=== PATIENT | male | born 1975 | race Caucasian/White ===

== ENCOUNTER 2020-10-20 10:57 | Outpatient (CLI) | payer OTHER, SELFPAY ==
[2020-10-20 11:46] LABS: SARS-CoV-2 Ag Negative (Negative)
== END 2020-10-20 10:58 | disposition home or self-care (01) ==
LOC: CHSLAB 11:04
PROVIDERS: PCP Family Medicine; Visit Provider Family Medicine
DX: Z20.828 Contact with and (suspected) exposure to other viral communicable diseases (principal)
CPT/HCPCS: 87426

== ENCOUNTER 2020-12-30 05:42 | Inpatient (IN) | payer OTHER, SELFPAY ==
[2020-12-30] VITALS (11 sets, daily range): BP systolic 121–152; BP diastolic 39–101; PULSE 79–106; RESP 14–20; TEMP 36.6–38.4; O2SAT 94–98; BMI 28.5
--- NOTE | ~2020-12-30 | US_ITS ---
EXAMINATION: US right upper quadrant EXAM DATE: 12/30/2020 15:57 INDICATION: Pancreatitis, elevated lipase. TECHNIQUE: Multiple grayscale and Doppler images of the abdomen right upper quadrant were obtained (b y a technologist who performed the scan) and subsequently reviewed. There is no prior study for samia moralez. FINDINGS: The pancreatic head and body are normal in appearance. The pancreatic tail is not visualized. Please note that acute uncomplicated pancreatitis typically does not have any sonographic findings. The froilan er has normal echogenicity and contour. There are no focal liver lesions identified. There is no e vidence of intrahepatic biliary duct dilation. Portal venous flow was seen in the hepatopedal, jayna l direction and has normal Doppler waveform. No right-sided hydronephrosis. Common bile duct measures 5 mm, which is normal. The gallbladder wall is normal in thickness, with ex pected amount of distention. No sonographic evidence of pericholecystic fluid. There is no cholelit hiases. Technologist performing exam reports patient did not demonstrate sonographic Spaulding's sign. Please note that this sign is less reliable in patients who have received pain medication. IMPRESSION: Unremarkable abdominal ultrasound exam. Reviewed, dictated and finalized at location B. SPLITTER
--- NOTE | ~2020-12-30 | CT_ITS ---
EXAMINATION: CT abdomen pelvis w con INDICATION: Abdominal pain, elevated lipase TECHNIQUE: Computed tomographic images of the abdomen and pelvis were obtained after the administrati on of 100 cc of Omnipaque 350 intravenous contrast. The dose-length product (DLP) was 795.88 mGy-cm. Automated exposure control and iterative reconstruction technique were employed. COMPARISON: None available FINDINGS: The lung bases are clear. The heart size is normal. The liver is diffusely low in attenuati on when compared with the spleen, consistent with hepatic steatosis. Small areas of low attenuation i n the spleen could reflect old granulomatous disease. The gallbladder and adrenal glands are normal. There is mild fat stranding surrounding the pancreas. There is also minimal inflammation surrounding the second portion of the duodenum. A 1.7 cm cystic lesion is present in the body of the pancreas. Cy sts of the kidneys measure up to 10 mm on the right. No pathologically enlarged abdominal or pelvic l ymph nodes are identified. There is no free intraperitoneal gas or evidence of bowel obstruction. The appendix is normal. There is a small fat-containing umbilical hernia. A mixed lytic and sclerotic le kourtney of the right femoral neck has the appearance of an enchondroma. IMPRESSION: 1. Findings consistent with acute pancreatitis. 2. Cystic lesion in the body of the pancreas could reflect sequela of prior pancreatitis. Follow-up M RI without and with contrast in six months is recommended. Reviewed, dictated and finalized at location A. L STRETCHER IMPRESSION: 1. Findings consistent with acute pancreatitis. 2. Cystic lesion in the body of the pancreas could reflect sequela of prior day creatitis. Follow-up MRI without and with contrast in six months is recommended .
--- NOTE | 2020-12-30 05:51 | ED.ABDPAIN ---
HPI - Abdominal Pain General Chief Complaint: Abdominal Pain <Emerson Beebe MD - Last Filed: 12/30/20 06:27> Stated Complaint: adominal pain <Emerson Beebe MD - Last Filed: 12/30/20 06:27> Time Seen by Provider: 12/30/20 05:52 <Emerson Beebe MD - Last Filed: 12/30/20 06:27> Source: patient <Emerson Beebe MD - Last Filed: 12/30/20 06:27> Mode of arrival: ambulatory <Emerson Beebe MD - Last Filed: 12/30/20 06:27> Limitations: no limitations <Emerson Beebe MD - Last Filed: 12/30/20 06:27> History of Present Illness HPI narrative: 45-year-old man with a history of coronary artery disease comes in today complaining abdominal pain S started about 1:00 a.m.. Patient states that it was originally in the middle of his abdomen is now moved to his right lower quadrant. It is worse with movement and coughing. He has also had some Nonbloody nonbilious vomiting which now has some streaks of blood in it. He denies chest pain, shortness breath, syncope, diarrhea or blood in his stools, cough or cold symptoms, or prior similar symptoms. <Emerson Beebe MD - Last Filed: 12/30/20 06:27> MD elicited complaint: abdominal pain <Emerson Beebe MD - Last Filed: 12/30/20 06:27> Pertinent past history: myocardial infarction <Emerson Beebe MD - Last Filed: 12/30/20 06:27> Onset (ago): hour(s) (5) <Emerson Beebe MD - Last Filed: 12/30/20 06:27> Pain Consistency: constant <Emerson Beebe MD - Last Filed: 12/30/20 06:27> Location: RLQ <Emerson Beebe MD - Last Filed: 12/30/20 06:27> Severity: severe <Emerson Beebe MD - Last Filed: 12/30/20 06:27> Quality: sharp <Emerson Beebe MD - Last Filed: 12/30/20 06:27> Radiation: back <Emerson Beebe MD - Last Filed: 12/30/20 06:27> Exacerbating factors: movement and other (palpation) <Emerson Beebe MD - Last Filed: 12/30/20 06:27> Relieving factors: rest <Emerson Beebe MD - Last Filed: 12/30/20 06:27> Associated symptoms: nausea and vomiting <Emerson Beebe MD - Last Filed: 12/30/20 06:27> Related Data Home Medications: Home Medications Medication Instructions Recorded Confirmed aspirin 81 mg PO DAILY 12/30/20 12/30/20 atorvastatin 20 mg PO DAILY 12/30/20 12/30/20 clonazepam [Klonopin] 0.5 mg PO HS 12/30/20 12/30/20 metoprolol succinate 25 mg PO BID 12/30/20 12/30/20 venlafaxine 37.5 mg PO BID 12/30/20 12/30/20 <Emerson Beebe MD - Last Filed: 12/30/20 06:27> Allergies/Adverse Reactions: Allergies Allergy/AdvReac Type Severity Reaction Status Date / Time No Known Allergies Allergy Verified 12/30/20 05:53 <Emerson Beebe MD - Last Filed: 12/30/20 06:27> Review of Systems Constitutional: Constitutional: Denies chills and Denies fever(s) <Emerson Beebe MD - Last Filed: 12/30/20 06:27> Eyes: Eyes: Denies change in vision and Denies photophobia <Emerson Beebe MD - Last Filed: 12/30/20 06:27> ENT: Denies nasal congestion and Denies sore throat <Emerson Beebe MD - Last Filed: 12/30/20 06:27> Cardiovascular: Cardiovascular: Denies chest pain and Denies radiating jaw, neck or arm pain <Emerson Beebe MD - Last Filed: 12/30/20 06:27> Respiratory: Respiratory: Denies cough and Denies dyspnea <Emerson Beebe MD - Last Filed: 12/30/20 06:27> Gastrointestinal: Gastrointestinal: Reports as per HPI, Reports abdominal pain, Reports nausea and Reports vomiting <Emerson Beebe MD - Last Filed: 12/30/20 06:27> Genitourinary: Genitourinary: Denies hematuria, Denies dysuria and Denies urinary frequency <Emerson Beebe MD - Last Filed: 12/30/20 06:27> Musculoskeletal: Musculoskeletal: Denies back pain, Denies arthralgias and Denies joint swelling <Emerson Beebe MD - Last Filed: 12/30/20 06:27> Integumentary/Breasts: Skin/Breast: Denies pruritus, De
--- NOTE | 2020-12-30 05:55 | ECG_ITS ---
Measurements Intervals [place] Rate: 101 P: 24 MA: 146 QRS: -7 QRSD: 94 T: 78 QT: 333 QTc: 432 Interpretive Statements SINUS TACHYCARDIA INCOMPLETE RIGHT BUNDLE BRANCH BLOCK NONSPECIFIC ST & T-WAVE ABNORMALITY- HIGH LATERAL LEADS BASELINE WANDER- II, AVR, AVL, AVF, V1, V4-V6 BORDERLINE ECG Electronically Signed On 12-30-2020 8:14:59 GRAPHITE GRINDER by Yassine Duron D.O.
[2020-12-30] MEDS: ONDANSETRON INJ 4 MG/2 ML VIAL IV PUSH (06:09)
[2020-12-30] MEDS: HYDROmorphone HCL INJ (*CRX) 2 MG/ML VIAL 0.5 MG IV PUSH ×2 (06:10→06:46)
[2020-12-30] MEDS: SODIUM CHLORIDE 0.9% IV 1,000 ML 999 ML IV CONT (06:10)
[2020-12-30] MEDS: PANTOPRAZOLE SODIUM IV 40 MG VIAL IV PUSH (06:10)
[2020-12-30 06:22] LABS: Basophils Absolute Auto 0.03 K/mm3 (0.00-0.10); Basophils Percent Auto 0.3 % (0.0-1.0); Eosinophils Percent Auto 0.9 % (1.0-6.0); Hemoglobin 14.7 g/dL (14.0-18.0); Immature Granulocyte Absolute 0.05 K/mm3 (0.00-0.00); Immature Granulocyte Percent A 0.5 % (0.0-0.0); Lymphocytes Absolute Auto 1.54 K/mm3 (1.10-4.50); Lymphocytes Percent Auto 14.2 % (18.0-42.0); Mean Corpuscular HGB Conc 34.2 g/dL (32.0-36.0); Mean Corpuscular Hemoglobin 29.6 pg (27.0-31.0); Mean Corpuscular Volume 86.7 fL (78.0-102.0); Mean Platelet Volume 10.6 fl (8.7-11.0); Monocytes Absolute Auto 1.04 K/mm3 (0.10-0.90); Monocytes Percent Auto 9.6 % (2.0-11.0); Neutrophils Absolute Auto 8.1 K/mm3 (1.7-7.2); Neutrophils Percent Auto 74.5 % (50.0-70.0); Platelet Count Result 200 K/mm3 (150-420); Red Blood Count 4.96 M/mm3 (4.70-6.10); Red Cell Distribution Width 13.2 % (11.6-14.4); White Blood Count 10.8 K/mm3 (4.8-10.8)
[2020-12-30 06:37] LABS: Prothrombin Time 10.3 Seconds (9.50-12.10)
[2020-12-30 06:41] LABS: Lactic Acid Reflex 1.4 mmol/L (0.4-2.0)
[2020-12-30 06:45] LABS: Alanine Aminotransferase 51 U/L (16-63); Albumin Level 4.3 g/dL (3.4-5.0); Alkaline Phosphatase 93 U/L (46-116); Anion Gap 12 mmol/L (8-16); Aspartate Amino Transferase 20 U/L (15-37); Bilirubin,Total 0.8 mg/dL (0.00-1.00); Blood Urea Nitrogen 15 mg/dL (7-18); Calcium 9.3 mg/dL (8.5-10.1); Carbon Dioxide 24 mmol/L (21-32); Chloride 100 mmol/L (98-108); Estimated CRCL calculation 77 ml/min; Estimated Glomerular Filt Rate > 60; Glucose 118 mg/dL (70-99); Osmolality Calculated 283 mOsm/kg (285-295); Potassium 3.8 mmol/L (3.5-5.1); Sodium 136 mmol/L (136-145); Total Protein 7.6 g/dL (6.4-8.2); Troponin I 6.8 ng/L (0.00-60.4)
[2020-12-30] MEDS: SODIUM CHLORIDE 0.9% IV 1,000 ML 200 ML IV CONT (07:02)
[2020-12-30 07:04] LABS: Lipase 7084 U/L (73-393)
[2020-12-30] MEDS: HYDROmorphone HCL INJ (*CRX) 2 MG/ML VIAL 1 MG IV PUSH ×5 (08:01→21:54)
--- NOTE | 2020-12-30 09:40 | PM.IMHP ---
H&P: HPI History of Present Illness Date/Time: 12/30/20 09:40 Chief Complaint: Abdominal pain Narrative: Iraj Thakur is a 45 year old male that presented to our ED with complaints of abdominal pain. Patient has a past medical history of CAD, hypertension and HLD. According to patient a couple of days ago he started to develop right-sided abdominal pain he later started to develop pain in his epigastric area that migrated to his lower back. Patient notes that he did have a couple episodes of vomiting. Patient notes that he did take ibuprofen at home with no relief he also noted that he had a meal while at home and his pain did not worsen or improve with his meals. Patient notes that he does not drink an excessive amount of alcohol,he had not had a drink in 20 years but he recently had a small amount of alcoholic beverage. Patient notes that he does feel really anxious, he notes that he feels like a loser because he drank a small amount of alcohol. Patient educated on pancreatitis. Patient lipase 7084, his CT of the pelvis and abdomen indicate pancreatitis. The patient denies SOB, CP, palpitation, extremity numbness, lightheadedness, dizziness, diarrhea, chills, or fever. Patient notes that he might possibly be constipated suppository added. Patient continues to complain of abdominal pain to his right lower quadrant and epigastric area has not had any nausea since admission. Review of Systems Review of Systems: All systems reviewed & are unremarkable except as noted in HPI and below (12 point system review) [facility] Past Medical History Medical History (Updated 12/30/20 @ 08:09 by Janell Siegel MD) CAD (coronary artery disease) HLD (hyperlipidemia) HTN (hypertension) Surgical History Surgical History (Updated 12/30/20 @ 06:23 by Emerson Beebe MD) Hx of CABG Social History Social History (Updated 12/30/20 @ 06:24 by Emerson Beebe MD) Smoking status: Former smoker Alcohol intake: current Alcohol use details: Twice a week Substance use: never Living arrangements: with family Meds Home Medications and Allergies Home Medications Medication Instructions Recorded Confirmed Type aspirin 81 mg PO DAILY 12/30/20 12/30/20 History atorvastatin 20 mg PO DAILY 12/30/20 12/30/20 History clonazepam [Klonopin] 0.5 mg PO HS 12/30/20 12/30/20 History metoprolol succinate 25 mg PO BID 12/30/20 12/30/20 History venlafaxine 37.5 mg PO BID 12/30/20 12/30/20 History Allergies Allergy/AdvReac Type Severity Reaction Status Date / Time No Known Allergies Allergy Verified 12/30/20 05:53 Vital Signs Vital Signs - 24 hr 12/30/20 05:45 12/30/20 07:51 12/30/20 08:40 Temperature 97.9 F Pulse Rate 104 H 79 97 Respiratory Rate 18 14 16 Blood Pressure 152/101 H 139/89 121/85 Pulse Oximetry 97 96 98 Exam Narrative: Exam Narrative: GENERAL: This is a well-nourished, well-developed patient, in no apparent distress. HEAD: normocephalic, atraumatic. EYES: PERRL. Sclera clear/white. Vision is grossly intact. EARS: External ears normal, auditory canals clear and without drainage, TMs normal without perforation. Hearing grossly intact. NOSE: External nose normal with no obvious nasal discharge, nares without redness, no rhinorrhea. THROAT: Mucous membranes moist, posterior pharynx clear. NECK: Neck supple, non-tender without lymphadenopathy, masses or thyromegaly. CARDIOVASCULAR: Regular rate and rhythm without murmurs, gallops, or rubs. RESPIRATORY: Clear to auscultation. Breath sounds equal bilaterally. No wheezes, rales, or rhonchi. GASTROINTESTINAL: Abdomen soft, right lower quadrant tenderness . Bowel sounds are active. No hepato-splenomegaly, or palpable masses. SKIN: warm, intact with no suspicious lesions or rash, good texture and turgor. NEURO: awake, alert, and oriented to person, place and time. There were no obvious focal neurologic abnormalities. Steady gait EXTREMITIES: Normal ran
[2020-12-30] MEDS: LORazepam INJ (*CRX) 2 MG/ML VIAL 1 MG IV PUSH ×2 (10:00→21:48)
[2020-12-30] MEDS: ENOXAPARIN 40 MG/0.4 ML SYRINGE SUB-Q (10:02)
[2020-12-30] MEDS: LACTATED RINGERS 1,000 ML 100 ML IV CONT ×2 (11:32→21:44)
[2020-12-30] MEDS: ACETAMINOPHEN 325 MG TABLET 650 MG PO ×2 (17:35→21:47)
--- NOTE | 2020-12-30 19:39 | PC.NURSE ---
Patient's temp of 101.1 reported to charge nurse, who in then notified MD with new orders received.
[2020-12-31] VITALS (9 sets, daily range): BP systolic 94–150; BP diastolic 52–112; PULSE 76–103; RESP 18–20; TEMP 36.4–38.9; O2SAT 94–98
[2020-12-31] MEDS: HYDROmorphone HCL INJ (*CRX) 2 MG/ML VIAL 1 MG IV PUSH ×5 (00:55→22:53)
[2020-12-31 06:03] LABS: Hematocrit 37.4 % (40.0-54.0); Hemoglobin 12.5 g/dL (14.0-18.0); Mean Corpuscular HGB Conc 33.4 g/dL (32.0-36.0); Mean Corpuscular Hemoglobin 29.6 pg (27.0-31.0); Mean Corpuscular Volume 88.6 fL (78.0-102.0); Mean Platelet Volume 9.7 fl (8.7-11.0); Platelet Count Result 132 K/mm3 (150-420); Red Blood Count 4.22 M/mm3 (4.70-6.10); Red Cell Distribution Width 13.2 % (11.6-14.4); White Blood Count 11.9 K/mm3 (4.8-10.8)
[2020-12-31 06:26] LABS: Alanine Aminotransferase 31 U/L (16-63); Albumin Level 3.2 g/dL (3.4-5.0); Alkaline Phosphatase 72 U/L (46-116); Anion Gap 8 mmol/L (8-16); Aspartate Amino Transferase 19 U/L (15-37); Bilirubin,Total 1.2 mg/dL (0.00-1.00); Blood Urea Nitrogen 5 mg/dL (7-18); Calcium 8.3 mg/dL (8.5-10.1); Carbon Dioxide 26 mmol/L (21-32); Chloride 99 mmol/L (98-108); Estimated CRCL calculation 89 ml/min; Estimated Glomerular Filt Rate > 60; Glucose 115 mg/dL (70-99); Lipase 316 U/L (73-393); Magnesium 1.9 mg/dL (1.8-2.4); Osmolality Calculated 274 mOsm/kg (285-295); Potassium 3.7 mmol/L (3.5-5.1); Sodium 133 mmol/L (136-145); Total Protein 6.5 g/dL (6.4-8.2)
[2020-12-31 07:00] LABS: Cholesterol 173 mg/dL (0-200); HDL Direct 49 mg/dL (40-60); LDL Cholesterol Calculated 73 mg/dL (<130); Triglycerides 255 mg/dL (0-150)
--- NOTE | 2020-12-31 07:36 | P.PN_ITS ---
Progress Note: A&P Assessment and Plan (1) Pancreatitis: Qualifiers: Acute pancreatitis complication: no infection or necrosis Chronicity: acute Pancreatitis type: alcohol induced Qualified Code(s): K85.20 - Alcohol induced acute pancreatitis without necrosis or infection <ERNESTO Harris - Last Filed: 12/31/20 11:12> Code(s): K85.90 - Acute pancreatitis without necrosis or infection, unspecified <ERNESTO Harris - Last Filed: 12/31/20 11:12> Status: Acute <ERNESTO Harris - Last Filed: 12/31/20 11:12> Assessment and Plan: * Lipase 7000-->300 improved * CT of the abdomen pelvis indicate pancreatitis * Ultrasound of the gallbladder unremarkable * Patient diet advanced to regular will do a repeat lipase at noon * A.m. labs * Adjusted pain medication, pain medication not therapeutic * Continues Zofran for antinausea * Continue IV fluid * Started Zosyn <Jakob Sherwood ERNESTO - Last Filed: 12/31/20 11:12> (2) HLD (hyperlipidemia): Code(s): E78.5 - Hyperlipidemia, unspecified <Jakob Sherwood ERNESTO - Last Filed: 12/31/20 11:12> Status: Acute <Jakob Sherwood ERNESTO - Last Filed: 12/31/20 11:12> Assessment and Plan: * Continue home medication <Jakob Sherwood ERNESTO - Last Filed: 12/31/20 11:12> (3) HTN (hypertension): Code(s): I10 - Essential (primary) hypertension <Jakob Sherwood ERNESTO - Last Filed: 12/31/20 11:12> Status: Acute <Jakob Sherwood ERNESTO - Last Filed: 12/31/20 11:12> Assessment and Plan: * Slightly elevated possibly secondary to pain * Resume home medication * Will adjust medication as needed <Jakob Sherwood ERNESTO - Last Filed: 12/31/20 11:12> (4) CAD (coronary artery disease): Code(s): I25.10 - Atherosclerotic heart disease of [place] coronary artery without angina pectoris <ERNESTO Harris - Last Filed: 12/31/20 11:12> Status: Acute <ERNESTO Harris - Last Filed: 12/31/20 11:12> Assessment and Plan: * Continue home medication <ERNESTO Harris - Last Filed: 12/31/20 11:12> Review of Systems Review of Systems: All systems reviewed & are unremarkable except as noted in HPI and below (12 point system review) <ERNESTO Harris - Last Filed: 12/31/20 11:12> Exam Narrative: Exam Narrative: GENERAL: This is a well-nourished, well-developed patient, in no apparent distress. HEAD: normocephalic, atraumatic. EYES: PERRL. Sclera clear/white. Vision is grossly intact. EARS: External ears normal, auditory canals clear and without drainage, TMs normal without perforation. Hearing grossly intact. NOSE: External nose normal with no obvious nasal discharge, nares without redness, no rhinorrhea. THROAT: Mucous membranes moist, posterior pharynx clear. NECK: Neck supple, non-tender without lymphadenopathy, masses or thyromegaly. CARDIOVASCULAR: Regular rate and rhythm without murmurs, gallops, or rubs. RESPIRATORY: Clear to auscultation. Breath sounds equal bilaterally. No wheezes, rales, or rhonchi. GASTROINTESTINAL: Abdomen soft, right lower quadrant tenderness . Bowel sounds are active. No hepato-splenomegaly, or palpable masses. SKIN: warm, intact with no suspicious lesions or rash, good texture and turgor. NEURO: awake, alert, and oriented to person, place and time. There were no obvious focal neurologic abnormalities. Steady gait EXTREMITIES: Normal range of motion. No edema. No calf tenderness. Negative Homans sign bilaterally. BACK: Nontender without deformit
--- NOTE | 2020-12-31 07:36 | WPDPN ---
Progress Note: A&P Assessment and Plan (1) Pancreatitis: Qualifiers: Acute pancreatitis complication: no infection or necrosis Chronicity: acute Pancreatitis type: alcohol induced Qualified Code(s): K85.20 - Alcohol induced acute pancreatitis without necrosis or infection <Jakob Sherwood ERNESTO - Last Filed: 12/31/20 11:12> Code(s): K85.90 - Acute pancreatitis without necrosis or infection, unspecified <Jakob Sherwood ERNESTO - Last Filed: 12/31/20 11:12> Status: Acute <Jakob Sherwood IVONC - Last Filed: 12/31/20 11:12> Assessment and Plan: Lipase 7000-->[address] of the abdomen pelvis indicate pancreatitis Ultrasound of the gallbladder unremarkable Patient diet advanced to regular will do a repeat lipase at noon A.m. labs Adjusted pain medication, pain medication not therapeutic Continues Zofran for antinausea Continue IV fluid Started Zosyn <Jakob Sherwood ERNESTO - Last Filed: 12/31/20 11:12> (2) HLD (hyperlipidemia): Code(s): E78.5 - Hyperlipidemia, unspecified <Jakob Sherwood IVONC - Last Filed: 12/31/20 11:12> Status: Acute <Jakob Sherwood ERNESTO - Last Filed: 12/31/20 11:12> Assessment and Plan: Continue home medication <Jakob Sherwood ERNESTO - Last Filed: 12/31/20 11:12> (3) HTN (hypertension): Code(s): I10 - Essential (primary) hypertension <Jakob Sherwood IVONC - Last Filed: 12/31/20 11:12> Status: Acute <Jakob Sherwood ERNESTO - Last Filed: 12/31/20 11:12> Assessment and Plan: Slightly elevated possibly secondary to pain Resume home medication Will adjust medication as needed <Jakob CramerKenia Presley ERNESTO - Last Filed: 12/31/20 11:12> (4) CAD (coronary artery disease): Code(s): I25.10 - Atherosclerotic heart disease of [place] coronary artery without angina pectoris <Sonda ERNESTO Balderas - Last Filed: 12/31/20 11:12> Status: Acute <IVON HarrisLexis - Last Filed: 12/31/20 11:12> Assessment and Plan: Continue home medication <ERNESTO Harris - Last Filed: 12/31/20 11:12> Review of Systems Review of Systems: All systems reviewed & are unremarkable except as noted in HPI and below (12 point system review) <ERNESTO Harris - Last Filed: 12/31/20 11:12> Exam Narrative: Exam Narrative: GENERAL: This is a well-nourished, well-developed patient, in no apparent distress. HEAD: normocephalic, atraumatic. EYES: PERRL. Sclera clear/white. Vision is grossly intact. EARS: External ears normal, auditory canals clear and without drainage, TMs normal without perforation. Hearing grossly intact. NOSE: External nose normal with no obvious nasal discharge, nares without redness, no rhinorrhea. THROAT: Mucous membranes moist, posterior pharynx clear. NECK: Neck supple, non-tender without lymphadenopathy, masses or thyromegaly. CARDIOVASCULAR: Regular rate and rhythm without murmurs, gallops, or rubs. RESPIRATORY: Clear to auscultation. Breath sounds equal bilaterally. No wheezes, rales, or rhonchi. GASTROINTESTINAL: Abdomen soft, right lower quadrant tenderness . Bowel sounds are active. No hepato-splenomegaly, or palpable masses. SKIN: warm, intact with no suspicious lesions or rash, good texture and turgor. NEURO: awake, alert, and oriented to person, place and time. There were no obvious focal neurologic abnormalities. Steady gait EXTREMITIES: Normal range of motion. No edema. No calf tenderness. Negative Homans sign bilaterally. BACK: Nontender without deformity or crepitance. No flank tenderness. <ERNESTO Harris - Last Filed: 12/31/20 11:12> Objective Data Vital Signs Vital Signs: Vital Signs - 24 hr 12/30/20 07:51 12/30/20 08:40 12/30/20 08:45 Temperature 97.9 F Pulse Rate 79 97 100 Respiratory Rate 14 16 18 Blood Pressure 139/89 121/85 142/100 H Pulse Oximetry 96 98
[2020-12-31] MEDS: MORPHINE SULFATE (*CRX) 2 MG/ML INJ IV PUSH (08:12)
[2020-12-31] MEDS: ASPIRIN 81 MG ENTERIC TABLET PO (08:13)
[2020-12-31] MEDS: ENOXAPARIN 40 MG/0.4 ML SYRINGE SUB-Q (08:13)
[2020-12-31] MEDS: ATORVASTATIN 10 MG TABLET 20 MG PO (08:13)
[2020-12-31] MEDS: ACETAMINOPHEN 325 MG TABLET 650 MG PO (08:38)
[2020-12-31] MEDS: HYDROcodone/acetaminophen (*CRX) 10-325 MG TABLET 1 TAB PO ×3 (09:28→20:18)
[2020-12-31] MEDS: LACTATED RINGERS 1,000 ML 100 ML IV CONT ×2 (10:17→21:35)
[2020-12-31] MEDS: MORPHINE SULFATE (*CRX) 4 MG/ML INJ IV PUSH ×3 (10:18→16:51)
[2020-12-31] MEDS: METOPROLOL TARTRATE 50 MG TAB PO ×2 (10:28→20:19)
[2020-12-31] MEDS: hydrALAZINE HCL 20 MG/ML VIAL 5 MG IV PUSH (16:10)
[2020-12-31] MEDS: VENLAFAXINE HCL 37.5 MG TABLET PO (16:57)
--- NOTE | 2020-12-31 19:59 | PC.NURSE ---
Dr Moreno notified that patient is still rating his pain @ 8. Dr says he will put an order in for another dose of Dilaudid.
[2020-12-31] MEDS: clonazePAM (*CRX) 0.5 MG TABLET PO (20:18)
[2020-12-31] MEDS: VENLAFAXINE HCL XR 75 MG CAP.ER.24H PO (20:19)
[2020-12-31] MEDS: LORazepam INJ (*CRX) 2 MG/ML VIAL 1 MG IV PUSH (21:45)
[2020-12-31] MEDS: diphenhydrAMINE HCl INJ 50 MG/ML VIAL IV PUSH (21:45)
[2021-01-01] VITALS: BP 137/92; PULSE 94; RESP 18; TEMP 37; O2SAT 95
[2021-01-01] MEDS: HYDROcodone/acetaminophen (*CRX) 10-325 MG TABLET 1 TAB PO ×2 (02:41→08:37)
[2021-01-01] MEDS: HYDROmorphone HCL INJ (*CRX) 2 MG/ML VIAL 1 MG IV PUSH ×2 (02:42→06:06)
[2021-01-01 04:00] VITALS: BP 149/91; PULSE 96; RESP 18; TEMP 37.1; O2SAT 96
[2021-01-01 05:45] LABS: Hematocrit 36.1 % (40.0-54.0); Hemoglobin 11.9 g/dL (14.0-18.0); Mean Corpuscular Hemoglobin 29.1 pg (27.0-31.0); Mean Corpuscular Volume 88.3 fL (78.0-102.0); Mean Platelet Volume 9.8 fl (8.7-11.0); Platelet Count Result 148 K/mm3 (150-420); Red Blood Count 4.09 M/mm3 (4.70-6.10); Red Cell Distribution Width 12.8 % (11.6-14.4); White Blood Count 12.2 K/mm3 (4.8-10.8)
[2021-01-01 06:05] LABS: Alanine Aminotransferase 32 U/L (16-63); Albumin Level 2.9 g/dL (3.4-5.0); Alkaline Phosphatase 87 U/L (46-116); Anion Gap 10 mmol/L (8-16); Aspartate Amino Transferase 14 U/L (15-37); Bilirubin,Total 1.1 mg/dL (0.00-1.00); Blood Urea Nitrogen 7 mg/dL (7-18); Calcium 8.4 mg/dL (8.5-10.1); Carbon Dioxide 28 mmol/L (21-32); Chloride 98 mmol/L (98-108); Estimated CRCL calculation 87 ml/min; Estimated Glomerular Filt Rate > 60; Glucose 106 mg/dL (70-99); Lipase 79 U/L (73-393); Osmolality Calculated 280 mOsm/kg (285-295); Potassium 3.6 mmol/L (3.5-5.1); Sodium 136 mmol/L (136-145); Total Protein 6.7 g/dL (6.4-8.2)
[2021-01-01 08:00] VITALS: BP 120/74; PULSE 58; RESP 18; TEMP 36.7; O2SAT 94
[2021-01-01] MEDS: LACTATED RINGERS 1,000 ML 100 ML IV CONT (08:36)
[2021-01-01] MEDS: ASPIRIN 81 MG ENTERIC TABLET PO (08:38)
[2021-01-01] MEDS: ATORVASTATIN 10 MG TABLET 20 MG PO (08:38)
[2021-01-01 08:39] VITALS: PULSE 58
[2021-01-01] MEDS: METOPROLOL TARTRATE 50 MG TAB PO (08:39)
[2021-01-01] MEDS: ENOXAPARIN 40 MG/0.4 ML SYRINGE SUB-Q (08:40)
[2021-01-01 09:10] LABS: Lactic Acid Reflex 0.7 mmol/L (0.4-2.0)
--- NOTE | 2021-01-01 11:45 | PM.DS ---
DS: Admitting Diagnosis Admitting Diagnosis Admitting Diagnosis: Pancreatitis DS: Discharge Diagnosis Discharge Diagnosis (1) Pancreatitis: Qualifiers: Acute pancreatitis complication: no infection or necrosis Chronicity: acute Pancreatitis type: alcohol induced Qualified Code(s): K85.20 - Alcohol induced acute pancreatitis without necrosis or infection Code(s): K85.90 - Acute pancreatitis without necrosis or infection, unspecified Status: Acute Assessment and Plan: Resolved Lipase 7000-->300 improved, now within normal limits CT of the abdomen pelvis indicate pancreatitis Ultrasound of the gallbladder unremarkable Recommended patient consider repeat MRI in 6 months and a HIDA Discharged with Levaquin (2) HLD (hyperlipidemia): Code(s): E78.5 - Hyperlipidemia, unspecified Status: Acute Assessment and Plan: Continue home medication (3) HTN (hypertension): Code(s): I10 - Essential (primary) hypertension Status: Acute Assessment and Plan: Continue home medication Will adjust medication as needed (4) CAD (coronary artery disease): Code(s): I25.10 - Atherosclerotic heart disease of [place] coronary artery without angina pectoris Status: Acute Assessment and Plan: Continue home medication DS: Summary Hospital Course Hospital Course: Iraj Thakur is a 45 year old male that presented to our ED with complaints of abdominal pain. Patient has a past medical history of CAD, hypertension and HLD. According to patient he started to develop right-sided abdominal pain. Patient notes that he did have a couple episodes of vomiting. Patient notes that he did take ibuprofen at home with no relief he also noted that he had a meal while at home and his pain did not worsen or improve with his meals. Patient notes that he does not drink an excessive amount of alcohol,he had not had a drink in 20 years but he recently had a small amount of alcoholic beverage. . On admission patient lipase 7084, his CT of the pelvis and abdomen indicate pancreatitis. The patient denies SOB, CP, palpitation, extremity numbness, lightheadedness, dizziness, diarrhea, chills, or fever this day of discharge and agrees that he is ready for discharge. Patient notes that his condition has improved since admission he does have abdominal tenderness. It is advised the patient get a repeat MRI in 6 months and also a HIDA. He will also discharged home with this antibiotics due to his temperature of 101 as inpatient. Time Spent with Patient Time attestation: Total time spent providing and/or coordinating discharge services: Exam Narrative: Exam Narrative: GENERAL: This is a well-nourished, well-developed patient, in no apparent distress. HEAD: normocephalic, atraumatic. EYES: PERRL. Sclera clear/white. Vision is grossly intact. EARS: External ears normal, auditory canals clear and without drainage, TMs normal without perforation. Hearing grossly intact. NOSE: External nose normal with no obvious nasal discharge, nares without redness, no rhinorrhea. THROAT: Mucous membranes moist, posterior pharynx clear. NECK: Neck supple, non-tender without lymphadenopathy, masses or thyromegaly. CARDIOVASCULAR: Regular rate and rhythm without murmurs, gallops, or rubs. RESPIRATORY: Clear to auscultation. Breath sounds equal bilaterally. No wheezes, rales, or rhonchi. GASTROINTESTINAL: Abdomen soft, right lower quadrant tenderness . Bowel sounds are active. No hepato-splenomegaly, or palpable masses. SKIN: warm, intact with no suspicious lesions or rash, good texture and turgor. NEURO: awake, alert, and oriented to person, place and time. There were no obvious focal neurologic abnormalities. Steady gait EXTREMITIES: Normal range of motion. No edema. No calf tenderness. Negative Homans sign bilaterally. BACK: Nontender without deformity or crepitance. No flank tenderness. DS: Data Data Comple
--- NOTE | 2021-01-01 13:58 | PC.NURSE ---
0940 c/o pain earilier and prn norco given. see mar. c/o pain is a 9 but is better than yesterday. claims pain is now better than this morning but rates it a 9. cont to rest quietly in bed at this time. kim mcmillan 1100 dozes in and out. resp even unlabored. arouses easily kim mcmillan 1150discharge instructions went over. vocalizes an understanding. iv removed. site clean and dry. no s/s infection. encouraged to watch for s/s trouble from iv site. amb out of facility to his own auto. kim mcmillan
--- NOTE | 2021-01-06 12:47 | PC.NURSE ---
Pt states he received and understood his discharge instructions. He states everything else was great .
== END 2021-01-01 11:50 | disposition home or self-care (01) | DRG 440 ==
LOC: CHSED 08:10 → CHS2ND 08:22
PROVIDERS: Emergency Medicine; Nurse Practitioner; Admitting Provider Emergency Medicine; Emergency Provider Emergency Medicine; PCP Nurse Practitioner; Visit Provider Emergency Medicine
DX: K85.90 Acute pancreatitis without necrosis or infection, unspecified (principal); I10 Essential (primary) hypertension; I25.10 Atherosclerotic heart disease of native coronary artery without angina pectoris; E78.5 Hyperlipidemia, unspecified; Z95.1 Presence of aortocoronary bypass graft; Z87.891 Personal history of nicotine dependence; K85.20 Alcohol induced acute pancreatitis without necrosis or infection
CPT/HCPCS: 36415; 74177; 76705; 80053; 80061; 83605; 83690; 83735; 84484; 85025; 85027; 85610; 85730; 87040; 93005; 96361; 96374; 96375; 96376; 99285; A9270; C9113; J0360; J1170; J1200; J1650; J2060; J2270; J2405; J2543; J7030; J7120; Q9967

== ENCOUNTER 2021-07-12 19:25 | Inpatient (IN) | payer OTHER, SELFPAY ==
--- NOTE | ~2021-07-12 | CT_ITS ---
EXAMINATION: CT abdomen pelvis w con DATE: 07/12/2021 22:11 INDICATION: Epigastric abdominal pain. TECHNIQUE: Computed tomography (CT) of the abdomen and pelvis was performed with 100 mL Omnipaque 350 intravenous contrast. Automated exposure control and iterative reconstruction technique were employe d. The dose-length product was 717.04 mGy-cm. COMPARISON: CT abdomen and pelvis 12/30/2020 FINDINGS: The visualized portions of the lung bases demonstrate mild atelectasis. No pleural effusion . The heart size is normal. No pericardial effusion. Median sternotomy wires are noted. The liver and gallbladder are normal. Again seen are multiple low-attenuation masses in the spleen measuring up to 11 mm, likely granulomatous disease. There is fat stranding around the pancreas, consistent with acu te interstitial pancreatitis. Again seen is a 2.1 cm cystic lesion in the body of the pancreas, consi stent with a pseudocyst. The adrenal glands are normal. There are cysts in the kidneys measuring up t o 14 mm on the right. There are bilateral inguinal hernias containing fat. The prostate is mildly enl arged. There are no dilated loops of bowel. The appendix is normal. There are no pathologically enlar ged lymph nodes. There is no free intraperitoneal fluid. 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 There is mild thora columbar spondylosis. IMPRESSION: 1. Acute interstitial pancreatitis. 2. Stable 2.1 cm pseudocyst. Reviewed, dictated and finalized at location A.
[2021-07-12 19:35] VITALS: BP 142/95; PULSE 85; RESP 20; TEMP 36.8; O2SAT 99
--- NOTE | 2021-07-12 20:18 | ED.ABDPAIN ---
HPI - Abdominal Pain General Chief Complaint: Abdominal Pain Stated Complaint: stomach issue Time Seen by Provider: 07/12/21 19:29 Source: patient and RN notes reviewed Mode of arrival: ambulatory Limitations: no limitations History of Present Illness MD elicited complaint: abdominal pain Pertinent past history: gastritis and other (pancreatitis) Pain Consistency: intermittent Location: epigastric Severity: moderate Pain scale (0-10): 6 Quality: cramping, aching and dull Radiation: none Migration to: no migration Exacerbating factors: nothing Relieving factors: nothing Associated symptoms: nausea Treatments prior to arrival: prescription analgesics Related Data Home Medications Medication Instructions Recorded Confirmed aspirin 81 mg PO DAILY 12/30/20 07/12/21 atorvastatin 20 mg PO DAILY 12/30/20 07/12/21 clonazepam [Klonopin] 0.5 mg PO HS 12/30/20 07/12/21 venlafaxine 75 mg PO QPM 12/30/20 07/12/21 metoprolol tartrate 50 mg PO BID 12/31/20 07/12/21 Allergies Allergy/AdvReac Type Severity Reaction Status Date / Time No Known Allergies Allergy Verified 12/30/20 05:53 Review of Systems Review of Systems: All systems reviewed & are unremarkable except as noted in HPI and below Gastrointestinal: Gastrointestinal: Reports abdominal pain and Reports nausea PMFSH Past Medical History Medical History CAD (coronary artery disease) HLD (hyperlipidemia) HTN (hypertension) Surgical History Surgical History Hx of CABG Social History Social History Smoking packs per day: 1 Smoking cigarettes per day: 20.0 Years smoked: 28 Smoking pack-years: 28.00 Smoking status: Former smoker Tobacco type: cigarettes Alcohol intake: current Alcohol use details: Twice a week Substance use: never Gender identity (if verbalized by the patient): Male Sexual Orientation (if Verbalized by the Patient): Straight or Heterosexual Spiritual care concerns: No Exam Const: General: no acute distress and alert Nutritional Appearance: well nourished Orientation/consciousness: patient oriented x3 HENMT: Head: normal to inspection Ears: external ears normal and TM's normal bilaterally General nose exam: Normal external nose present and Normal nares present Mouth: Yes moist mucous membranes Eyes: Conjunctivae: conjunctivae normal Pupils: Equal, round and reactive pupils present EOM: EOMs intact bilaterally Neck: Neck: normal visual inspection and no lymphadenopathy Chest: Chest palpation & inspection: normal inspection of the chest Resp: Effort & Inspection: normal respiratory effort Auscultation: clear to auscultation bilaterally Cardio: Rate: regular rate Rhythm: regular rhythm GI: GI Palp: Yes Soft to palpation and Yes Tenderness to palpation present (GI) (minimally tender epigastrium) Percussion: Yes normal to percussion : General: Yes bladder normal to palpation and Yes no CVA tenderness Male General Exam: Yes normal external exam Testes: Testes normal Back/Spine/Pelvis: Back: no CVA tenderness Skin: General skin exam: normal color Rashes: no rashes Neuro: General: patient oriented x3, moves all extremities, no meningeal signs, no focal motor deficits and CN's II-XI intact bilaterally Extrem: General: normal to inspection Psych: Appearance: grossly normal and well kempt Mental Status: mental status grossly normal Affect: normal affect Thought content: Yes Normal thought content present Course Course Emergency Course: Pt was stable with less painful abdomen. For admission to tx acute pancreatitis. Reevaluation(s) Reevaluation #1: less abdominal pain. VSS. Date: 07/12/21 Time: 21:34 Vital Signs Vital signs: Vital Signs Temperature 36.8 C 07/12/21 19:35 Pulse Rate 85 07/12/21 19:35 Respiratory Rate 20
[2021-07-12] MEDS: SODIUM CHLORIDE 0.9% IV 500 ML 999 ML IV CONT (20:45)
[2021-07-12] MEDS: PANTOPRAZOLE SODIUM IV 40 MG VIAL IV PUSH (20:45)
[2021-07-12 20:47] LABS: Basophils Absolute Auto 0.03 K/mm3 (0.00-0.10); Basophils Percent Auto 0.4 % (0.0-1.0); Eosinophils Absolute Auto 0.13 K/mm3 (0.02-0.50); Eosinophils Percent Auto 1.5 % (1.0-6.0); Hematocrit 41.9 % (40.0-54.0); Hemoglobin 14.2 g/dL (14.0-18.0); Immature Granulocyte Absolute 0.04 K/mm3 (0.00-0.00); Immature Granulocyte Percent A 0.5 % (0.0-0.0); Lymphocytes Absolute Auto 1.42 K/mm3 (1.10-4.50); Lymphocytes Percent Auto 16.8 % (18.0-42.0); Mean Corpuscular HGB Conc 33.9 g/dL (32.0-36.0); Mean Corpuscular Hemoglobin 29.8 pg (27.0-31.0); Mean Platelet Volume 10.9 fl (8.7-11.0); Monocytes Absolute Auto 0.73 K/mm3 (0.10-0.90); Monocytes Percent Auto 8.7 % (2.0-11.0); Neutrophils Absolute Auto 6.1 K/mm3 (1.7-7.2); Neutrophils Percent Auto 72.1 % (50.0-70.0); Platelet Count Result 163 K/mm3 (150-420); Red Blood Count 4.76 M/mm3 (4.70-6.10); Red Cell Distribution Width 12.9 % (11.6-14.4); White Blood Count 8.4 K/mm3 (4.8-10.8)
[2021-07-12] MEDS: ONDANSETRON INJ 4 MG/2 ML VIAL IV PUSH (20:50)
[2021-07-12 20:54] LABS: Add Urine Microscopic? NO; Appearance Urine Clear (Clear); Bilirubin Urine Negative (Negative); Blood Urine Negative (Negative); Color Urine Light Yellow (Yellow); Glucose Urine UA Negative (Negative); Ketones Urine Negative (Negative); Leukocyte Esterase Ur Negative (Negative); Nitrate Urine Negative (Negative); Protein Urine Negative (Negative); Specific Grav Ur >= 1.030 (1.010-1.020); Urobilinogen Urine 0.2 mg/dL (0.2-1.0); pH Urine 5.5 (5.0-8.0)
[2021-07-12] MEDS: MORPHINE SULFATE (*CRX) 2 MG/ML INJ IV PUSH (20:55)
[2021-07-12 20:58] LABS: Alanine Aminotransferase 41 U/L (16-63); Albumin Level 3.8 g/dL (3.4-5.0); Alkaline Phosphatase 107 U/L (46-116); Aspartate Amino Transferase 12 U/L (15-37); Bilirubin,Total 0.4 mg/dL (0.00-1.00); Blood Urea Nitrogen 12 mg/dL (7-18); Calcium 8.4 mg/dL (8.5-10.1); Carbon Dioxide 26 mmol/L (21-32); Estimated Glomerular Filt Rate > 60; Glucose 120 mg/dL (70-99); Lipase 1336 U/L (73-393); Total Protein 6.9 g/dL (6.4-8.2)
[2021-07-12 20:58] LABS: Amphetamine Screen Urine Negative (Negative); Barbiturate Screen Urine Negative (Negative); Benzodiazepines Screen Urine Negative (Negative); Cannabinoid Screen Urine Negative (Negative); Cocaine Screen Urine Negative (Negative); Methadone Screen Urine Negative (Negative); Opiate Screen Urine Positive (Negative); Phencyclidine Screen Urine Negative (Negative)
[2021-07-12 21:02] LABS: Ethanol < 3 mg/dL (0-6)
--- NOTE | 2021-07-12 22:10 | PC.NURSE ---
[address] with xray staff. 2205 pt returned to room
[2021-07-12 22:34] LABS: Anion Gap 8 mmol/L (8-16); Chloride 105 mmol/L (98-108); Osmolality Calculated 288 mOsm/kg (285-295); Potassium 4.1 mmol/L (3.5-5.1); Sodium 139 mmol/L (136-145)
[2021-07-12 23:17] VITALS: BP 142/91; PULSE 78; RESP 20; TEMP 36.6; O2SAT 98
[2021-07-12 23:45] VITALS: BP 135/90; PULSE 75; RESP 20; TEMP 36.3; O2SAT 100
[2021-07-12 23:52] VITALS: BMI 26.7
[2021-07-13] VITALS (8 sets, daily range): BP systolic 120–145; BP diastolic 80–90; PULSE 79–90; RESP 14–20; TEMP 36.5–37.2; O2SAT 96–99
[2021-07-13] MEDS: MORPHINE SULFATE (*CRX) 2 MG/ML INJ IV PUSH (01:21)
[2021-07-13] MEDS: ONDANSETRON INJ 4 MG/2 ML VIAL IV PUSH (01:22)
[2021-07-13] MEDS: SODIUM CHLORIDE 0.9% IV 1,000 ML 100 ML IV CONT ×3 (01:25→20:29)
[2021-07-13] MEDS: HYDROcodone/acetaminophen (*CRX) 5-325 MG TABLET 1 TAB PO (05:15)
[2021-07-13 07:10] LABS: Basophils Absolute Auto 0.03 K/mm3 (0.00-0.10); Basophils Percent Auto 0.3 % (0.0-1.0); Eosinophils Absolute Auto 0.15 K/mm3 (0.02-0.50); Eosinophils Percent Auto 1.6 % (1.0-6.0); Hematocrit 43.1 % (40.0-54.0); Hemoglobin 14.5 g/dL (14.0-18.0); Immature Granulocyte Absolute 0.04 K/mm3 (0.00-0.00); Immature Granulocyte Percent A 0.4 % (0.0-0.0); Lymphocytes Absolute Auto 1.72 K/mm3 (1.10-4.50); Lymphocytes Percent Auto 18.1 % (18.0-42.0); Mean Corpuscular HGB Conc 33.6 g/dL (32.0-36.0); Mean Corpuscular Hemoglobin 29.9 pg (27.0-31.0); Mean Corpuscular Volume 88.9 fL (78.0-102.0); Mean Platelet Volume 10.9 fl (8.7-11.0); Monocytes Absolute Auto 0.94 K/mm3 (0.10-0.90); Monocytes Percent Auto 9.9 % (2.0-11.0); Neutrophils Absolute Auto 6.6 K/mm3 (1.7-7.2); Neutrophils Percent Auto 69.7 % (50.0-70.0); Platelet Count Result 164 K/mm3 (150-420); Red Blood Count 4.85 M/mm3 (4.70-6.10); White Blood Count 9.5 K/mm3 (4.8-10.8)
[2021-07-13 07:39] LABS: Alanine Aminotransferase 38 U/L (16-63); Albumin Level 3.8 g/dL (3.4-5.0); Alkaline Phosphatase 108 U/L (46-116); Aspartate Amino Transferase < 10 U/L (15-37); Bilirubin,Total 0.7 mg/dL (0.00-1.00); Blood Urea Nitrogen 8 mg/dL (7-18); Calcium 8.3 mg/dL (8.5-10.1); Carbon Dioxide 27 mmol/L (21-32); Estimated CRCL calculation 111 ml/min; Estimated Glomerular Filt Rate > 60; Glucose 99 mg/dL (70-99); Total Protein 7.3 g/dL (6.4-8.2)
[2021-07-13] MEDS: METOPROLOL TARTRATE 50 MG TAB PO ×2 (10:00→20:30)
[2021-07-13] MEDS: ASPIRIN 81 MG ENTERIC TABLET PO (10:00)
--- NOTE | 2021-07-13 11:22 | PM.IMHP ---
H&P: HPI History of Present Illness Date/Time: 07/13/21 11:22 Iraj Thakur is a 45 year old male who is admitted for Pancreatitis. Patient states that he started having epigastric pain last night. He took NyQuil with hopes that would help him sleep. However the abdominal pain became unbearable prompting him to come to the ER. He has had pancreatitis earlier this year in December. Patient states he does not drink much at all if he does it is once a week. He states that when he does drink once week he has maybe 7-8 beers and does not drink liquor anymore. Patient denies chest pain, palpitations, shortness of breath, nausea, vomiting, diarrhea, fever, chills. Patient states he got over COVID approximately 3 weeks ago. Light pace elevated 1336. Chief Complaint: Abdominal Pain Review of Systems Review of Systems: All systems reviewed & are unremarkable except as noted in HPI and below PMFSH Past Medical History Medical History CAD (coronary artery disease) HLD (hyperlipidemia) HTN (hypertension) Surgical History Surgical History Hx of CABG Family History Family History Mother Acute myocardial infarction Social History Social History Smoking packs per day: 1 Smoking cigarettes per day: 20.0 Years smoked: 28 Smoking pack-years: 28.00 Smoking status: Current some day smoker Tobacco type: e-cigarettes/vaping Alcohol intake: current Drinks per week: 10 Alcohol use details: Twice a week Substance use: never Substance use type: does not use Gender identity (if verbalized by the patient): Male Sexual Orientation (if Verbalized by the Patient): Straight or Heterosexual Spiritual care concerns: No Meds Home Medications and Allergies Home Medications Medication Instructions Recorded Confirmed Type aspirin 81 mg PO DAILY 12/30/20 07/12/21 History atorvastatin 20 mg PO DAILY 12/30/20 07/12/21 History clonazepam [Klonopin] 0.5 mg PO HS 12/30/20 07/12/21 History metoprolol tartrate 50 mg PO BID 12/31/20 07/12/21 History hydrocodone-acetaminophen 1 tablet PO Q6H PRN #20 tablet 01/01/21 07/12/21 Rx venlafaxine 75 mg PO QPM 07/13/21 07/13/21 History Allergies Allergy/AdvReac Type Severity Reaction Status Date / Time No Known Allergies Allergy Verified 12/30/20 05:53 Vital Signs Vital Signs - 24 hr 07/12/21 19:35 07/12/21 23:17 07/12/21 23:45 Temperature 98.2 F 98 F 97.4 F L Pulse Rate 85 78 75 Respiratory Rate 20 20 20 Blood Pressure 142/95 H 142/91 H 135/90 Pulse Oximetry 99 98 100 07/13/21 04:00 07/13/21 05:10 07/13/21 10:00 Temperature 98.0 F 98.0 F Pulse Rate 84 80 80 Respiratory Rate 20 20 Blood Pressure 142/90 H 145/90 H Pulse Oximetry 99 99 Exam Const: General: cooperative, healthy appearing, no acute distress, alert, awake and Physically active Nutritional Appearance: average body habitus Resp: Effort & Inspection: normal respiratory effort Auscultation: clear to auscultation bilaterally Cardio: Rate: regular rate Heart sounds: S1 normal heart sound present and S2 normal heart sound present GI: GI Palp: Yes Soft to palpation and Yes Tenderness to palpation present (GI) (epigastric and LUQ) Auscultation: Hypoactive bowel sounds present Skin: General skin exam: normal color and dry skin Neuro: General: oriented to person, oriented to place and oriented to time Cranial nerves: Yes CN's II-XII intact bilaterally (grossly intact) Cognition (Neuro): normal cognition Speech: normal speech Extrem: General: normal to inspection, full ROM and no pedal edema Psych: Appearance: grossly normal Mental Status: mental status grossly normal Speech and movement: Normal speech and movement present Affect: normal affect Attitude: cooperative
[2021-07-13 13:30] LABS: Anion Gap 4 mmol/L (8-16); Chloride 105 mmol/L (98-107); Osmolality Calculated 280 mOsm/kg (285-295); Potassium 3.7 mmol/L (3.4-5.0); Sodium 136 mmol/L (137-145)
[2021-07-13] MEDS: VENLAFAXINE HCL XR 75 MG CAP.ER.24H PO (17:12)
[2021-07-13] MEDS: HYDROmorphone HCL INJ (*CRX) 2 MG/ML VIAL 1 MG IV PUSH ×2 (17:15→23:39)
[2021-07-13] MEDS: clonazePAM (*CRX) 0.5 MG TABLET PO (20:30)
[2021-07-13] MEDS: HYDROcodone/acetaminophen (*CRX) 10-325 MG TABLET 1 TAB PO (20:30)
[2021-07-14] VITALS: BP 129/82; PULSE 67; RESP 20; TEMP 36.3; O2SAT 95
--- NOTE | 2021-07-14 02:30 | PC.NURSE ---
Sleeping, no signs of distress. 1000NS infusing per IV pump @100ml/hr without signs of infiltration/infection to left AC.
[2021-07-14 04:00] VITALS: BP 118/72; PULSE 64; RESP 18; TEMP 37.3; O2SAT 95
[2021-07-14] MEDS: HYDROmorphone HCL INJ (*CRX) 2 MG/ML VIAL 1 MG IV PUSH ×2 (05:10→09:21)
[2021-07-14] MEDS: SODIUM CHLORIDE 0.9% IV 1,000 ML 100 ML IV CONT (05:13)
[2021-07-14 05:39] LABS: Hematocrit 37.3 % (40.0-54.0); Hemoglobin 12.4 g/dL (14.0-18.0); Immature Platelet Fraction Pct 4.4 % (1.0-7.0); Mean Corpuscular HGB Conc 33.2 g/dL (32.0-36.0); Mean Corpuscular Hemoglobin 29.6 pg (27.0-31.0); Mean Platelet Volume 10.9 fl (8.7-11.0); Platelet Count Result 142 K/mm3 (150-420); Red Blood Count 4.19 M/mm3 (4.70-6.10); Red Cell Distribution Width 12.8 % (11.6-14.4); White Blood Count 8.7 K/mm3 (4.8-10.8)
[2021-07-14 05:55] LABS: Anion Gap 9 mmol/L (8-16); Blood Urea Nitrogen 8 mg/dL (7-18); Calcium 8.1 mg/dL (8.5-10.1); Carbon Dioxide 28 mmol/L (21-32); Chloride 103 mmol/L (98-108); Estimated CRCL calculation 113 ml/min; Estimated Glomerular Filt Rate > 60; Glucose 100 mg/dL (70-99); Lipase 233 U/L (73-393); Osmolality Calculated 288 mOsm/kg (285-295); Potassium 3.6 mmol/L (3.5-5.1); Sodium 140 mmol/L (136-145)
[2021-07-14 08:00] VITALS: BP 134/89; PULSE 70; RESP 14; TEMP 36.7; O2SAT 97
[2021-07-14] MEDS: ASPIRIN 81 MG ENTERIC TABLET PO (09:20)
[2021-07-14] MEDS: ATORVASTATIN 10 MG TABLET 20 MG PO (09:20)
[2021-07-14 09:21] VITALS: PULSE 79
[2021-07-14] MEDS: METOPROLOL TARTRATE 50 MG TAB PO (09:21)
--- NOTE | 2021-07-14 10:53 | PM.DS ---
DS: Admitting Diagnosis Discharge Date 07/14/2021 <Xu JuradoBENSON rios - Last Filed: 07/14/21 14:00> Admitting Diagnosis Pancreatits <Xu Contreras BENSON Mayer - Last Filed: 07/14/21 14:00> DS: Discharge Diagnosis Discharge Diagnosis (1) Pancreatitis: Code(s): K85.90 - Acute pancreatitis without necrosis or infection, unspecified <Xu FontenotBENSON Ford - Last Filed: 07/14/21 14:00> Status: Acute <Xu JuradoROGER riosC - Last Filed: 07/14/21 14:00> Assessment and Plan: NPO, [place] for baseline pain control with Dilaudid for breakthrough pain control, Lipase 1336, will advance diet to clear liquids when pain is under control 07/14/2021 Pt was able to eat breakfast with only a little pain about 30 minutes afterward, tender to palpation, he did well with lunch only having a little pain. Pt feels he is able to return home. Will DC with a script for a couple days of low dose norco. <Xu FontenotBENSON Ford - Last Filed: 07/14/21 14:00> (2) HLD (hyperlipidemia): Code(s): E78.5 - Hyperlipidemia, unspecified <Xu FontenotBENSON Ford - Last Filed: 07/14/21 14:00> Status: Acute <Xu FontenotBENSON Ford - Last Filed: 07/14/21 14:00> Assessment and Plan: Continue Atorvastatin <Xu FontenotBENSON Ford - Last Filed: 07/14/21 14:00> (3) HTN (hypertension): Code(s): I10 - Essential (primary) hypertension <Xu FontenotBENSON Ford - Last Filed: 07/14/21 14:00> Status: Acute <Xu FontenotBENSON Ford - Last Filed: 07/14/21 14:00> Assessment and Plan: Continue Metoprolol, Clonazepam, monitor VS, adjust medications as needed 07/14/2021 BP stable 110-130/70-80, HR 60-70, no changes to medications at this time <Xu FontenotBENSON Ford - Last Filed: 07/14/21 14:00> (4) CAD (coronary artery disease): Code(s): I25.10 - Atherosclerotic heart disease of [place] coronary artery without angina pectoris <Xu FontenotROGER FordC - Last Filed: 07/14/21 14:00> Status: Acute <Xu FontenotBENSON Ford - Last Filed: 07/14/21 14:00> Assessment and Plan: Continue ASA <Xu FontenotKenia Mayer APN-C - Last Filed: 07/14/21 14:00> (5) Depression: Code(s): F32.9 - Major depressive disorder, single episode, unspecified <Xu FontenotBENSON Ford - Last Filed: 07/14/21 14:00> Status: Acute <Xu FontenotBENSON Ford - Last Filed: 07/14/21 14:00> Assessment and Plan: Continue Venlafaxine <Xu FontenotBENSON Ford - Last Filed: 07/14/21 14:00> DS: Summary Hospital Course Hospital Course: Pain improved, tolerating solid food. <BENSON Kwon - Last Filed: 07/14/21 14:00> Time Spent with Patient Time attestation: Total time spent providing and/or coordinating discharge services: < 30 minutes <BENSON Kwon - Last Filed: 07/14/21 14:00> Exam Const: General: cooperative, healthy appearing, comfortable, no acute distress, alert, awake and Physically active <ROGER KwonC - Last Filed: 07/14/21 14:00> Nutritional Appearance: average body habitus <BENSON Kwon - Last Filed: 07/14/21 14:00> Resp: Effort & Inspection: normal respiratory effort <BENSON Kwon - Last Filed: 07/14/21 14:00> Auscultation: clear to auscultation bilaterally <BENSON Kwon - Last Filed: 07/14/21 14:00> Cardio: Rate: regular rate <BENSON Kwon - Last Filed: 07/14/21 14:00> Heart sounds: S1 normal heart sound present and S2 normal heart sound present <BENSON Kwon - Last Filed: 07/14/21 14:00> Psych: Appearance: grossly normal <BENSON Kwon - Last Filed: 07/14/21 14:00> Mental Status: mental status grossly normal <BENSON Kwon - Last Filed: 07/14/21 14:00> Speech and movement: Normal speech and movement present <BENSON Kwon - Last Filed: 07/14/21 14:00> Affect: normal affect <BENSON Kwon - Last Filed: 0
[2021-07-14 12:00] VITALS: BP 140/90; PULSE 78; RESP 16; TEMP 36.6; O2SAT 98
[2021-07-14] MEDS: HYDROcodone/acetaminophen (*CRX) 10-325 MG TABLET 1 TAB PO (13:48)
--- NOTE | 2021-07-14 14:40 | PC.NURSE ---
Pt discharged in stable condition. Script for pain medication sent with pt. Discharge instructions given to pt. Pt verbalized understanding of instructions.
--- NOTE | 2021-07-16 10:35 | PC.NURSE ---
Unable to contact for discharge call back.
== END 2021-07-14 14:25 | disposition home or self-care (01) | DRG 440 ==
LOC: CHSED 23:02 → CHS2ND 07-13 08:44
PROVIDERS: Nurse Practitioner Family; Admitting Provider Emergency Medicine; Emergency Provider Emergency Medicine; PCP Nurse Practitioner; Visit Provider Emergency Medicine
DX: K85.90 Acute pancreatitis without necrosis or infection, unspecified (principal); I25.10 Atherosclerotic heart disease of native coronary artery without angina pectoris; E78.5 Hyperlipidemia, unspecified; I10 Essential (primary) hypertension; Z95.1 Presence of aortocoronary bypass graft; Z87.891 Personal history of nicotine dependence; F17.290 Nicotine dependence, other tobacco product, uncomplicated; F32.9 Major depressive disorder, single episode, unspecified; Z86.16 Personal history of COVID-19
CPT/HCPCS: 36415; 74177; 80048; 80053; 80307; 81003; 83690; 85025; 85027; 85055; 96374; 96375; 99285; A9270; C9113; J1170; J2270; J2405; J7030; J7040; Q9967

== ENCOUNTER 2021-12-13 21:20 | Emergency (ER) | payer OTHER, SELFPAY ==
[2021-12-13 21:34] VITALS: BP 141/98; PULSE 85; RESP 18; TEMP 36.2; O2SAT 96
--- NOTE | 2021-12-13 21:35 | ED.ABDPAIN ---
HPI - Abdominal Pain General Chief Complaint: Abdominal Pain Stated Complaint: pancreatitis Time Seen by Provider: 12/13/21 21:35 Source: patient Mode of arrival: ambulatory History of Present Illness HPI narrative: 42-year-old male ex-smoker, ex with a history of depression hypertension dyslipidemia coronary artery disease status post CABG 3 years ago was diagnosed with pancreatitis in December last year for the 1st time for which he was admitted. Frequently he was admitted again in June of last year for pancreatitis. The patient has had intermittent epigastric pain. Today he presents to the ER with -- epigastric pain which started 10 hours ago. The pain radiates to the back. The pain is rated 10/10. -- No nausea, vomiting or diarrhea. MD elicited complaint: abdominal pain Onset (ago): hour(s) ( 10 hours ago) Pain Consistency: constant Location: other ( radiates to the back.) Pain scale (0-10): 10 Quality: aching Radiation: epigastric Exacerbating factors: nothing Relieving factors: nothing Associated symptoms: denies other symptoms Related Data Allergies Allergy/AdvReac Type Severity Reaction Status Date / Time No Known Allergies Allergy Verified 12/13/21 21:37 Review of Systems Review of Systems: All systems reviewed & are unremarkable except as noted in HPI and below Constitutional: Constitutional: Reports as per HPI and Reports no additional constitutional complaints Eyes: Eyes: Reports as per HPI and Reports no additional eye complaints ENT: Reports system reviewed and no additional complaints, except as documented and Reports as per HPI Cardiovascular: Cardiovascular: Reports as per HPI and Reports no additional cardiovascular complaints Respiratory: Respiratory: Reports as per HPI and Reports no additional respiratory complaints Gastrointestinal: Gastrointestinal: Reports as per HPI and Reports abdominal pain Genitourinary: Genitourinary: Reports no additional male genitourinary complaints Musculoskeletal: Musculoskeletal: Reports no additional musculoskeletal complaints Integumentary/Breasts: Skin/Breast: Reports system reviewed and no additional complaints, except as docu Neurologic: Reports system reviewed and no additional complaints, except as documented Psychiatric: Psychiatric: Reports no additional psychiatric complaints Endocrine: Endocrine: Reports no additional endocrine complaints Hematologic/Lymphatic: Hematologic/Lymphatic: Reports no additional hematologic/lymphatic complaints Allergic/Immunologic: Allergic/Immunologic: Reports no additional allergic/immunologic complaints PMFSH Past Medical History Medical History CAD (coronary artery disease) HLD (hyperlipidemia) HTN (hypertension) Surgical History Surgical History Hx of CABG Family History Family History Mother Acute myocardial infarction Social History Social History Smoking packs per day: 1 Smoking cigarettes per day: 20.0 Years smoked: 28 Smoking pack-years: 28.00 Smoking status: Former smoker Tobacco type: e-cigarettes/vaping Alcohol intake: current Drinks per week: 10 Alcohol use details: Twice a week Substance use: never Substance use type: does not use Gender identity (if verbalized by the patient): Male Sexual Orientation (if Verbalized by the Patient): Straight or Heterosexual Spiritual care concerns: No Exam Const: General: no acute distress ( Patient is in mild distress.) Orientation/consciousness: patient oriented x3 HENMT: Head: normal to inspection Mouth: Yes dry mucous membranes Eyes: Conjunctivae: conjunctivae normal Pupils: Equal, round and reactive pupils present Neck: Neck: normal visual inspection and no lymphadenopathy Chest: C
--- NOTE | 2021-12-13 21:38 | ECG_ITS ---
Measurements Intervals [place] Rate: 99 P: 45 HI: 156 QRS: 43 QRSD: 92 T: 68 QT: 337 QTc: 434 Interpretive Statements SINUS RHYTHM CANNOT RULE OUT SEPTAL INFARCT, AGE INDETERMINATE BORDERLINE ST-T WAVE ABNORMALITY- HIGH LATERAL LEADS BASELINE ARTIFACT- I, II, III, AVR, AVL, AVF, V1-V3 ABNORMAL ECG Electronically Signed On 12-14-2021 8:03:55 BANDMILL OPERATOR by Yassine Duron D.O.
--- NOTE | 2021-12-13 21:41 | PC.NURSE ---
Pt states no longer taking any meds
[2021-12-13 22:03] LABS: Basophils Absolute Auto 0.03 K/mm3 (0.00-0.10); Basophils Percent Auto 0.4 % (0.0-1.0); Eosinophils Absolute Auto 0.18 K/mm3 (0.02-0.50); Eosinophils Percent Auto 2.2 % (1.0-6.0); Hematocrit 41.4 % (40.0-54.0); Hemoglobin 13.9 g/dL (14.0-18.0); Immature Granulocyte Absolute 0.02 K/mm3 (0.00-0.00); Immature Granulocyte Percent A 0.2 % (0.0-0.0); Lymphocytes Absolute Auto 2.25 K/mm3 (1.10-4.50); Lymphocytes Percent Auto 27.5 % (18.0-42.0); Mean Corpuscular HGB Conc 33.6 g/dL (32.0-36.0); Mean Corpuscular Hemoglobin 28.7 pg (27.0-31.0); Mean Corpuscular Volume 85.4 fL (78.0-102.0); Mean Platelet Volume 10.2 fl (8.7-11.0); Monocytes Absolute Auto 0.56 K/mm3 (0.10-0.90); Monocytes Percent Auto 6.9 % (2.0-11.0); Neutrophils Absolute Auto 5.1 K/mm3 (1.7-7.2); Neutrophils Percent Auto 62.8 % (50.0-70.0); Platelet Count Result 211 K/mm3 (150-420); Red Blood Count 4.85 M/mm3 (4.70-6.10); Red Cell Distribution Width 12.4 % (11.6-14.4); White Blood Count 8.2 K/mm3 (4.8-10.8)
[2021-12-13] MEDS: HYDROmorphone HCL INJ (*CRX) 2 MG/ML VIAL 1 MG IV PUSH (22:13)
[2021-12-13] MEDS: ONDANSETRON INJ 4 MG/2 ML VIAL IV PUSH (22:13)
[2021-12-13] MEDS: LACTATED RINGERS 1,000 ML 999 ML IV CONT (22:13)
[2021-12-13 22:24] LABS: Partial Thromboplastin Time 27.9 SEC (23.90-30.70); Prothrombin Time 10.6 Seconds (9.50-12.10)
[2021-12-13 22:26] LABS: Lactic Acid Reflex 0.6 mmol/L (0.4-2.0)
[2021-12-13 22:31] LABS: SARS-CoV-2 Ag Negative (Negative)
[2021-12-13 22:34] LABS: Alanine Aminotransferase 34 U/L (16-63); Albumin Level 3.4 g/dL (3.4-5.0); Alkaline Phosphatase 111 U/L (46-116); Anion Gap 7 mmol/L (8-16); Bilirubin,Total 0.2 mg/dL (0.00-1.00); Blood Urea Nitrogen 13 mg/dL (7-18); Calcium 8.2 mg/dL (8.5-10.1); Carbon Dioxide 28 mmol/L (21-32); Chloride 104 mmol/L (98-108); Estimated CRCL calculation 84 ml/min; Estimated Glomerular Filt Rate > 60; Glucose 126 mg/dL (70-99); Lipase 783 U/L (73-393); Osmolality Calculated 290 mOsm/kg (285-295); Potassium 3.8 mmol/L (3.5-5.1); Sodium 139 mmol/L (136-145); Total Protein 6.8 g/dL (6.4-8.2)
[2021-12-13 22:35] LABS: Triglycerides 654 mg/dL (0-150)
[2021-12-13 22:36] LABS: LDL Cholesterol Direct 86 mg/dL (0-130)
[2021-12-13 22:43] LABS: Aspartate Amino Transferase 21 U/L (15-37)
[2021-12-13 22:48] LABS: Troponin I 5.9 ng/L (0.00-60.4)
[2021-12-13] MEDS: HYDROmorphone HCL INJ (*CRX) 2 MG/ML VIAL SUB-Q (23:11)
[2021-12-13 23:34] VITALS: BP 133/98; PULSE 84; RESP 16; TEMP 36.6; O2SAT 95
== END 2021-12-13 23:36 | disposition home or self-care (01) ==
PROVIDERS: Emergency Provider Internal Medicine Critical Care Medicine; PCP Nurse Practitioner
DX: E78.5 Hyperlipidemia, unspecified (principal); K85.90 Acute pancreatitis without necrosis or infection, unspecified; R10.9 Unspecified abdominal pain; Z20.822 Contact with and (suspected) exposure to COVID-19
CPT/HCPCS: 36415; 80053; 83605; 83690; 83721; 84478; 84484; 85025; 85610; 85730; 87426; 93005; 96361; 96372; 96374; 96375; 99284; C9803; J1170; J2405; J7120

== ENCOUNTER 2022-03-26 11:03 | Outpatient (CLI) | payer OTHER, SELFPAY ==
--- NOTE | 2022-03-26 | EST_ITS ---
Patient Info Name: Iraj Thakur Age: 46 years : 1975 Gender: Male Ht: 68 in Wt: 178 lbs BSA: 1.98 m2 Exam Date: 03/26/2022 12:53 PM Exam Location: [facility] Stress Patient Status: Outpatient Admit Date: 03/26/2022 Staff Ordering Physician: Yassine Duron DO Attending Provider: Yassine Duron DO Exercise Technologist: Gaviota Castro RDCS Exercise Physician: Yassine Duron DO Exam Type: CA stress alan w NM Study Info Indications I25.810 - ATHEROSCLEROSIS OF CORONARY ARTERY BYPASS GRAFT A regadenoson stress test was performed. Summary 1. 1. Negative lexiscan stress test for ischemic ST changes by ECG criteria. 2. 2. Stable hemodynamics throughout the test. 3. 3. Nuclear scan to follow and will be reported separately. Please correlate with it. 4. 4. Patient informed of the above results. Protocol: Lexiscan Stress ECG Details Stage: REST Duration (min): 0 min : 46 sec HR (bpm): 68 SBP (mmHg): 115 DBP (mmHg): 87 Stage: REST Duration (min): 1 min : 4 sec HR (bpm): 65 SBP (mmHg): 115 DBP (mmHg): 87 Stage: STAGE 1 Duration (min): 0 min : 59 sec HR (bpm): 95 SBP (mmHg): 130 DBP (mmHg): 88 Stage: RECOVERY Duration (min): 1 min : 0 sec HR (bpm): 95 SBP (mmHg): 147 DBP (mmHg): 81 Stage: RECOVERY Duration (min): 2 min : 0 sec HR (bpm): 90 SBP (mmHg): 147 DBP (mmHg): 81 Stage: RECOVERY Duration (min): 3 min : 0 sec HR (bpm): 87 SBP (mmHg): 131 DBP (mmHg): 83 Stage: RECOVERY Duration (min): 4 min : 0 sec HR (bpm): 95 SBP (mmHg): 131 DBP (mmHg): 83 Stage: RECOVERY Duration (min): 4 min : 37 sec HR (bpm): 80 SBP (mmHg): 135 DBP (mmHg): 90 Rest HR: 65 bpm Peak HR: 101 bpm Rest Sys BP: 115 mmHg Peak Sys BP: 147 mmHg Max Pred HR: 176 bpm % Max Pred HR: 57 % Target HR: 150 bpm Max RPP: 14,847 bpm*mmHg Termination Reason: Completed protocol Cardiac Symptoms: Shortness of breath Total Time: 1 min : 0 sec Rest Howard BP: 87 mmHg Peak Howard BP: 81 mmHg Total Dose: 0.4 mg Resting ECG Sinus rhythm. Stress ECG No ST changes. Arrhythmias None. Report Signatures
--- NOTE | ~2022-03-26 | NM_ITS ---
EXAMINATION: NM alan stress w perfusion DATE: 03/26/2022 14:15 INDICATION: Atherosclerosis of coronary artery bypass graft TECHNIQUE: Rest images were obtained following intravenous administration of 9 mCi Tc99m tetrofosmin (Myoview). The patient was infused intravenously with Lexiscan (Regadenoson). Then, 28.5 mCi Tc99m te trofosmin (Myoview) was administered intravenously, and stress images were obtained. Data was reconst ructed into short axis and horizontal and vertical long axis SPECT images. Gated SPECT images were al so obtained. COMPARISON: None. FINDINGS: There is a fixed mild to moderate severity perfusion defect involving the mid inferolateral and basilar inferolateral segments consistent with infarct. No reversible ischemia. There is normal left ventricular chamber size, wall motion and ejection fraction. Left ventricular ejection fractio n measures 61%. IMPRESSION: 1. Small mild to moderate severity nonreversible infarct at the mid inferolateral and basilar inferol ateral segments. No reversible ischemia. 2. Left ventricular ejection fraction measuring 61%. Reviewed, dictated and finalized at location B. IMPRESSION: 1. Small mild to moderate severity nonreversible infarct at the mid inferolater al and basilar inferolateral segments. No reversible ischemia. 2. Left ventricular ejection fraction measuring 61%.
--- NOTE | 2022-03-26 11:37 | ECHO_ITS ---
Patient Info Name: Iraj Thakur Age: 46 years : 1975 Gender: Male Ht: 68 in Wt: 178 lbs BSA: 1.98 m2 HR: 59 bpm BP: 125 / 86 mmHg Technical Quality: Good Exam Date: 03/26/2022 11:55 AM Exam Location: [facility] Patient Status: Outpatient Admit Date: 03/26/2022 Staff Ordering Physician: Yassine Duron DO Hotel [employer]obby Concierge: Gaviota Castro RDCS Attending Provider: Yassine Duron DO Referring Physician: Oliverio BERGER; Exam Type: CA echo dop color flow w con Study Info Indications I25.810 - ATHEROSCLEROSIS OF CORONARY ARTERY BYPASS GRAFT Complete two-dimensional, color flow and Doppler transthoracic echocardiogram is performed with contrast to opacify the left ventricle and to improve the deliniation of the left ventricle endocardial borders. Contrast/Agitated Saline Contrast/Ag. Saline: Definity Amount: 3.00 ml Administered By: Gaviota Castro RDCS Existing IV Access: Yes IV Access Condition: patent with no signs of infiltration Summary 1. Left ventricular chamber dimension is normal. 2. Left ventricular systolic function is normal, estimated at 60-65%. 3. The left ventricular diastolic function is normal. 4. E/e' 6 is not elevated. 5. Global longitudinal strain is mildly abnormal at -16.4%. 6. Right ventricular systolic function is moderately reduced and with abnormal TAPSE 1.4 cm. 7. No pulmonary hypertension, estimated pulmonary arterial systolic pressure is 19 mmHg. Left Ventricle E/e' 6 is not elevated. Global longitudinal strain is mildly abnormal at -16.4%. Left ventricular chamber dimension is normal. Left ventricular systolic function is normal, estimated at 60-65%. The left ventricular diastolic function is normal. Right Ventricle Right ventricular systolic function is moderately reduced and with abnormal TAPSE 1.4 cm. Right ventricular chamber dimension is normal. Left Atria Left atrial chamber dimension is normal. Right Atria Right atrial chamber dimension is normal. Aortic Valve The aortic valve is trileaflet. There is no aortic valve stenosis. There is no aortic valve regurgitation. Pulmonic Valve There is no pulmonic regurgitation. Mitral Valve There is no mitral valve stenosis. There is no mitral valve regurgitation. Tricuspid Valve There is no tricuspid valve regurgitation. No pulmonary hypertension, estimated pulmonary arterial systolic pressure is 19 mmHg. Pericardium/Pleural There is no pericardial effusion. Inferior Vena Cava Normal inferior vena cava with >50% collapse upon inspiration consistent with normal right atrial pressure, 5 mmHg. Aorta The aortic root size at the sinus of Valsalva is normal. Left Ventricular Outflow Tract Name Value Normal LVOT 2D LVOT Diameter 2.14 cm LVOT Doppler LVOT Peak Gradient 4 mmHg LVOT Mean Gradient 2 mmHg LVOT VTI 19.56 cm LVOT VTI/AV VTI Ratio 0.86 LVOT Stroke Volume 70.36 ml LVOT CO
[2022-03-26] MEDS: PERFLUTREN LIPID MICROSPHERES 1.5 ML VIAL DILUTED TO 10 ML TOTAL VOLUME IV PUSH (14:20)
== END 2022-03-26 11:04 | disposition home or self-care (01) ==
LOC: ANHCARD 11:08
PROVIDERS: PCP Nurse Practitioner; Visit Provider Internal Medicine Cardiovascular Disease
DX: I25.810 Atherosclerosis of coronary artery bypass graft(s) without angina pectoris (principal)
CPT/HCPCS: 78452; 93017; A9502; C8929; J2785; Q9957

== ENCOUNTER 2022-05-05 12:26 | Outpatient (CLI) | payer OTHER, SELFPAY ==
[2022-05-05 12:47] LABS: Basophils Absolute Auto 0.02 K/mm3 (0.00-0.10); Basophils Percent Auto 0.3 % (0.0-1.0); Eosinophils Absolute Auto 0.25 K/mm3 (0.02-0.50); Eosinophils Percent Auto 3.3 % (1.0-6.0); Hemoglobin 14.7 g/dL (14.0-18.0); Immature Granulocyte Absolute 0.02 K/mm3 (0.00-0.00); Immature Granulocyte Percent A 0.3 % (0.0-0.0); Lymphocytes Absolute Auto 1.92 K/mm3 (1.10-4.50); Lymphocytes Percent Auto 25.4 % (18.0-42.0); Mean Corpuscular HGB Conc 34.2 g/dL (32.0-36.0); Mean Corpuscular Hemoglobin 29.1 pg (27.0-31.0); Monocytes Absolute Auto 0.47 K/mm3 (0.10-0.90); Monocytes Percent Auto 6.2 % (2.0-11.0); Neutrophils Absolute Auto 4.9 K/mm3 (1.7-7.2); Neutrophils Percent Auto 64.5 % (50.0-70.0); Platelet Count Result 217 K/mm3 (150-420); Red Blood Count 5.06 M/mm3 (4.70-6.10); Red Cell Distribution Width 12.5 % (11.6-14.4); White Blood Count 7.6 K/mm3 (4.8-10.8)
[2022-05-05 13:10] LABS: Alanine Aminotransferase 39 U/L (16-63); Alkaline Phosphatase 136 U/L (46-116); Amylase 180 U/L (25-115); Anion Gap 5 mmol/L (8-16); Aspartate Amino Transferase 15 U/L (15-37); Bilirubin,Total 0.6 mg/dL (0.00-1.00); Blood Urea Nitrogen 10 mg/dL (7-18); Calcium 8.7 mg/dL (8.5-10.1); Carbon Dioxide 29 mmol/L (21-32); Chloride 106 mmol/L (98-108); Estimated Glomerular Filt Rate > 60; Glucose 129 mg/dL (70-99); Lipase 696 U/L (73-393); Osmolality Calculated 291 mOsm/kg (285-295); Potassium 3.4 mmol/L (3.5-5.1); Sodium 140 mmol/L (136-145); Total Protein 7.2 g/dL (6.4-8.2)
== END 2022-05-05 12:27 | disposition home or self-care (01) ==
LOC: CHSLAB 12:28
PROVIDERS: PCP Family Medicine; Visit Provider Family Medicine
DX: K85.90 Acute pancreatitis without necrosis or infection, unspecified (principal)
CPT/HCPCS: 36415; 80053; 82150; 83690; 85025

== ENCOUNTER 2022-05-13 15:01 | Outpatient (CLI) | payer OTHER, SELFPAY ==
[2022-05-13 15:25] LABS: Basophils Absolute Auto 0.03 K/mm3 (0.00-0.10); Basophils Percent Auto 0.5 % (0.0-1.0); Eosinophils Absolute Auto 0.07 K/mm3 (0.02-0.50); Eosinophils Percent Auto 1.1 % (1.0-6.0); Hematocrit 38.2 % (40.0-54.0); Hemoglobin 13.2 g/dL (14.0-18.0); Immature Granulocyte Absolute 0.02 K/mm3 (0.00-0.00); Immature Granulocyte Percent A 0.3 % (0.0-0.0); Lymphocytes Absolute Auto 2.05 K/mm3 (1.10-4.50); Lymphocytes Percent Auto 30.9 % (18.0-42.0); Mean Corpuscular HGB Conc 34.6 g/dL (32.0-36.0); Mean Corpuscular Hemoglobin 29.5 pg (27.0-31.0); Mean Corpuscular Volume 85.5 fL (78.0-102.0); Mean Platelet Volume 10.4 fl (8.7-11.0); Monocytes Absolute Auto 0.45 K/mm3 (0.10-0.90); Monocytes Percent Auto 6.8 % (2.0-11.0); Neutrophils Percent Auto 60.4 % (50.0-70.0); Platelet Count Result 222 K/mm3 (150-420); Red Blood Count 4.47 M/mm3 (4.70-6.10); Red Cell Distribution Width 12.9 % (11.6-14.4); White Blood Count 6.6 K/mm3 (4.8-10.8)
[2022-05-13 16:21] LABS: Alanine Aminotransferase 51 U/L (16-63); Albumin Level 4.2 g/dL (3.4-5.0); Alkaline Phosphatase 135 U/L (46-116); Amylase 55 U/L (25-115); Anion Gap 9 mmol/L (8-16); Aspartate Amino Transferase 21 U/L (15-37); Bilirubin,Total 0.4 mg/dL (0.00-1.00); Blood Urea Nitrogen 14 mg/dL (7-18); Calcium 9.1 mg/dL (8.5-10.1); Carbon Dioxide 25 mmol/L (21-32); Chloride 106 mmol/L (98-108); Estimated Glomerular Filt Rate > 60; Glucose 91 mg/dL (70-99); Lipase 135 U/L (73-393); Osmolality Calculated 290 mOsm/kg (285-295); Potassium 4.3 mmol/L (3.5-5.1); Sodium 140 mmol/L (136-145); Total Protein 6.8 g/dL (6.4-8.2)
== END 2022-05-13 15:02 | disposition home or self-care (01) ==
LOC: CHSLAB 15:06
PROVIDERS: PCP Family Medicine; Visit Provider Family Medicine
DX: K85.90 Acute pancreatitis without necrosis or infection, unspecified (principal)
CPT/HCPCS: 36415; 80053; 82150; 83690; 85025

== ENCOUNTER 2022-06-22 13:38 | Outpatient (CLI) | payer OTHER, SELFPAY ==
--- NOTE | ~2022-06-22 | XR_ITS ---
XR_CERV2-3V_CR DATE: 06/22/2022 14:18 INDICATION: Cervical radiculopathy TECHNIQUE: AP, open-mouth, lateral views COMPARISON: None FINDINGS: Mild levoscoliosis of the cervical and upper thoracic spine. C1 and C2 are normally aligned and the odontoid process is intact. No fracture or dislocation or locked facet or prevertebral soft tissue swelling. Cervical interspaces are well preserved. Sternal wire sutures noted. IMPRESSION: Mild levoscoliosis Reviewed, dictated and finalized at Location [facility]. Reviewed, dictated and finalized at location B. IMPRESSION: Mild levoscoliosis
--- NOTE | ~2022-06-22 | XR_ITS ---
XR lumbar spine 2-3V DATE: 06/22/2022 14:19 INDICATION: Low back pain. No known injury. TECHNIQUE: AP, lateral, coned lateral lumbosacral views COMPARISON: 07/08/2009 lumbar spine FINDINGS: There is slight dextroscoliosis. There is mild to moderate degenerative disease at L1 to an d L5-S1. Remaining lumbar interspaces are well preserved. No fracture or bone destruction is detected. The included lower thoracic and lumbar pedicles are inta ct. The sacroiliac joints are normal. IMPRESSION: Bilateral moderate degenerative disc disease at L1 to and L5-S1 Reviewed, dictated and finalized at location B.
--- NOTE | ~2022-06-22 | XR_ITS ---
XR hip RT min 2V DATE: 06/22/2022 14:19 INDICATION: Right hip pain TECHNIQUE: AP and lateral views COMPARISON: 07/12/2021 12/26/2020 CT abdomen pelvis examinations; review of bone windows FINDINGS: There is a chronic patchy sclerotic lesion of the right femoral neck, stable in appearance since 12/30/2020. Most likely benign, possibly fibrous dysplasia, bone infarct or benign chondroid lesion. No pathological fracture is noted. No dislocation. Right hip joint space appears well preserved. No a vascular necrosis of the femoral head. IMPRESSION: Chronic stable likely benign patchy sclerotic lesion of the right femoral neck; some diff erential diagnosis is given above Reviewed, dictated and finalized at location B. IMPRESSION: Chronic stable likely benign patchy sclerotic lesion of the right f emoral neck; some differential diagnosis is given above
--- NOTE | 2022-07-01 15:21 | P.PCNPFT_ITS ---
PFT Procedure Performed PFT Procedure Performed Spirometry with Pre/Post Bronchodilator Plethysmography (Lung Vol) Diffusing Cap (DLCO) Flow Vol Loop PFT Interpretation DOS: 06/23/2022 REQUESTING: Dr Duron REASON FOR TESTING: Dyspnea PULMONARY FUNCTION TESTS Results are reliable and reproducible. Spirometry: Pre-bronchodilator FEV1 is 3.81 L, 107% predicted. Pre- bronchodilator FVC is 4.72 L, 106% predicted. The FEV1:FVC is 81%, normal. After bronchodilator, the FEV1 increases by 5%, FVC increases 4%, both are nonstatistically significant. These are normal values. Lung volumes: TLC 109%, 7.0 L. RV is 115%, 2.27 L. RV/TLC is 33%, normal. FRC 88%, 3.0 L. Normal airway resistance. Normal lung volumes. Diffusion: DLCO is 90% predicted, 23.8 mL/min/mmHg. DLCO/VA is 99%, 4.15 mL/min/mmHg/L. Both are normal results. Flow volume loop: There is mild irregularity in the inspiratory limb which is non-specific. IMPRESSION: Normal spirometry, lung volumes and diffusion. No significant response to bronchodilator. Lack of response to bronchodilator should not preclude use if clinically indicated. Ирина Almonte MD
== END 2022-06-22 13:39 | disposition home or self-care (01) ==
LOC: CHSIMG 13:42
PROVIDERS: PCP Family Medicine; Visit Provider Nurse Practitioner
DX: M54.50 Low back pain, unspecified (principal); M25.551 Pain in right hip; M54.12 Radiculopathy, cervical region
CPT/HCPCS: 72040; 72100; 73502

== ENCOUNTER 2022-06-23 10:34 | Outpatient (CLI) | payer OTHER, SELFPAY ==
--- NOTE | 2022-07-01 15:28 | PFT_ITS ---
This report was recreated on July 09, 2022. Original report was signed by Dr. Ирина Almonte on July 01, 2022 at 1528. PFT Procedure Performed PFT Procedure Performed Spirometry with Pre/Post Bronchodilator Plethysmography (Lung Vol) Diffusing Cap (DLCO) Flow Vol Loop PFT Interpretation DOS: 06/23/2022 REQUESTING: Dr Duron REASON FOR TESTING: Dyspnea PULMONARY FUNCTION TESTS Results are reliable and reproducible. Spirometry: Pre-bronchodilator FEV1 is 3.81 L, 107% predicted. Pre- bronchodilator FVC is 4.72 L, 106% predicted. The FEV1:FVC is 81%, normal. After bronchodilator, the FEV1 increases by 5%, FVC increases 4%, both are nonstatistically significant. These are normal values. Lung volumes: TLC 109%, 7.0 L. RV is 115%, 2.27 L. RV/TLC is 33%, normal. FRC 88%, 3.0 L. Normal airway resistance. Normal lung volumes. Diffusion: DLCO is 90% predicted, 23.8 mL/min/mmHg. DLCO/VA is 99%, 4.15 mL/min/mmHg/L. Both are normal results. Flow volume loop: There is mild irregularity in the inspiratory limb which is non-specific. IMPRESSION: Normal spirometry, lung volumes and diffusion. No significant response to bronchodilator. Lack of response to bronchodilator should not preclude use if clinically indicated. Ирина Almonte MD This dictation may have been done utilizing a voice recognition system. Attempts have been made to correct errors. However, there may be uncorrected grammatical, spelling, and recognition errors present. Report Initialized date/time: Ирина Almonte MD 07/01/22 1528 Electronically signed by: Ирина Almonte MD 07/01/[address] [facility]
== END 2022-06-23 10:35 | disposition home or self-care (01) ==
LOC: CHSTREATRM 10:37
PROVIDERS: PCP Family Medicine; Visit Provider Internal Medicine Cardiovascular Disease
DX: R06.00 Dyspnea, unspecified (principal)
CPT/HCPCS: 94060; 94726; 94729

== ENCOUNTER 2022-07-05 13:40 | Outpatient (CLI) | payer OTHER, SELFPAY ==
[2022-07-05 14:07] LABS: Cholesterol 167 mg/dL (0-200); HDL Direct 42 mg/dL (40-60); LDL Cholesterol Calculated 70 mg/dL (<130); Triglycerides 274 mg/dL (0-150)
== END 2022-07-05 13:41 | disposition home or self-care (01) ==
LOC: CHSLAB 13:42
PROVIDERS: PCP Family Medicine; Visit Provider Internal Medicine Cardiovascular Disease
DX: E78.2 Mixed hyperlipidemia (principal)
CPT/HCPCS: 36415; 80061

== ENCOUNTER 2022-07-20 09:46 | Outpatient (CLI) | payer OTHER, SELFPAY ==
[2022-07-20 10:18] LABS: Potassium 4.3 mmol/L (3.5-5.1)
== END 2022-07-20 09:47 | disposition home or self-care (01) ==
LOC: CHSLAB 09:51
PROVIDERS: PCP Family Medicine
DX: K52.9 Noninfective gastroenteritis and colitis, unspecified (principal)
CPT/HCPCS: 36415; 84132

== ENCOUNTER 2022-12-04 12:35 | Outpatient (CLI) | payer OTHER, SELFPAY ==
--- NOTE | ~2022-12-04 | MR_ITS ---
MRI of the brain Clinical History: Headache, weakness, paresthesia Technique: Axial and sagittal T1-weighted images were acquired. These were followed by axial T2-weigh antonio, diffusion weighted, gradient, and FLAIR images. Following intravenous administration of 17 cc Mu ltiHance gadolinium, T1-weighted fat-sat imaging was performed in the axial, coronal, and sagittal pl anes. Findings: No abnormal signal seen in the brain parenchyma. 7 mm pineal gland cyst noted. No acute inf arct, intracranial hemorrhage, or mass lesion seen otherwise. Ventricles and subarachnoid spaces are unremarkable. Orbits are unremarkable. There is bilateral maxi llary and ethmoid sinus disease. Remaining paranasal sinuses and mastoid air cells are clear. Major i ntracranial flow voids are intact. Sagittal midline structures are intact. No abnormal postcontrast enhancement. IMPRESSION: 7 mm pineal gland cyst, otherwise unremarkable exam. Reviewed, dictated and finalized at [facility]. 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
== END 2022-12-04 12:36 | disposition home or self-care (01) ==
PROVIDERS: PCP Family Medicine
DX: R20.0 Anesthesia of skin (principal); R51.9 Headache, unspecified; M62.81 Muscle weakness (generalized); M54.9 Dorsalgia, unspecified; M54.2 Cervicalgia; R19.8 Other specified symptoms and signs involving the digestive system and abdomen; R41.841 Cognitive communication deficit; R53.83 Other fatigue
CPT/HCPCS: 70553; A9577

== ENCOUNTER → 2023-01-06 14:48 | Outpatient (CLI) | payer OTHER, SELFPAY ==
--- NOTE | ~2023-01-06 | MR_ITS ---
EXAMINATION: MR cervical spine wo con DATE: 01/06/2023 15:41 INDICATION: Cervical myelopathy TECHNIQUE: Magnetic resonance imaging (MRI) of the cervical spine was performed without intravenous c ontrast. Sequences included sagittal T2-weighted FSE, sagittal T2-weighted FS FSE, sagittal fluid sen sitive FSE STIR, sagittal T1-weighted FSE, axial MERGE and axial T2-weighted FSE. COMPARISON: Cervical spine radiographs dated 06/22/2022 FINDINGS: Bone alignment is normal. Vertebral body heights are normal. Bone marrow signal intensity is normal . Intervertebral disc heights are normal. Cord signal intensity is normal. Visualized cervical soft t issues are unremarkable. The following disc levels are specifically discussed: C2-C3: The disc does not extend beyond the endplate margin. There is no uncovertebral joint osteoarth ritis. There is moderate bilateral facet joint osteoarthritis. There is mild right neural foraminal s tenosis. There is no central canal stenosis. C3-C4: The disc does not extend beyond the endplate margin. There is no uncovertebral joint osteoarth ritis. There is moderate bilateral facet joint osteoarthritis. There is no neural foraminal stenosis. There is no central canal stenosis. C4-C5: The disc does not extend beyond the endplate margin. There is no uncovertebral joint osteoarth ritis. There is mild left and moderate right facet joint osteoarthritis. There is mild right neural f oraminal stenosis. There is no central canal stenosis. C5-C6: The disc does not extend beyond the endplate margins. There is no uncovertebral joint osteoart hritis. There is moderate bilateral facet joint osteoarthritis. There is mild left neural foraminal s tenosis. There is no central canal stenosis. C6-C7: Disc is mildly bulging. There is moderate bilateral uncovertebral joint osteoarthritis. There is mild bilateral facet joint osteoarthritis. There is mild right and moderate left neural foraminal stenosis. There is mild central canal stenosis. C7-T1: The disc does not extend beyond the endplate margin. There is no uncovertebral joint osteoarth ritis. There is severe bilateral facet joint osteoarthritis. There is mild right neural foraminal debora nosis. There is no central canal stenosis. IMPRESSION: 1. Mild cervical spondylosis. Reviewed, dictated and finalized at location L.
== END ==
PROVIDERS: PCP Family Medicine; Visit Provider Neurological Surgery
DX: G95.9 Disease of spinal cord, unspecified (principal); M47.812 Spondylosis without myelopathy or radiculopathy, cervical region
CPT/HCPCS: 72141

== ENCOUNTER 2023-05-25 15:14 | Outpatient (CLI) | payer OTHER, SELFPAY ==
[2023-05-25 15:27] LABS: Basophils Absolute Auto 0.05 K/mm3 (0.00-0.10); Basophils Percent Auto 0.5 % (0.0-1.0); Eosinophils Absolute Auto 0.24 K/mm3 (0.02-0.50); Eosinophils Percent Auto 2.4 % (1.0-6.0); Hematocrit 44.2 % (40.0-54.0); Hemoglobin 15.1 g/dL (14.0-18.0); Immature Granulocyte Absolute 0.05 K/mm3 (0.00-0.00); Immature Granulocyte Percent A 0.5 % (0.0-0.0); Lymphocytes Absolute Auto 2.13 K/mm3 (1.10-4.50); Lymphocytes Percent Auto 21.1 % (18.0-42.0); Mean Corpuscular HGB Conc 34.2 g/dL (32.0-36.0); Mean Corpuscular Hemoglobin 29.5 pg (27.0-31.0); Mean Corpuscular Volume 86.3 fL (78.0-102.0); Mean Platelet Volume 10.2 fl (8.7-11.0); Monocytes Absolute Auto 0.75 K/mm3 (0.10-0.90); Monocytes Percent Auto 7.4 % (2.0-11.0); Neutrophils Absolute Auto 6.9 K/mm3 (1.7-7.2); Neutrophils Percent Auto 68.1 % (50.0-70.0); Platelet Count Result 215 K/mm3 (150-420); Red Blood Count 5.12 M/mm3 (4.70-6.10); Red Cell Distribution Width 12.1 % (11.6-14.4); White Blood Count 10.1 K/mm3 (4.8-10.8)
[2023-05-25 16:02] LABS: Alanine Aminotransferase 41 U/L (16-63); Albumin Level 3.8 g/dL (3.4-5.0); Alkaline Phosphatase 109 U/L (46-116); Amylase 529 U/L (25-115); Anion Gap 8 mmol/L (8-16); Aspartate Amino Transferase 14 U/L (15-37); Bilirubin,Total 0.5 mg/dL (0.00-1.00); Blood Urea Nitrogen 12 mg/dL (7-18); Calcium 8.7 mg/dL (8.5-10.1); Carbon Dioxide 30 mmol/L (21-32); Chloride 106 mmol/L (98-108); Cholesterol 178 mg/dL (0-200); Estimated Glomerular Filt Rate > 60; Glucose 109 mg/dL (70-99); HDL Direct 43 mg/dL (40-60); LDL Cholesterol Calculated 70 mg/dL (<130); Osmolality Calculated 298 mOsm/kg (285-295); Potassium 4.3 mmol/L (3.5-5.1); Sodium 144 mmol/L (136-145); Total Protein 6.5 g/dL (6.4-8.2); Triglycerides 323 mg/dL (0-150)
[2023-05-25 16:25] LABS: Lipase 1904 U/L (16-77)
== END 2023-05-25 15:15 | disposition home or self-care (01) ==
LOC: CHSLAB 15:17
PROVIDERS: PCP Family Medicine; Visit Provider Nurse Practitioner
DX: K86.1 Other chronic pancreatitis (principal); E78.2 Mixed hyperlipidemia
CPT/HCPCS: 36415; 80053; 80061; 82150; 83690; 85025

== ENCOUNTER 2024-06-28 09:16 | Emergency (ER) | payer OTHER, SELFPAY ==
--- NOTE | ~2024-06-28 | CT_ITS ---
Noncontrast CT scan of the cervical spine Technique: Multiple contiguous axial [address] images of the cervical spine were obtained and rec onstructed in 2D sagittal and coronal planes on the acquisition scanner. Dose reduction technique was used on this scan by utilizing automated exposure control, adjustment of the mA and/or kV according to patient size. The dose-length product (DLP) was 374.22 mGy-cm. Clinical History: Pain Findings: No fractures or dislocations. Possible minimal left neural foraminal narrowing at C6-C7. T he intervertebral disc spaces are preserved. No prevertebral soft tissue swelling. Impression: No fracture or subluxation of the cervical spine. Reviewed, dictated and finalized at location . Impression: No fracture or subluxation of the cervical spine.
--- NOTE | ~2024-06-28 | CT_ITS ---
Non-contrast Head CT History: Status post fall Technique: Axial non-contrast imaging of the brain was performed. Dose reduction technique was used on this scan by utilizing automated exposure control and iterative reconstruction technique. The dose -length product (DLP) was 605.33 mGy-cm. Findings: There is no evidence of intracranial hemorrhage, mass lesion, or acute infarct. Brain par enchyma appears normal. The ventricles and subarachnoid spaces are normal in size. The calvarium ap pears normal. Large right maxillary retention cyst or polyp present. Small left maxillary retention c yst or polyp present. The remaining visualized paranasal sinuses and mastoid air cells are clear. Impression: No acute intracranial abnormality seen. Reviewed, dictated and finalized at [facility]. Impression: No acute intracranial abnormality seen.
--- NOTE | ~2024-06-28 | XR_ITS ---
EXAMINATION: XR shoulder RT min 2V DATE: 06/28/2024 10:03 INDICATION: Posterior right shoulder pain radiating down the arm post fall TECHNIQUE: AP internally and externally rotated, AP oblique externally rotated and transscapular Y vi ews of the right shoulder were obtained. COMPARISON: None FINDINGS: Normal alignment. Subtle tiny calcific densities along the lesser tuberosity without evident donor si te which would be most consistent with subscapularis calcific tendinitis. No fracture.Mild glenohumer al osteoarthritis. Moderate acromioclavicular osteoarthritis. Visualized portion of the lungs are lb ar. Median sternotomy wires and mediastinal surgical clips are seen, likely from prior coronary arter y bypass grafting. Soft tissues are otherwise unremarkable. IMPRESSION: Mild right glenohumeral and moderate acromioclavicular osteoarthritis. No acute osseous adenopathy. 2. Subtle tiny calcific densities along the lesser tuberosity suggestive of subscapularis calcific te ndinitis. Reviewed, dictated and finalized at location A. IMPRESSION: Mild right glenohumeral and moderate acromioclavicular osteoarthritis. No acute osseous adenopathy. 2. Subtle tiny calcific densities along the lesser tuberosity suggestive of sub scapularis calcific tendinitis.
--- NOTE | ~2024-06-28 | XR_ITS ---
EXAMINATION: XR hand RT min 3V DATE: 06/28/2024 10:02 INDICATION: Bruising and swelling at the fifth metacarpal post fall TECHNIQUE: Posteroanterior, oblique and lateral views of the right hand were obtained. COMPARISON: None. FINDINGS: Old fifth metacarpal diaphyseal fracture which is healed with some volar angulation. Alignment is oth erwise normal. No acute fractures. Mild polyarticular osteoarthritis at the distal radioulnar, trisca phe and multiple interphalangeal joints. There is soft tissue swelling about the ulnar side of the german nd. IMPRESSION: 1. No acute osseous abnormality. Reviewed, dictated and finalized at location A.
[2024-06-28 09:33] VITALS: BP 137/110; PULSE 90; RESP 16; TEMP 36.6; O2SAT 100
--- NOTE | 2024-06-28 09:34 | ED.FALL ---
HPI - Fall General Chief Complaint: Fall <Reagan Toro PA-C - Last Filed: 06/28/24 14:50> Stated Complaint: fall 8 foot, R arm pain <Reagan Toro PA-C - Last Filed: 06/28/24 14:50> Time Seen by Provider: 06/28/24 09:34 <Reagan Toro PA-C - Last Filed: 06/28/24 14:50> Focused HPI: this is a 48-year-old male who presents to the ED for chief complaint of follow-up work today. 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 States that he fell through a construction material and landed on the floor 8 ft below. reports mild pain to the neck, right shoulder, right wrist. States he was able to ambulate after the fall. Denies LOC. Denies any further sites of pain or injury. GENERAL: Well-appearing, well-nourished, and in no acute distress. HEAD: Normocephalic, atraumatic. CHEST: Clear to auscultation. No respiratory distress. HEART: Regular rate and rhythm. MSK: R Hand swelling and tenderness along the 5th metacarpal. Bruising present as well. No tenderness to the wrist, elbow. Range of motion is full of the wrist and elbow. Right shoulder active range of motion slightly reduced due to pain. No deformities noted. Neurovascularly intact distally. No midline spinal tenderness NEURO: Alert and oriented x3. Patient screened in triage and initial orders placed. Additional care and disposition to be based upon diagnostic testing and treatment. <Reagan Toro PA-C - Last Filed: 06/28/24 14:50> Related Data Home Medications: Home Medications Medication Instructions Recorded Confirmed aspirin 325 mg tablet (Luis 325 mg PO DAILY 02/26/22 12/27/22 Aspirin) atorvastatin 20 mg tablet 80 mg PO DAILY 02/26/22 12/27/22 trazodone 50 mg tablet 50 mg PO QHS PRN 02/26/22 12/27/22 tamsulosin 0.4 mg capsule 0.4 mg PO DAILY 07/01/22 12/27/22 amitriptyline 25 mg tablet 25 mg PO QHS 12/27/22 12/27/22 buspirone 5 mg tablet 5 mg PO BID 12/27/22 12/27/22 metoprolol tartrate 50 mg tablet 25 mg PO BID 12/27/22 12/27/22 pantoprazole 40 mg tablet,delayed 40 mg PO QAM 12/27/22 12/27/22 release <Reagan Toro PA-C - Last Filed: 06/28/24 14:50> Allergies/Adverse Reactions: Allergies Allergy/AdvReac Type Severity Reaction Status Date / Time No Known Allergies Allergy Verified 12/27/22 14:41 <Reagan Toro PA-C - Last Filed: 06/28/24 14:50> Review of Systems Review of Systems: All systems reviewed & are unremarkable except as noted in HPI and below <Bisi Fraser MD - Last Filed: 06/28/24 10:41> [facility] Past Medical History Medical History: Medical History CAD (coronary artery disease) HLD (hyperlipidemia) HTN (hypertension) <Reagan Toro PA-C - Last Filed: 06/28/24 14:50> Surgical History Surgical History: Surgical History Hx of CABG <Reagan Toro PA-C - Last Filed: 06/28/24 14:50> Family History Family History: Family History Mother Acute myocardial infarction <Reagan Toro PA-C - Last Filed: 06/28/24 14:50> Social History Social History: Social History Smoking packs per day: 1 Smoking cigarettes per day: 20.0 Years smoked: 28 Smoking pack-years: 28.00 Smoking status: Former smoker Tobacco type: e-cigarettes/vaping Alcohol intake: current Drinks per week: 10 Alcohol use details: Twice a week Substance use: never Substance use type: does not use Living arrangements: with family Gender identity (if verbalized by the patient): Male Sexual Orientation (if Verbalized by the Patient): Straight or Heterosexual Spiritual care concerns: No <Reagan Toro PA-C - Last Filed: 06/28/24 14:50> Exam Narrative: EXAMINATION OF ORGAN SYSTEMS/BODY AREAS: [place]
== END 2024-06-28 10:43 | disposition home or self-care (01) ==
LOC: ANHED 10:38
PROVIDERS: Emergency Provider Emergency Medicine; PCP Family Medicine
DX: S60.221A Contusion of right hand, initial encounter (principal); W17.89XA Other fall from one level to another, initial encounter; I25.10 Atherosclerotic heart disease of native coronary artery without angina pectoris; E78.5 Hyperlipidemia, unspecified; I10 Essential (primary) hypertension; Z95.1 Presence of aortocoronary bypass graft; Z87.891 Personal history of nicotine dependence
CPT/HCPCS: 70450; 72125; 73030; 73130; 99284

== ENCOUNTER 2025-02-27 13:19 | Emergency (ER) | payer OTHER, SELFPAY ==
[2025-02-27] VITALS (24 sets, daily range): BP systolic 101–138; BP diastolic 70–88; PULSE 70–99; RESP 12–19; TEMP 36.4–36.8; O2SAT 93–100
--- NOTE | ~2025-02-27 | XR_ITS ---
XR chest 1V portable Ordering provider: Rajeev Parrish MD History: 49 years Male with . sudden dizziness with headache, tiredness . Comparison: None. FINDINGS: MEDIASTINUM: The cardiac silhouette is not enlarged. Postoperative changes in the mediastinum. LUNGS: No infiltrates, effusions or pneumothorax. OTHER: No free air under the diaphragm. IMPRESSION: No acute cardiopulmonary pathology. Reviewed, dictated and finalized at location A.
--- NOTE | ~2025-02-27 | CT_ITS ---
EXAMINATION: CT brain wo [facility] DATE: 02/27/2025 14:23 INDICATION: Sudden dizziness with headache TECHNIQUE: Computed tomography (CT) of the head was performed without intravenous contrast. Sagittal and coronal reconstructions were performed. The mA was adjusted according to patient size. Iterative reconstruction technique was employed. The dose-length product was 605.33 mGy-cm. COMPARISON: head CT dated 06/28/2024 FINDINGS: No acute intracranial hemorrhage, acute infarction or abnormal extra axial fluid collection. Ventricl es are normal and symmetric. No mass/mass effect. Prominent mucous retention cyst in the right maxill phillip sinus and moderate mucosal thickening the bilateral ethmoid and sphenoid sinuses which does not a ppear significantly changed since the prior study. The orbits and mastoid air cells are normal. IMPRESSION: 1. No acute intracranial process. 2. Chronic sinus disease. Reviewed, dictated and finalized at location A.
[2025-02-27 13:26] LABS: Glucose Point of Care 79 mg/dl (65-105)
--- OUTSIDE RECORDS SUMMARY | 2025-02-27 13:29 | XMS_ITS | Clinical Summary ---
Author Organization [facility] Address [address] [place] [address] Care Team Providers Care Landcare Officer Name Role Phone Alex Tapia MD Primary Care Provider [phone] Allergies No known active allergies Medications aspirin EC 81 MG tablet Take 81 mg by mouth daily. Active atorvastatin (LIPITOR) 80 MG tablet Take 80 mg by mouth daily. 2 Active gabapentin (NEURONTIN) 300 MG capsule 3 (three) times daily. 2 Active DULoxetine (CYMBALTA) 30 MG capsule Take 30 mg by mouth 2 (two) times daily. Active traZODone (DESYREL) 50 MG tablet nightly at bedtime. 2 Active metoprolol tartrate (LOPRESSOR) 50 MG tablet Take 50 mg by mouth 2 (two) times daily. 2 Active tamsulosin (FLOMAX) 0.4 MG Cap Take 0.4 mg by mouth daily. Active ondansetron (ZOFRAN-ODT) 4 MG disintegrating tablet Take 1 tablet (4 mg total) by mouth every 8 (eight) hours as needed for Nausea. 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 Gender Identity Not on file Sexual Orientation Not on file Last Filed Vital Signs Vital Sign Reading Time Taken Comments Blood Pressure 139/85 09/20/2022 12:30 AM BLOCK SPLITTER OPERATOR Pulse 62 09/20/2022 12:17 AM BLOCK SPLITTER OPERATOR Temperature 36.2 C (97.2 F) 09/20/2022 12:17 AM BLOCK SPLITTER OPERATOR Respiratory Rate 16 09/20/2022 12:17 AM BLOCK SPLITTER OPERATOR Oxygen Saturation 98% 09/20/2022 12:45 AM BLOCK SPLITTER OPERATOR Inhaled Oxygen Concentration - - Weight 83.9 kg (185 lb) 09/19/2022 9:09 PM BLOCK SPLITTER OPERATOR Height 172.7 cm (5' 8 ) 09/19/2022 9:09 PM BLOCK SPLITTER OPERATOR Body Mass Index 28.13 09/19/2022 9:09 PM BLOCK SPLITTER OPERATOR Plan of Treatment Health Maintenance Due Date Last Done Comments ASCVD LDL 1977 ASCVD Statin 1977 Colorectal Cancer Screening Colonoscopy (10 Years) 1977 Annual Physical 1980 DTaP, Tdap and Td Vaccines (5 - Tdap) 07/09/1992 07/08/1992, 04/15/1983, 05/04/1978, Additional history exists Hepatitis C 1995 Hepatitis B Vaccines (1 of 3 - 19+ 3-dose series) 1996 Pneumococcal Vaccine: Pediatrics (0 to 5 Years) and At-Risk Patients (6 to 49 Years) (1 of 2 - PCV) 1996 COVID-19 Vaccine ( - season) 2024 Meningococcal B Vaccine Aged Out No l onger eligible based on patient's age to complete this topic Meningococcal Vaccine Aged Out No randy wei eligible based on patient's age to complete this topic RSV Immunizations Under 20 Months Aged Out No longer eligible based on patient's age to complete this topic Insurance Care Teams Landcare Officer Relationship Specialty Start Date End Date Alex Tapia MD PCP - General FAMILY PRACTICE 09/19/22
--- OUTSIDE RECORDS SUMMARY | 2025-02-27 13:29 | XMS_ITS | Encounter Summary ---
Author Organization [facility] Address [address] [place] [address] Phone Care Team Providers Care Mechanical Energy Engineer Name Role Phone Alex Tapia MD Primary Care Provider [phone] Ovidio Pierre MD Unavailable [phone] Reason for Visit * Reason Comments Medication Refill Encounter Details Date Type Department Care Team (Late st Contact Info) Description 02/24/2023 Refill 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 No / Unsure 02/11/2023 9:07 AM CDT documented as of this encounter Plan of Treatment Not on file documented as of this encounter Visit Diagnoses Not on filedocumented in this encounter Care Teams Mechanical Energy Engineer Relationship Specialty [place] [id number] [facility] [address] [place] [address] PCP - General Family Medicine 02/11/23 Ovidio Pierre MD [address] [place] [address] Consulting Physician Neurology 02/11/23 documented as of this encounter
--- OUTSIDE RECORDS SUMMARY | 2025-02-27 13:29 | XMS_ITS | Clinical Summary ---
Author Organization [facility] Administrative Offices Address [address] [place] [address] Care Team Providers Care Attendant Lodging Facilities Name Role Phone Unavailable Primary Care Provider Unavailabl e Allergies No known active allergies Medications ibuprofen (MOTRIN) 800 mg tabletIndication s:Chest wall pain Take 1 Tab by mouth every 8 hours as needed for Pain, Mild. 30 Tab 0 05/31/2014 Active Active Problems Problem Noted Date Diagnosed Date Tobacco use 05/31/2014 Back pain 05/31/2014 Family History Medical History Relation Name Comments Hypertension Father Diabetes Mother Heart Disease Mother Heart Disease Paternal Grandfather Relation Name Status Comments Father Alive Mother Paternal Grandfather Social History Tobacco Use Types Packs/Day Years Used Date Smoking Tobacco: Every Day Smokeless Tobacco: Never Alcohol Use Standard Drinks/Week Comments No 0 (1 standard drink = 0.6 oz pur e alcohol) Sex and Gender Information Value Date Recorded Sex Assigned at Not on file 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 Gender Identity Not on file Sexual Orientation Not on file Last Filed Vital Signs Vital Sign Reading Time Taken Comments Blood Pressure 145/89 05/31/2014 3:23 PM CDT Pulse 60 05/31/2014 3:23 PM CDT Temperature 36.8 C (98.3 F) 05/31/2014 3:23 PM CDT Respiratory Rate 12 05/31/2014 3:23 PM CDT Oxygen Saturation 100% 05/31/2014 3:23 PM CDT Inhaled Oxygen Concentration - - Weight 79.4 kg (175 lb) 05/31/2014 3:23 PM CDT Height 172.7 cm (5' 8 ) 05/31/2014 3:23 PM CDT Body Mass Index 26.61 05/31/2014 3:23 PM CDT Plan of Treatment Health Maintenance Due Date Last Done Comments DTAP/TDAP/TD VACCINES (1 - Tdap) 1996 HEPATITIS B VACCINES (1 of 3 - 19+ 3-dose series) 05/1996 COLORECTAL SCREENING 2022 Colorectal Cancer Screening 2022 FIT-DNA Q 3 years 2022 FIT/FOBT Q 1 year 2022 Flex Sig/CT Colonography Q 5 years 2022 INFLUENZA VACCINE (#1) 2024 Insurance [facility] [id number]
--- OUTSIDE RECORDS SUMMARY | 2025-02-27 13:29 | XMS_ITS | Clinical Summary ---
Author Organization [facility] Sylvia Sage Address [address] [place] [address] Care Team Providers Care Tile Layer Supervisor Name Role Phone Mendy Fields MD Primary Care Provi rodrigo Allergies No known active allergies Medications metoprolol XL (TOPROL-XL) 50 mg 24 hr tablet Take 1 tablet (50 mg total) by mouth daily 30 tablet 5 9 Active acetaminophen (TYLENOL) 500 mg tabletIndications:B ack Pain Take 1-2 tablets (500-1,000 mg total) by mouth every 6 (six) hours as needed for pain (1 tablet for mild to moderate pain. 2 tablets for severe pain) 30 tablet 9 Active ibuprofen (ADVIL,MOTRIN) 600 mg tablet Take 1 tablet (600 mg total) by mouth every 6 (six) hours as needed for pain 30 tablet 9 Active aspirin 81 mg enteric coated tablet Take 1 tablet (81 mg total) by mouth daily 90 tablet 3 0 Active atorvastatin (LIPITOR) 80 mg tabletIndications:M ixed hyperlipidemia TAKE 1 TABLET BY MOUTH EVERY DAY AT NIGHT 90 tablet 3 0 Active cyclobenzaprine (FLEXERIL) 10 mg tablet TAKE ONE TABLET BY MOUTH NEEDED IN THE EVENING FOR MUSCLE SPASM 30 tablet 0 Active Active Problems Problem Noted Date Diagnosed Date Precordial pain 10/23/2019 Acute neck pain 03/14/2019 Aftercare following surgery of the circulatory s ystem 02/21/2019 S/P CABG (coronary artery bypass graft) 02/22/20 19 Abnormal stress electrocardiogram test using tong admill 01/16/2019 Assessment & Plan (01/16/2019 11:39 AM CDT): Because of complaints of chest pain, the patient underwent an exercise treadmill test on January 05, 2019. He developed chest pain while exercising on the treadmill in did have EKG changes including anterior lateral ST depression in diffuse T-wave inversion in recovery that normalized after 5 min. Due to his cardiac risk factors (tobacco use, family history of premature coronary artery disease) and his abnormal treadmill stress test, we have recommended a cardiac catheterization for definitive evaluation of his coronary anatomy. The procedure was explained in detail to the patient and he wishes to proceed. We have ordered pre testing labs to include BMP, CBC, and lipid panel. He will be scheduled for the cardiac catheterization procedure tomorrow. We have started him on low-dose beta-roshni and recommended he take a daily low- dose 81 mg aspirin. Abnormal EKG 01/16/2019 Overview (01/16/2019): Added automatically from request for surgery [id number] Abnormal cardiovascular stress test 01/16/2019 Overview (01/16/2019): Added automatically from request for surgery [id number] Chronic thoracic back pain 05/07/2016 Overview (01/28/2017): Chronic bilateral thoracic back pain Chronic low back pain 05/07/2016 Overview (01/28/2017): Chronic bilateral low back pain with right-sided sciatica Tobacco use 05/31/2014 Assessment & Plan (01/16/2019 11:37 AM CDT): The patient was strongly encouraged to work towards total smoking cessation. We discussed with him that this is a controllable risk factor that can affect his cardiovascular health. Mixed hyperlipidemia Assessment & Plan (04/23/2020 2:07 PM CDT): On high intensity statin therapy Assessment & Plan (03/12/2020 2:44 PM CDT): Continue high-intensity statin therapy Assessment & Plan (07/12/2019 10:39 AM CDT): Continue high-intensity statin therapy Assessment & Plan (03/13/2019 11:01 AM CDT): Continue statin therapy. He has significantly elevated triglycerides. LDL per lab work in December 2018 was 122. Will repeat a lipid panel and hepatic panel to evaluate response to medical therapy. Multiple thyroid nodules Vitamin D deficiency Coronary artery disease of n ative artery of [place] heart with stable angina pectoris Assessment & Plan (04/23/2020 2:07 PM CDT): Stable on current medical therapy which includes a beta-roshni. Assessment & Plan (03/12/2020 2:44 PM CDT): Status post CABG. Chest pain is atypical and not suggestive of angina and probably more reflective of musculoskeletal chest pain. Assessment & Plan (07/12/2019 10:39 AM CDT): Patient chest pain that began approximately 2 weeks ago sounds musculoskeletal in origin. I have recommended a chest x-ray to make sure that his sternum is stable which the patient has declined. His 2nd type of chest discomfort is somewhat concerning for angina. His symptoms have not reoccurred and he is on a beta- roshni. I have instructed the patient to follow the symptoms and if they should recur that he needs to report them immediately an ischemic workup would be recommended. Assessment & Plan (03/13/2019 10:58 AM CDT): Status post CABG x4 with use of both internal mammary arteries. The patient continues to have moderate musculoskeletal pain since surgery. I encouraged him to discuss his pain with his primary care doctor, he may benefit from seeing a house painter. I did encourage him to start cardiac rehab and we will clear him with the cardiac rehab department so they will contact him. I told him if he sees any changes with his sternal incision in terms of redness, warmth, or drainage he needs to contact the surgeon. His return to work will be determined by his surgeon and or the primary care provider. He will follow up with Dr. Newberry in 3 months. Immunizations Immunization Administration Dates Next Due DTP 04/15/1983,05/04/1978,02/16/1978 ,1977 Influenza, Unspecified 05/25/2018(Deferred: [place] ent Refused) MMR 07/08/1992 OPV 04/15/1983,05/04/1978,02/16/1978 ,1977 Td, adsorbed 07/08/1992 Surgical History Surgery Date Site/Laterality Comments CORONARY ARTERY BYPASS GRAFT 01/18/2019 CABGx4 Medical History Medical History Date Comments Thyroid nodule Tobacco use Anxiety Coronary artery disease Hyperlipidemia Dyslipidemia Hypertension Anxiety Family History Medical History Relation Name Comments Drug abuse Brother Drug overdose Coronary artery disease Father's Brother Coronary artery disease, premature; Coronary artery disease Mother Marii nary artery disease, premature; Diabetes Mother Diabetes mellit ; Coronary artery disease Mother's Brother Coronary artery disease, premature; Coronary artery disease Paternal Grandfather Coronary artery disease, premature; Relation Name Status Comments Brother Father Alive Father's Brother Mother Mother's Brother Paternal Grandfather Social History Tobacco Use Types Packs/Day Years Used Date Smoking Tobacco: Former Cigarettes 1 20 0 01/17/1999 - 01/17/2019 Smokeless Tobacco: Current Chew Alcohol Use Standard Drinks/Week Comments Never 0 (1 standard drink = 0.6 oz pur e alcohol) AUDIT-C Answer Date Recorded Frequency of Alcohol Consumption Never 12/26/2018 Average Number of Drinks Not on file 019 Frequency of Binge Drinking Not on file 02/2019 PHQ-2 Answer Date Recorded PHQ-2 Score 0 06/14/2019 Sex and Gender Information Value Date Recorded Sex Assigned at Not on file 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 Gender Identity Not on file Sexual Orientation Not on file Obstetrics History Last Filed Vital Signs Vital Sign Reading Time Taken Comments Blood Pressure 124/80 04/23/2020 1:59 PM CDT Pulse 70 04/23/2020 1:59 PM CDT Temperature 37.2 C (98.9 F) 10/23/2019 9:25 AM LODGE SALES ASSOCIATE Respiratory Rate 20 03/12/2020 2:05 PM CDT Oxygen Saturation 97% 03/12/2020 2:05 PM CDT Inhaled Oxygen Concentration - - Weight 81.6 kg (180 lb) 04/23/2020 1:59 PM CDT Height 167.6 cm (5' 6 ) 04/23/2020 1:59 PM CDT Body Mass Index 29.05 04/23/2020 1:59 PM CDT Plan of Treatment Not on file Insurance [facility] PL[facility]/PPO Address: [place] [address] [facility]O Address: [place] [address] [facility] CHOICE PLUS [facility] HMO/PPO Address: [address] [address] [place] [address] Advance Directives For more information, please contact: [phone] * Full Code (Latest Code Status on File) Date Activated Date Inactivated Comments 01/17/2019 1:44 PM 01/22/2019 3:15 PM * Full Code Date Activated Date Inactivated Comments 01/17/2019 11:18 AM 01/17/2019 1:31 PM Care Teams Tile Layer Supervisor Relationship Specialty Start Date End Date Mendy Fields MD PCP - General Internal Medicine 12/26/18
--- OUTSIDE RECORDS SUMMARY | 2025-02-27 13:29 | XMS_ITS | Clinical Summary ---
Author Organization [facility] [employer] Address [address] [place] [address] Care Team Providers Care Vending Machine Host/Hostess Name Role Phone Trang Woods CHIEF II DISPATCHER-SOFTWARE CONFIGURATION ANALYST Primary Care Provide r Source Comments [facility] [employer],non-owned Affiliates and Associated Physician Practices is amultiple site organization consisting of ambulatory clinics and hospital sitesin [place], [place], [place] and [place]. This disclosure is being madepursuant to the Care Everywhere program and may not contain all information available regarding this patient. Last updated 18.[employer] Allergies No known active allergies Medications * Be aware that medications may not be up to date on this document. Alwaysverify current medications with the patient. metoprolol tartrate IR (Lopressor) 50 MG tablet Take 1 (one) tablet by mouth 2 times daily 2 Active atorvastatin (Lipitor) 80 MG tablet Take 1 (one) tablet by mouth once daily 2 Active aspirin EC (Ecotrin) 81 MG tablet Take 1 (one) tablet by mouth once daily Active Melatonin 5 MG Take 20 mg by mouth at bedtime Active ibuprofen (Motrin) 200 MG tablet Take 4 (four) tablets by mouth every 6 hours as needed for Pain Active ondansetron, disintegrating, (Zofran ODT) 8 MG tablet Take 1 (one) tablet by mouth every 8 hours as needed 2 Active tamsulosin (Flomax) 0.4 MG capsule Take 1 (one) capsule by mouth once daily At the same time every day after a meal. Active pantoprazole EC (Protonix) 40 MG tabletIndications :Overdose of nonsteroidal anti-inflammatory drug (NSAID), accidental or unintentional, initial encounter TAKE ONE TABLET BY MOUTH DAILY 30 tablet 3 Active Active Problems No known active problems Family History Medical History Relation Name Comments Hypertension Father CAD (Coronary Artery Disease) Mother Diabetes - Type 2 Mother Hypertension Mother Relation Name Status Comments Father Alive Mother Social History Tobacco Use Types Packs/Day Years Used Date Smoking Tobacco: Former Cigarettes Q uit: 2019 Smokeless Tobacco: Former Tobacco Cessation:Counseling Given: Not Answered Alcohol Use Standard Drinks/Week Comments Not Currently 0 (1 standard drink = 0.6 oz pur e alcohol) AUDIT-C Answer Date Recorded Q1: How often do you have a drink containing alcohol? Never 08/03/2022 Q2: How many drinks containi ng alcohol do you have on a typical day when you are drinking? Patient does not drink Q3: How often do you have si x or more drinks on one occasion? Never 08/03/2022 Sex and Gender Information Value Date Recorded Sex Assigned at Not on file Legal Sex Male 1:23 PM CDT Gender Identity Not on file Sexual Orientation Not on file Last Filed Vital Signs Vital Sign Reading Time Taken Comments Blood Pressure 126/93 11/24/2022 9:[address] Pulse 76 11/24/2022 9:[address] Temperature 37.7 C (99.9 F) 11/24/2022 9:[address] Respiratory Rate 12 08/03/2022 3:45 PM CDT Oxygen Saturation 99% 11/24/2022 9:[address] Inhaled Oxygen Concentration - - Weight 87.2 kg (192 lb 3.2 oz) 11/24/2022 9:[address] Height 172.7 cm (5' 8 ) 11/24/2022 9:[address] Body Mass Index 29.22 11/24/2022 9:[address] Plan of Treatment Health Maintenance Due Date Last Done Comments COLOGUARD (AGES 45-75) - COL ON CA SCREENING 1977 CT COLONOGRAPHY - COLON CA SCREENING 1977 FIT - COLON CA SCREENING 1977 FLEX SIG - COLON CA SCREENING 1977 HIV SCREENING 1992 HEPATITIS C SCREENING 09/26/1995 DTAP/TDAP/TD VACCINES (1 - Tdap) 1996 HEPATITIS B VACCINE (1 of 3 - 19+ 3-dose series) 1996 COVID-19 VACCINE (1 - 2023-2 5 season) 2024 DEPRESSION SCREENING 10/24/2024 INFLUENZA VACCINE (Season Ended) 2025 SCREENING FOR DIABETES 07/14/2025 07/14/2022 ZOSTER VACCINE (1 of 2) 2027 COLON MONITORING 08/03/2032 08/03/2022, 08/03/2022 COLONOSCOPY - COLON CA SCREENING 08/03/2032 08/03/2022, 08/03/2022 Colorectal Cancer Screening 08/03/2032 HIB VACCINE Aged Out No longer eligi ble based on patient's age to complete this topic HPV VACCINE Aged Out No longer eligi ble based on patient's age to complete this topic MENINGOCOCCAL (Group B) VACCINE SHARED DECISION-MAKING Aged Out No longer eligible based on patient's age to complete this topic MENINGOCOCCAL GROUPS A/C/Y/W VACCINE Aged Out No longer eligible b ased on patient's age to complete this topic PNEUMOCOCCAL VACCINE Aged Out No long er eligible based on patient's age to complete this topic Goals Goal Patient Goal Type Associated Problems Recent Progress Patient-Stated? Author Medication Management General On track( 023 10:[address]) Yadira Hoff fur dresser Procedure Name Priority Date/Time Associated Diagnosis Comments ENDOSCOPY, COLON, DIAGNOSTIC Routine 08/03/2022 1:48 PM CDT BASIC METABOLIC PANEL (CALCIUM TOTAL) Routine 07/14/2022 12:45 PM CDT Chronic diarrhea Generalized abdominal pain from Last 3 Months or Most Recently Relevant to Health Maintenance Results * ENDOSCOPY, COLON, DIAGNOSTIC (08/03/2022 1:48 PM CDT) Report Endoscopy POC Endoscopy Department Report _ Patient Name: Adeel Thakur Procedure Date: 08/03/2022 1:48 PM Date of : 1975 Classification: Outpatient Gender: Male Ethnicity: Not or Race: White _ Providers: Grecia Urrutia MD: Procedure: Colonoscopy Indications: Chronic diarrhea Medications: Monitored Anesthesia Care Patient Profile: This is a 46 year old male. Description of Procedure: After I obtained informed consent, the scope was passed under direct vision. Throughout the procedure, the patient's blood pressure, pulse, and oxygen saturations were monitored continuously. The [id number] was introduced through the anus and advanced to the terminal ileum. The colonoscopy was performed without difficulty. The patient tolerated the procedure well. The quality of the bowel preparation was evaluated using the BBPS ([place] Bowel Preparation Scale) with scores of: Right Colon = 2 (minor amount of residual staining, small fragments of stool and/or opaque liquid, but mucosa seen well), Transverse Colon = 2 (minor amount of residual staining, small fragments of stool and/or opaque liquid, but mucosa seen well) and Left Colon = 2 (minor amount of residual staining, small fragments of stool and/or opaque liquid, but mucosa seen well). The total BBPS score equals 6. The quality of the bowel preparation was good. Scope insertion time was 3 minutes. Scope withdrawal time was 12 minutes. Findings: The perianal and digital rectal examinations were normal. The terminal ileum appeared normal. A 7 mm polyp was found in the descending colon. The polyp was sessile. The polyp was removed with a cold snare. Resection and retrieval were complete. External and internal hemorrhoids were found during retroflexion. The hemorrhoids were medium-sized and Grade II (internal hemorrhoids that prolapse but reduce spontaneously). The exam was otherwise without abnormality. Biopsies for histology were taken with a cold forceps from the cecum, ascending colon, transverse colon and rectum for evaluation of microscopic colitis. Estimated Blood Loss: Estimated blood loss: none. Complications: No immediate complications. Impression: - The examined portion of the ileum was normal. - One 7 mm polyp in the descending colon, removed with a cold snare. Resected and retrieved. - External and internal hemorrhoids. - The examination was otherwise normal. - Biopsies were taken with a cold forceps from the cecum, ascending colon, transverse colon and rectum for evaluation of microscopic colitis. Recommendation: - Patient has a contact number available for emergencies. The signs and symptoms of potential delayed complications were discussed with the patient. Return to normal activities tomorrow. Written discharge instructions were provided to the patient. - High fiber diet. - Repeat colonoscopy date to be determined after pending pathology results are reviewed for surveillance. Attending Participation: I personally performed the entire procedure. Procedure Code(s): --- Professional --- 40530, Colonoscopy, flexible; with removal of tumor(s), polyp(s), or other lesion(s) by snare technique 62355, 59, Colonoscopy, flexible; with biopsy, single or multiple Diagnosis Code(s): --- Professional --- K64.1, Second degree hemorrhoids K63.5, Polyp of colon K52.9, Noninfective gastroenteritis and colitis, unspecified CPT copyright 2019 [employer]. All rights reserved. The codes documented in this report are preliminary and upon human resources associate review may be revised to meet current compliance requirements. Grecia Gupta, 08/03/2022 6:05:06 PM Note Initiated On: 08/03/2022 1:48 PM Number of Addenda: [address] [id number] [facility] [employer] 08/03/2022 1:48 PM CDT Grecia Gupta MD GI PROCEDURE ORDERABLES Edited R esult - Final [facility] [employer] * (ABNORMAL) BASIC METABOLIC PANEL (CALCIUM TOTAL) (07/14/2022 12:45 PM CDT) BUN 14 7 - 26 mg/dL 07/14/2022 1:53 PM [facility] Creatinine 0.94 0.71 - 1.16 mg/dL 07/14/2022 1:53 PM [facility] Sodium 140 136 - 145 mmol/L 07/14/2022 1:53 PM [facility] Potassium 5.3(H) 3.5 - 4.5 mmol/L 07/14/2022 1:53 PM [facility] Chloride 105 98 - 107 mmol/L 07/14/2022 1:53 PM [facility] CO2 25 22 - 29 mmol/L 07/14/2022 1:53 PM [facility] Glucose 117(H) 70 - 115 mg/dL 07/14/2022 1:53 PM [facility] Calcium 9.4 8.4 - 10.2 mg/dL 07/14/2022 1:53 PM [facility] Anion Gap 15 8 - 18 07/14/2022 1:53 PM [facility] BUN/Creatinine Ratio 15 7 - 23 07/14/2022 1:53 PM [facility] Osmolality Calculated 292 270 - 300 mOsm/kg 07/14/2022 1:53 PM [facility] eGFR by CKD-EPI >90 >=90 mL/min/1.7 3 m2 07/14/2022 1:53 PM [facility] Blood BLOOD SPECIMEN / Unknown Lab Venipuncture / Unknown 07/14/2022 12:45 PM CDT 07/14/2022 1:22 PM T Grecia Gupta MD LAB - CHEMISTRY ORDERABLES Final Result [facility] [address] [place] [address], [facility] [phone] from Last 3 Months or Most Recently Relevant to Health Maintenance Insurance [facility] Care Teams Vending Machine Host/Hostess Relationship Specialty Start Date End Date Trang Woods APRN-ARYA [address] [place] [id number] PCP - General Nurse Practitioner 07/14/22
--- OUTSIDE RECORDS SUMMARY | 2025-02-27 13:29 | XMS_ITS | Clinical Summary ---
Author Organization [facility] Address [address] [place] [address] Phone Care Team Providers Care Hook Puller Name Role Phone Alex Tapia MD Primary Care Provider [phone] Ovidio Pierre MD Unavailable [phone] Allergies No known active allergies Medications aspirin EC 81 MG Tablet Delayed Response Take 81 mg by mouth daily. Active atorvastatin (LIPITOR) 80 MG Tablet Take 80 mg by mouth daily. Active traZODone (DESYREL) 50 MG Tablet Take 50 mg by mouth nightly. Active metoprolol tartrate (LOPRESSOR) 50 MG Tablet Take 50 mg by mouth 2 times daily. Active tamsulosin (FLOMAX) 0.4 MG Capsule Take 0.4 mg by mouth daily. Active buPROPion HCl (WELLBUTRIN XL PO) Take by mouth. 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 Gender Identity Not on file Sexual Orientation Not on file Last Filed Vital Signs Vital Sign Reading Time Taken Comments Blood Pressure 112/66 02/11/2023 9:21 AM CDT Pulse 60 02/11/2023 9:21 AM CDT Temperature 36.1 C (96.9 F) 02/11/2023 9:21 AM CDT Respiratory Rate 16 02/11/2023 9:21 AM CDT Oxygen Saturation 96% 02/11/2023 9:21 AM CDT Inhaled Oxygen Concentration - - Weight 89.9 kg (198 lb 1.6 oz) 02/11/2023 9:21 A M CDT Height 172.7 cm (5' 8 ) 02/11/2023 9:21 AM CDT Body Mass Index 30.12 02/11/2023 9:21 AM CDT Plan of Treatment Health Maintenance Due Date Last Done Comments Hepatitis C Virus (HCV) Screening 1975 TdaP Immunization 1977 Hepatitis B Immunization (1 of 3 - 19+ 3-dose series) 1996 Pneumococcal Immunization Combined (1 of 2 - PCV) 1996 Colonoscopy 2022 Colorectal Cancer Screening 2022 Influenza Immunization (#1) 2024 SARS-COV-2 Immunization ( - season) 2024 Respiratory Syncytial Virus (RSV) Immunization (Adult) (1 - 1-dose 75+ series) 2052 DTaP/Tdap/Td Immunization Discontinued 1991, 04/15/1983, 05/04/1978, Additional history exists Meningococcal Immunization (ACWY) Aged Out No longer eligible based on patient's age to complete this topic Rotavirus Immunization Aged Out No lo nger eligible based on patient's age to complete this topic Insurance [facility] [employer] Care Teams Hook Puller Relationship Specialty [place] [address] [place] [address] PCP - General Family Medicine 02/11/23 Ovidio Pierre MD [address] [place] [id number] Consulting Physician Neurology 02/11/23
--- OUTSIDE RECORDS SUMMARY | 2025-02-27 13:29 | XMS_ITS | Referral Summary ---
Author Organization [facility] Sylvia Sage Address [address] [place] [address] Care Team Providers Care Measurer Name Role Phone Mendy Fields MD Primary [...] (01/16/2019): Added automatically from request for surgery [id number] Abnormal cardiovascular stress test 01/16/2019 Overview (01/16/2019): Added automatically from request for surgery [id number] Chronic thoracic back pain 05/07/2016 Overview (01/28/2017): [...] artery disease of n ative artery of [place] heart with stable angina pectoris Assessment & [...] doctor, he may benefit from seeing a instructor painting. 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 DIAL BUFFER Gender Identity Not on file Sexual Orientation Not on file Last Filed Vital Signs Vital Sign Reading Time Taken Comments Blood Pressure 124/80 04/23/2020 1:59 PM CDT Pulse 70 04/23/2020 1:59 PM CDT Temperature 37.2 C (98.9 F) 10/23/2019 9:25 AM DIAL BUFFER Respiratory Rate 20 03/12/2020 2:05 PM CDT Oxygen Saturation 97% 03/12/2020 2:05 PM CDT Inhaled Oxygen Concentration - - Weight 81.6 kg (180 lb) 04/23/2020 1:59 PM CDT Height 167.6 cm (5' 6 ) 04/23/2020 1:59 PM CDT Body Mass Index 29.05 04/23/2020 1:59 PM CDT Plan of Treatment Not on file Insurance [facility] CHOICE PLUS [facility] CHOICE PLUS [facility] CHOICE PLUS Advance Directives For more information, please contact: [phone] * Full Code (Latest Code Status on File) Date Activated Date Inactivated Comments 01/17/2019 1:44 PM 01/22/2019 3:15 PM * Full Code Date Activated Date Inactivated Comments 01/17/2019 11:18 AM 01/17/2019 1:31 PM Care Teams Measurer Relationship Specialty Start Date End Date Mendy Fields MD PCP - General Internal Medicine 12/26/18
--- OUTSIDE RECORDS SUMMARY | 2025-02-27 13:29 | XMS_ITS | Encounter Summary ---
Author Organization [facility] Address [address] [place] [address] Care Team Providers Care Medical Administrative Assistant Name Role Phone Unavailable Primary Care Provider Unavailabl e Encounter Details Date Type Department Care Team (Late st Contact Info) Description 12/12/2005 Outpatient Historical [facility] Ilda Hightower MD [address] 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
--- NOTE | 2025-02-27 13:34 | ED_ITS ---
HPI - Dizziness General Chief Complaint: Dizziness Stated Complaint: dizzy; numbness Time Seen by Provider: 02/27/25 13:33 Source: patient Mode of arrival: ambulatory Limitations: no limitations History of Present Illness HPI Narrative: 49-year-old male, smoker with a history of hypertension, dyslipidemia, CAD status post CABG, pancreatitis, anxiety / depression presents to the ED with -- anxious and panicky when I got up this morning -- dizziness which started after he was shovelling. He felt lightheaded and dizzy. No vertigo. -- pain in his lower neck without any radiation -- numbness and tingling of his hands with carpopedal spasm. -- headache Which is located on the top of his head. No nausea / vomiting. No photophobia or phonophobia. No focal neuro deficits. MD elicited complaint: dizziness and lightheadedness Onset (ago): hour(s) ( 2 hours ago) Timing: sudden onset Severity: moderate Description: lightheadedness History of similar symptoms: No Exacerbating factors: nothing Relieving factors: nothing Associated symptoms: denies other symptoms Related Data Home Medications ?Medication ?Instructions ?Recorded ?Confirmed ?Last Taken ?Type aspirin 325 mg tablet (Luis 325 mg PO DAILY 02/26/22 12/27/22 Unknown History Aspirin) atorvastatin 20 mg tablet 80 mg PO DAILY 02/26/22 12/27/22 Unknown History trazodone 50 mg tablet 50 mg PO QHS PRN 02/26/22 12/27/22 Unknown History tamsulosin 0.4 mg capsule 0.4 mg PO DAILY 07/01/22 12/27/22 Unknown History amitriptyline 25 mg tablet 25 mg PO QHS 12/27/22 12/27/22 Unknown History buspirone 5 mg tablet 5 mg PO BID 12/27/22 12/27/22 Unknown History metoprolol tartrate 50 mg tablet 25 mg PO BID 12/27/22 12/27/22 Unknown History pantoprazole 40 mg tablet,delayed 40 mg PO QAM 12/27/22 12/27/22 Unknown History release Allergies Allergy/AdvReac Type Severity Reaction Status Date / Time No Known Allergies Allergy Verified 02/27/25 13:26 Review of Systems 2 Review of Systems: All systems reviewed & are unremarkable except as noted in HPI and below Constitutional: Constitutional: Reports as per HPI, Reports no additional constitutional complaints and Reports weakness Eyes: Eyes: Reports as per HPI and Reports no additional eye complaints ENT: Reports system reviewed and no additional complaints, except as documented and Reports as per HPI Cardiovascular: Cardiovascular: Reports as per HPI and Reports no additional cardiovascular complaints Respiratory: Respiratory: Reports as per HPI and Reports no additional respiratory complaints Gastrointestinal: Gastrointestinal: Reports as per HPI and Reports no additional gastrointestinal complaints Genitourinary: Genitourinary: Reports no additional male genitourinary complaints and Reports as per HPI Musculoskeletal: Musculoskeletal: Reports no additional musculoskeletal complaints, Reports as per HPI, Reports back pain ( neck pain) and Reports muscle cramps Integumentary/Breasts: Skin/Breast: Reports system reviewed and no additional complaints, except as docu and Reports as per HPI Neurologic: Reports system reviewed and no additional complaints, except as documented, Reports as per HPI and Reports dizziness Psychiatric: Psychiatric: Reports no additional psychiatric complaints, Reports as per HPI and Reports anxiety Endocrine: Endocrine: Reports no additional endocrine complaints and Reports as per HPI Hematologic/Lymphatic: Hematologic/Lymphatic: Reports no additional hematologic/lymphatic complaints and Reports as per HPI Allergic/Immunologic: Allergic/Immunologic: Reports no additional allergic/immunologic complaints and Reports as per HPI PMFSH Past Medical History Medical History HLD (hyperlipidemia) HTN (hypertension) CAD (coronary artery disease) Surgical History Surgical History Hx of CABG Family History Family History Mother Acute myocardial infarction Social History Social History Smoking packs per day: 1 Smoking cigarettes per day: 20.0 Years smoked: 28 Smoking pack-years: 28.00 Smoking status: Former smoker Tobacco type: e-cigarettes/vaping Alcohol intake: current Drinks per week: 10 Alcohol use details: Twice a week Substance use: never Substance use type: does not use Living arrangements: with family Gender identity (if verbalized by the patient): Male Sexual Orientation (if Verbalized by the Patient): Straight or Heterosexual Spiritual care concerns: No Exam 2 Narrative: not orthostatic Const: General: no acute distress Orientation/consciousness: patient oriented x3 Limitations: no limitations HENMT: Head: normal to inspection Face/Nose/Sinus: Normal external nose present Face and sinus: normal facial exam Mouth: Yes Normal oral and palatal mucosa present Throat: posterior oropharynx normal Eyes: Conjunctivae: conjunctivae normal Pupils: Equal, round and reactive pupils present EOM: EOMs intact bilaterally Direct Ophthalmoscopy: no photophobia Neck: Neck: no lymphadenopathy and no meningeal signs Other: no spinal tenderness Chest: Chest palpation & inspection: normal inspection of the chest Resp: Effort & Inspection: normal respiratory effort Auscultation: clear to auscultation bilaterally Cardio: Rate: regular rate Rhythm: regular rhythm GI: Auscultation: normal bowel sounds Other: no tenderness/ rigidity/rebound : General: Yes no CVA tenderness Skin: General skin exam: normal color Rashes: no rashes Wounds: no wounds Neuro: General: patient oriented x3, moves all extremities, no meningeal signs, no focal motor deficits and CN's II-XI intact bilaterally Cranial nerves: Yes Nystagmus not present Speech: normal speech Gait exam (Neuro): Normal gait present Extrem: General: normal to inspection and no clubbing, cyanosis or edema Psych: Mental Status: mental status grossly normal Affect: Anxious affect present Attitude: cooperative Course Course Emergency Course: dizziness-- CT of the head did not show any acute findings. EKG not show any acute findings. Normal cardiac/D-dimer. in view of his history of CABG in 2019 and current symptoms of dizziness and neck pain advised the patient to get a stress test. The patient is scheduled to get a stress test next week. headache-- headache has resolved. CT of the head reveals sinus disease without any other acute findings anxiety-- Vital Signs Vital signs: Vital Signs Temperature 36.4 C L 02/27/25 13:19 Pulse Rate 94 02/27/25 13:19 Respiratory Rate 12 02/27/25 13:19 Blood Pressure 109/88 02/27/25 13:19 Pulse Oximetry 96 02/27/25 13:19 Oxygen Delivery Room Air 02/27/25 13:19 Temperature 36.4 C L 02/27/25 13:19 Pulse Rate 82 02/27/25 14:30 Respiratory Rate 19 02/27/25 14:01 Blood Pressure 102/80 02/27/25 14:22 Pulse Oximetry 95 02/27/25 14:30 Oxygen Delivery Room Air 02/27/25 13:19 MDM - Dizziness MDM Narrative Medical decision making narrative: dizziness headache anxiety Differential Diagnosis Differential diagnosis: Likely orthostatic hypotension and vertebral basilar insufficiency Medical Records Attestation: I reviewed the patient's medical records. Lab Data Attestation: I reviewed the patient's lab results. 02/27/25 14:08 02/27/25 14:08 Labs: Lab Results 02/27/25 02/27/25 Range/Units 13:23 14:08 WBC 9.5 (4.8-10.8) K/mm3 RBC 4.79 (4.70-6.10) M/mm3 Hgb 13.9 L (14.0-18.0) g/dL Hct 41.5 (40.0-54.0) % MCV 86.6 (78.0-102.0) fL MCH 29.0 (27.0-31.0) pg MCHC 33.5 (32-36) g/dL RDW 12.5 (11.6-14.4) % Plt Count 223 (150-420) K/mm3 MPV 10.3 (8.7-11.0) fl Immature Gran % (Auto) 0.3 H (0.0-0.0) % Neut % (Auto) 74.4 H (50.0-70.0) % Lymph % (Auto) 16.7 L (18.0-42.0) % [place] % (Auto) 7.4 (2.0-11.0) % Eos % (Auto) 0.9 L (1.0-6.0) % Baso % (Auto) 0.3 (0.0-1.0) % Lymph # (Auto) 1.59 (1.10-4.50) K/mm3 [place] # (Auto) 0.70 (0.10-0.90) K/mm3 Eos # (Auto) 0.09 (0.02-0.50) K/mm3 Baso # (Auto) 0.03 (0.00-0.10) K/mm3 Abs Immat Gran (auto) 0.03 H (0.00-0.00) K/mm3 Absolute Neuts (auto) 7.07 (1.70-7.20) K/mm3 Absolute Nucleated RBC 0.00 (0.00-0.00) K/mm3 Nucleated RBC % 0.0 (0-0.0) % D-Dimer 0.21 (0.19-0.50) mg/L Sodium 140 (137-145) mmol/L Potassium 4.1 (3.4-5.0) mmol/L Chloride 109 H (98-107) mmol/L Carbon Dioxide 25 (22-30) mmol/L Anion Gap 6 (4-12) mmol/L BUN 17 (9-20) mg/dL Creatinine 0.95 (0.7-1.3) mg/dL Estim Creat Clear Calc 89 ml/min Estimated GFR > 60 (59 - ) Glucose 94 (65-110) mg/dL POC Capillary Glucose 79 (65-105) mg/dl Calculated Osmolality 291 (285-295) mOsm/kg Lactic Acid 0.9 (0.4-2.0) mmol/L Calcium 8.8 (8.4-10.2) mg/dL Total Bilirubin 0.9 (0.2-1.3) mg/dL AST 28 (17-59) U/L ALT 33 (6-50) U/L Alkaline Phosphatase 81 (38-126) U/L Troponin I < 0.012 (0.000-0.034) ng/mL NT-Pro-B Natriuret Pep 49 (19.9-100) pg/mL Total Protein 7.1 (6.3-8.2) g/dL Albumin 4.5 (3.5-5.1) g/dL Lipase 22 L (23-300) U/L ECG Data EKG #1: ECG completion date: 02/27/25 ECG completion time: 13:29 Interpretation: normal sinus rhythm. Normal axis. No ST elevation. 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 Discharge Plan Discharge Clinical Impression: Dizziness, Anxiety Headache Qualifiers: Headache type: unspecified Headache chronicity pattern: acute headache I ntractability: not intractable Qualified Code(s): R51.9 - Headache, unspecified Patient Disposition: Home Condition: Stable Instructions: Antibiotic Form, Acute Headache (ED), Dizziness (ED), Anxiety (ED) Patient Language: Fijian Prescriptions: No Action aspirin [Luis Aspirin] 325 mg tablet 325 mg PO DAILY trazodone 50 mg tablet 50 mg PO QHS PRN atorvastatin 20 mg tablet 80 mg PO DAILY tamsulosin 0.4 mg capsule 0.4 mg PO DAILY buspirone 5 mg tablet 5 mg PO BID amitriptyline 25 mg tablet 25 mg PO QHS pantoprazole 40 mg tablet,delayed release (DR/EC) 40 mg PO QAM metoprolol tartrate 50 mg tablet 25 mg PO BID acetaminophen [Tylenol Extra Strength] 500 mg tablet 1,000 mg PO Q6H PRN (Reason: pain) Qty: 50 0RF ibuprofen 600 mg tablet 600 mg PO TID PRN (Reason: fever or pain) Qty: 30 0RF Follow-up/Referrals: Regina,Alex Ibrahim MD [Primary Care Provider] - Time of Disposition: 15:38
--- NOTE | 2025-02-27 13:58 | ECG_ITS ---
Test Date: 2025-02-27 13:29:56 Measurements Intervals [place] Rate: 84 P: 62 WA: 161 QRS: 20 QRSD: 104 T: 104 QT: 381 QTc: 452 Interpretive Statements SINUS RHYTHM POSSIBLE RIGHT VENTRICULAR CONDUCTION DELAY [RSR (QR) IN V1/V2] No previous ECG available for comparison Electronically Signed On 02-27-2025 14:31:09 CDT by Bipin Short M.D.
[2025-02-27 14:12] LABS: Basophils Absolute Auto 0.03 K/mm3 (0.00-0.10); Basophils Percent Auto 0.3 % (0.0-1.0); Eosinophils Absolute Auto 0.09 K/mm3 (0.02-0.50); Eosinophils Percent Auto 0.9 % (1.0-6.0); Hematocrit 41.5 % (40.0-54.0); Hemoglobin 13.9 g/dL (14.0-18.0); Immature Granulocyte Absolute 0.03 K/mm3 (0.00-0.00); Immature Granulocyte Percent A 0.3 % (0.0-0.0); Lymphocytes Absolute Auto 1.59 K/mm3 (1.10-4.50); Lymphocytes Percent Auto 16.7 % (18.0-42.0); Mean Corpuscular HGB Conc 33.5 g/dL (32-36); Mean Corpuscular Volume 86.6 fL (78.0-102.0); Mean Platelet Volume 10.3 fl (8.7-11.0); Monocytes Percent Auto 7.4 % (2.0-11.0); Neutrophils Absolute Auto 7.07 K/mm3 (1.70-7.20); Neutrophils Percent Auto 74.4 % (50.0-70.0); Platelet Count Result 223 K/mm3 (150-420); Red Blood Count 4.79 M/mm3 (4.70-6.10); Red Cell Distribution Width 12.5 % (11.6-14.4); White Blood Count 9.5 K/mm3 (4.8-10.8)
[2025-02-27 14:31] LABS: D Dimer 0.21 mg/L (0.19-0.50)
[2025-02-27 14:35] LABS: Alanine Aminotransferase 33 U/L (6-50); Albumin Level 4.5 g/dL (3.5-5.1); Alkaline Phosphatase 81 U/L (38-126); Anion Gap 6 mmol/L (4-12); Aspartate Amino Transferase 28 U/L (17-59); Bilirubin,Total 0.9 mg/dL (0.2-1.3); Blood Urea Nitrogen 17 mg/dL (9-20); Calcium 8.8 mg/dL (8.4-10.2); Carbon Dioxide 25 mmol/L (22-30); Chloride 109 mmol/L (98-107); Estimated CRCL calculation 89 ml/min; Estimated Glomerular Filt Rate > 60; Glucose 94 mg/dL (65-110); Lipase 22 U/L (23-300); Osmolality Calculated 291 mOsm/kg (285-295); Potassium 4.1 mmol/L (3.4-5.0); Sodium 140 mmol/L (137-145); Total Protein 7.1 g/dL (6.3-8.2)
--- OUTSIDE RECORDS SUMMARY | 2025-02-27 14:39 | XMS_ITS | Clinical Summary ---
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
--- OUTSIDE RECORDS SUMMARY | 2025-02-27 14:39 | XMS_ITS | Clinical Summary ---
Author Organization [facility] Address [address] [place] [address] Care Team Providers Care Environmental Projects Advisor Name Role Phone Alex Tapia MD Primary Care Provider [phone] Allergies No known active allergies Medications aspirin [...] Sex Assigned at Male 11/22/2024 7:46 AM YOUTH CAREER SPECIALIST Legal Sex Male 8:59 PM YOUTH CAREER SPECIALIST Gender Identity Not on file Sexual Orientation Not on file Last Filed Vital Signs Vital Sign Reading Time Taken Comments Blood Pressure 139/85 09/20/2022 12:30 AM YOUTH CAREER SPECIALIST Pulse 62 09/20/2022 12:17 AM YOUTH CAREER SPECIALIST Temperature 36.2 C (97.2 F) 09/20/2022 12:17 AM YOUTH CAREER SPECIALIST Respiratory Rate 16 09/20/2022 12:17 AM YOUTH CAREER SPECIALIST Oxygen Saturation 98% 09/20/2022 12:45 AM YOUTH CAREER SPECIALIST Inhaled Oxygen Concentration - - Weight 83.9 kg (185 lb) 09/19/2022 9:09 PM YOUTH CAREER SPECIALIST Height 172.7 cm (5' 8 ) 09/19/2022 9:09 PM YOUTH CAREER SPECIALIST Body Mass Index 28.13 09/19/2022 9:09 PM YOUTH CAREER SPECIALIST Plan of Treatment Health Maintenance Due Date [...] to complete this topic Insurance Care Teams Environmental Projects Advisor Relationship Specialty Start Date End Date Alex Tapia MD PCP - General FAMILY PRACTICE 09/19/22
--- OUTSIDE RECORDS SUMMARY | 2025-02-27 14:39 | XMS_ITS | Clinical Summary ---
Author Organization [facility] Address [address] [place] [address] Care Team Providers Care Assembler Handbags Name Role Phone Trang Woods [employer] D[employer]NAM[employer] CONSULTANT-RECRUITMENT DIRECTOR Primary Care Provide r Source Comments [facility],non-owned Affiliates and Associated Physician Practices is amultiple site organization consisting of ambulatory clinics and hospital sitesin [place], [place], [place] and [place]. This disclosure is being madepursuant to the Care Everywhere program and may not contain all information available regarding this patient. Last updated 18.[facility] Allergies No known active allergies Medications * [...] Comments Blood Pressure 126/93 11/24/2022 9:51 AM CLINICAL PSYCHIATRIST Pulse 76 11/24/2022 9:51 AM CLINICAL PSYCHIATRIST Temperature 37.7 C (99.9 F) 11/24/2022 9:51 AM CLINICAL PSYCHIATRIST Respiratory Rate 12 08/03/2022 3:45 PM CDT Oxygen Saturation 99% 11/24/2022 9:51 AM CLINICAL PSYCHIATRIST Inhaled Oxygen Concentration - - Weight 87.2 kg (192 lb 3.2 oz) 11/24/2022 9:51 A M CLINICAL PSYCHIATRIST Height 172.7 cm (5' 8 ) 11/24/2022 9:51 AM CLINICAL PSYCHIATRIST Body Mass Index 29.22 11/24/2022 9:51 AM CLINICAL PSYCHIATRIST Plan of Treatment Health Maintenance Due Date [...] Management General On track( 023 10:00 AM CLINICAL PSYCHIATRIST) Yadira Hoff cook enchilada Procedure Name Priority Date/Time Associated Diagnosis Comments [...] and oxygen saturations were monitored continuously. The [id number] was introduced through the anus and advanced to the terminal ileum. The colonoscopy was performed without difficulty. The patient tolerated the procedure well. The quality of the bowel preparation was evaluated using the BBPS ([place] Bowel Preparation Scale) with scores of: Right [...] entire procedure. Procedure Code(s): --- Professional --- 96213, Colonoscopy, flexible; with removal of tumor(s), polyp(s), or other lesion(s) by snare technique 20286, 59, Colonoscopy, flexible; with biopsy, single or multiple Diagnosis Code(s): --- Professional --- K64.1, Second degree hemorrhoids K63.5, Polyp of colon K52.9, Noninfective gastroenteritis and colitis, unspecified CPT copyright 2019 [employer]. All rights reserved. The codes documented in this report are preliminary and upon lead pastor review may be revised to meet current compliance requirements. Grecia Gupta, 08/03/2022 6:05:06 PM Note Initiated On: 08/03/2022 1:48 PM Number of Addenda: [address] [address] [facility] PROVATION 08/03/2022 1:48 PM CDT Grecia Gupta MD GI PROCEDURE ORDERABLES Edited R esult - Final [facility] [employer]OVATION * (ABNORMAL) BASIC METABOLIC PANEL (CALCIUM TOTAL) (07/14/2022 12:45 PM CDT) BUN 14 7 - 26 mg/dL 07/14/2022 1:53 PM [facility] Creatinine 0.94 0.71 - 1.16 mg/dL 07/14/2022 1:53 PM [facility] Sodium 140 136 - 145 mmol/L 07/14/2022 1:53 PM [facility] Potassium 5.3(H) 3.5 - 4.5 mmol/L 07/14/2022 1:53 PM [facility] Chloride 105 98 - 107 mmol/L 07/14/2022 1:53 PM [facility] CO2 25 22 - 29 mmol/L 07/14/2022 1:53 PM [facility] Glucose 117(H) 70 - 115 mg/dL 07/14/2022 1:53 PM [facility] Calcium 9.4 8.4 - 10.2 mg/dL 07/14/2022 1:53 PM [facility] Anion Gap 15 8 - 18 07/14/2022 1:53 PM [facility] BUN/Creatinine Ratio 15 7 - 23 07/14/2022 1:53 PM [facility] Osmolality Calculated 292 270 - 300 mOsm/kg 07/14/2022 1:53 PM [facility] eGFR by CKD-EPI >90 >=90 mL/min/1.7 3 m2 07/14/2022 1:53 PM [facility] Blood BLOOD SPECIMEN / Unknown Lab Venipuncture / Unknown 07/14/2022 12:45 PM CDT 07/14/2022 1:22 PM T Grecia Gupta MD LAB - CHEMISTRY ORDERABLES Final Result [facility] [address] [place] [address], [facility] [phone] from Last 3 Months or Most Recently Relevant to Health Maintenance Insurance [facility] [facility] Care Teams Assembler Handbags Relationship Specialty Start Date End Date Trang Woods APRN-ARYA [address] [place] [id number] PCP - General Nurse Practitioner 07/14/22
--- OUTSIDE RECORDS SUMMARY | 2025-02-27 14:39 | XMS_ITS | Referral Summary ---
Author Organization [facility] Sage Address [address] [place] [address] Care Team Providers Care Communications Engineering Technician Name Role Phone Mendy Fields MD Primary [...] (01/16/2019): Added automatically from request for surgery [id number] Abnormal cardiovascular stress test 01/16/2019 Overview (01/16/2019): Added automatically from request for surgery [id number] Chronic thoracic back pain 05/07/2016 Overview (01/28/2017): [...] artery disease of n ative artery of [place] heart with stable angina pectoris Assessment & [...] doctor, he may benefit from seeing a paint maker. I did encourage him to start cardiac [...] on file Legal Sex Male 7:42 PM REFERENCE SERVICES HEAD Gender Identity Not on file Sexual Orientation Not on file Last Filed Vital Signs Vital Sign Reading Time Taken Comments Blood Pressure 124/80 04/23/2020 1:59 PM CDT Pulse 70 04/23/2020 1:59 PM CDT Temperature 37.2 C (98.9 F) 10/23/2019 9:25 AM REFERENCE SERVICES HEAD Respiratory Rate 20 03/12/2020 2:05 PM CDT Oxygen Saturation 97% 03/12/2020 2:05 PM CDT Inhaled Oxygen Concentration - - Weight 81.6 kg (180 lb) 04/23/2020 1:59 PM CDT Height 167.6 cm (5' 6 ) 04/23/2020 1:59 PM CDT Body Mass Index 29.05 04/23/2020 1:59 PM CDT Plan of Treatment Not on file Insurance [facility] CHOICE PLUS [facility] CHOICE PLUS [facility] CHOICE PLUS Advance Directives For more information, please contact: [phone] * Full Code (Latest Code Status on File) Date Activated Date Inactivated Comments 01/17/2019 1:44 PM 01/22/2019 3:15 PM * Full Code Date Activated Date Inactivated Comments 01/17/2019 11:18 AM 01/17/2019 1:31 PM Care Teams Communications Engineering Technician Relationship Specialty Start Date End Date Mendy Fields MD PCP - General Internal Medicine 12/26/18
--- OUTSIDE RECORDS SUMMARY | 2025-02-27 14:39 | XMS_ITS | Encounter Summary ---
Author Organization [facility] Address [address] [place] [address] Phone Care Team Providers Care Testing And Regulating Chief Name Role Phone Alex Tapia MD Primary Care Provider [phone] Ovidio Pierre MD Unavailable [phone] Reason for Visit * Reason Comments Medication Refill Encounter Details Date Type Department Care Team (Late st Contact Info) Description 02/24/2023 Refill [facility] - Neurology [facility] [address] [place] [address] Ovidio Pierre MD [address] [place] [address] Medication Refill Social History Tobacco [...] on file Legal Sex Male 1:57 PM IRONER SOCK Gender Identity Not on file Sexual Orientation [...] on filedocumented in this encounter Care Teams Testing And Regulating Chief Relationship Specialty [place] [address] [facility] [address] [place] [address] PCP - General Family Medicine 02/11/23 Ovidio Pierre MD [address] [place] [address] Consulting Physician Neurology 02/11/23 documented as of this encounter
--- OUTSIDE RECORDS SUMMARY | 2025-02-27 14:39 | XMS_ITS | Clinical Summary ---
Author Organization [facility] Sylvia Sage Address [address] [place] [address] Care Team Providers Care Pond Tender Name Role Phone Mendy Fields MD Primary [...] (01/16/2019): Added automatically from request for surgery [id number] Abnormal cardiovascular stress test 01/16/2019 Overview (01/16/2019): Added automatically from request for surgery [id number] Chronic thoracic back pain 05/07/2016 Overview (01/28/2017): [...] artery disease of n ative artery of [place] heart with stable angina pectoris Assessment & [...] he may benefit from seeing a paint roller cover machine setter. I did encourage him to start cardiac [...] on file Legal Sex Male 7:42 PM FEED RESEARCH AIDE Gender Identity Not on file Sexual Orientation Not on file Obstetrics History Last Filed Vital Signs Vital Sign Reading Time Taken Comments Blood Pressure 124/80 04/23/2020 1:59 PM CDT Pulse 70 04/23/2020 1:59 PM CDT Temperature 37.2 C (98.9 F) 10/23/2019 9:25 AM FEED RESEARCH AIDE Respiratory Rate 20 03/12/2020 2:05 PM CDT Oxygen Saturation 97% 03/12/2020 2:05 PM CDT Inhaled Oxygen Concentration - - Weight 81.6 kg (180 lb) 04/23/2020 1:59 PM CDT Height 167.6 cm (5' 6 ) 04/23/2020 1:59 PM CDT Body Mass Index 29.05 04/23/2020 1:59 PM CDT Plan of Treatment Not on file Insurance [facility] CHOICE PLUS [facility] CHOICE PLUS [facility] CHOICE PLUS Advance Directives For more information, please contact: [phone] * Full Code (Latest Code Status on File) Date Activated Date Inactivated Comments 01/17/2019 1:44 PM 01/22/2019 3:15 PM * Full Code Date Activated Date Inactivated Comments 01/17/2019 11:18 AM 01/17/2019 1:31 PM Care Teams Pond Tender Relationship Specialty Start Date End Date Mendy Fields MD PCP - General Internal Medicine 12/26/18
--- OUTSIDE RECORDS SUMMARY | 2025-02-27 14:39 | XMS_ITS | Clinical Summary ---
Author Organization [facility] Address [address] [place] [address] Phone Care Team Providers Care Director Of Quality Improvement Name Role Phone Alex Tapia MD Primary Care Provider [phone] Ovidio Pierre MD Unavailable [phone] Allergies No known active allergies Medications aspirin [...] on file Legal Sex Male 1:57 PM PUBLIC SAFETY DISPATCHER Gender Identity Not on file Sexual Orientation [...] patient's age to complete this topic Insurance [facility] Care Teams Director Of Quality Improvement Relationship Specialty [place] [address] [place] [address] PCP - General Family Medicine 02/11/23 Ovidio Pierre MD [address] [place] [id number] Consulting Physician Neurology 02/11/23
--- OUTSIDE RECORDS SUMMARY | 2025-02-27 14:39 | XMS_ITS | Encounter Summary ---
Author Organization [employer] Address [address] [place] [address] Care Team Providers Care Agricultural Equipment Salesperson Name Role Phone Unavailable Primary Care Provider Unavailabl e Encounter Details Date Type Department Care Team (Late st Contact Info) Description 12/12/2005 Outpatient Historical [facility] Ilda Hightower MD [address] 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
[2025-02-27 14:41] LABS: Lactic Acid Reflex 0.9 mmol/L (0.4-2.0)
[2025-02-27 14:44] LABS: NT Pro B Type Natriuretic Pept 49 pg/mL (19.9-100)
[2025-02-27 14:51] LABS: Troponin I < 0.012 ng/mL (0.000-0.034)
--- NOTE | 2025-02-27 15:48 | PC.NURSE ---
1500 pt asked to move to another area to help make room for a critical pt arriving soon via ambulance. pt became upset and verbal about being kicked out of the er. pt informed her treatment will continue in the new space. pt angry that she is only receiving an oral med and then being discharged. requests to speak with erp again. 1520 pt now asking to speak with charge nurse. 1540 pt walked out without discharge instructions. refused oral pain med
== END 2025-02-27 16:15 | disposition home or self-care (01) ==
PROVIDERS: Emergency Provider Internal Medicine Critical Care Medicine; PCP Family Medicine
DX: R42 Dizziness and giddiness (principal); F41.9 Anxiety disorder, unspecified; R51.9 Headache, unspecified; I25.810 Atherosclerosis of coronary artery bypass graft(s) without angina pectoris; I10 Essential (primary) hypertension; E78.5 Hyperlipidemia, unspecified; Z87.891 Personal history of nicotine dependence; Z95.1 Presence of aortocoronary bypass graft
CPT/HCPCS: 36415; 70450; 71045; 80053; 82948; 83605; 83690; 83880; 84484; 85025; 85380; 93005; 99284

== ENCOUNTER 2025-07-14 17:44 | Emergency (ER) | payer OTHER, SELFPAY ==
[2025-07-14 17:44] VITALS: BP 150/98; PULSE 90; RESP 18; TEMP 36.1; O2SAT 97
--- OUTSIDE RECORDS SUMMARY | 2025-07-14 17:49 | XMS_ITS | Clinical Summary ---
Author Organization [facility] [employer] Address [address] [place] [address] Care Team Providers Care Crozer Name Role Phone Trang Woods REELING MACHINE SETUP OPERATOR-JUDGE'S CLERK Primary Care Provide r Source Comments [facility] [employer],non-owned Affiliates and Associated Physician Practices is amultiple site organization consisting of ambulatory clinics and hospital sitesin [place], [place], [place] and [place]. This disclosure is being madepursuant to the Care Everywhere program and may not contain all information available regarding this patient. 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 ATTENDANT Pulse 76 11/24/2022 9:51 AM AUTO SERVICE STATION ATTENDANT Temperature 37.7 C (99.9 F) 11/24/2022 9:51 AM AUTO SERVICE STATION ATTENDANT Respiratory Rate 12 08/03/2022 3:45 PM CDT Oxygen Saturation 99% 11/24/2022 9:51 AM AUTO SERVICE STATION ATTENDANT Inhaled Oxygen Concentration - - Weight 87.2 kg (192 lb 3.2 oz) 11/24/2022 9:51 A M AUTO SERVICE STATION ATTENDANT Height 172.7 cm (5' 8) 11/24/2022 9:51 AM AUTO SERVICE STATION ATTENDANT Body Mass Index 29.22 11/24/2022 9:51 AM AUTO SERVICE STATION ATTENDANT Plan of Treatment Health Maintenance Due Date Last Done Comments COLOGUARD (AGES 45-75) - COL ON CA SCREENING 1977 CT COLONOGRAPHY - COLON CA SCREENING 1977 FIT - COLON CA SCREENING 1977 FLEX SIG - COLON CA SCREENING 1977 HIV SCREENING 1992 HEPATITIS C SCREENING 09/26/1995 DTAP/TDAP/TD VACCINES (1 - Tdap) 1996 HEPATITIS B VACCINE (1 of 3 - 19+ 3-dose series) 1996 DEPRESSION SCREENING 10/24/2024 COVID-19 VACCINE (1 - 2023-2 5 season) 2025 INFLUENZA VACCINE (#1) 2025 SCREENING FOR DIABETES 07/14/2025 07/14/2022 ZOSTER [...] Management General On track( 023 10:00 AM AUTO SERVICE STATION ATTENDANT) Yadira Hoff farm mechanic Procedure Name Priority Date/Time Associated Diagnosis Comments [...] and oxygen saturations were monitored continuously. The [id number] was introduced through the anus and advanced to the terminal ileum. The colonoscopy was performed without difficulty. The patient tolerated the procedure well. The quality of the bowel preparation was evaluated using the BBPS ([place] Bowel Preparation Scale) with scores of: Right [...] entire procedure. Procedure Code(s): --- Professional --- 15915, Colonoscopy, flexible; with removal of tumor(s), polyp(s), or other lesion(s) by snare technique 19516, 59, Colonoscopy, flexible; with biopsy, single or multiple Diagnosis Code(s): --- Professional --- K64.1, Second degree hemorrhoids K63.5, Polyp of colon K52.9, Noninfective gastroenteritis and colitis, unspecified CPT copyright 2019 [employer]. All rights reserved. The codes documented in this report are preliminary and upon circular stuffer review may be revised to meet current compliance requirements. Grecia Gupta, 08/03/2022 6:05:06 PM Note Initiated On: 08/03/2022 1:48 PM Number of Addenda: [address] [address] [facility] PROVATION 08/03/2022 1:48 PM CDT Grecia Gupta MD GI PROCEDURE ORDERABLES Edited R esult - Final [facility] * (ABNORMAL) BASIC METABOLIC PANEL (CALCIUM TOTAL) (07/14/2022 12:45 PM CDT) BUN 14 7 - 26 mg/dL 07/14/2022 1:53 PM [facility] Creatinine 0.94 0.71 - 1.16 mg/dL 07/14/2022 1:53 PM [facility] Sodium 140 136 - 145 mmol/L 07/14/2022 1:53 PM [facility] Potassium 5.3(H) 3.5 - 4.5 mmol/L 07/14/2022 1:53 PM [facility] Chloride 105 98 - 107 mmol/L 07/14/2022 1:53 PM [facility] CO2 25 22 - 29 mmol/L 07/14/2022 1:53 PM [facility] Glucose 117(H) 70 - 115 mg/dL 07/14/2022 1:53 PM [facility] Calcium 9.4 8.4 - 10.2 mg/dL 07/14/2022 1:53 PM [facility] Anion Gap 15 8 - 18 07/14/2022 1:53 PM [facility] BUN/Creatinine Ratio 15 7 - 23 07/14/2022 1:53 PM [facility] Osmolality Calculated 292 270 - 300 mOsm/kg 07/14/2022 1:53 PM [facility] eGFR by CKD-EPI >90 >=90 mL/min/1.7 3 m2 07/14/2022 1:53 PM [facility] Blood BLOOD SPECIMEN / Unknown Lab Venipuncture / Unknown 07/14/2022 12:45 PM CDT 07/14/2022 1:22 PM T Grecia Gupta MD LAB - CHEMISTRY ORDERABLES Final Result [facility] [address] [place] [address], [facility] [phone] from Last 3 Months or Most Recently Relevant to Health Maintenance Insurance [employer] Care Teams Crozer Relationship Specialty Start Date End Date Trang Woods APRN-CNP [address] [place] [phone] PCP - General Nurse Practitioner 07/14/22
--- OUTSIDE RECORDS SUMMARY | 2025-07-14 17:49 | XMS_ITS | Clinical Summary ---
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 Gender Identity Not on file Sexual Orientation [...] A M CDT Height 172.7 cm (5' 8) 02/11/2023 9:21 AM CDT Body Mass Index 30.12 02/11/2023 9:21 AM CDT Plan of Treatment Health Maintenance Due Date Last Done Comments Hepatitis C Virus (HCV) Screening 1977 TdaP Immunization 1977 Hepatitis B Immunization (1 of 3 - 19+ 3-dose series) 1996 Cologuard 2022 Colonoscopy 2022 Colorectal Cancer Screening 2022 Immunochemical Fecal Occult Blood 2022 Influenza Immunization (#1) 2025 SARS-COV-2 Immunization ( season) 2025 Respiratory Syncytial Virus (RSV) Immunization (Adult) (1 - 1-dose 75+ series) 2052 DTaP/Tdap/Td Immunization Discontinued 1991, 04/15/1983, 05/04/1978, Additional history exists Human Papillomavirus (HPV) Immunization Aged Out No longer eligible based on patient's age to complete this topic Meningococcal Immunization (ACWY) Aged Out No longer eligible based on patient's age to complete this topic Pneumococcal Immunization Combined Aged Out No longer eligible based on patient's age to complete this topic Rotavirus Immunization Aged Out No lo nger eligible based on patient's age to complete this topic Insurance [facility] Care Teams Acupressure Therapist Relationship Specialty [place] [address] [facility] [address] [place] [address] PCP - General Family Medicine 02/11/23 Ovidio Pierre MD [address] [place] [address] Consulting Physician Neurology 02/11/23
--- OUTSIDE RECORDS SUMMARY | 2025-07-14 17:49 | XMS_ITS | Clinical Summary ---
Author Organization [facility] Address [address] [place] [address] Care Team Providers Care Glazier Apprentice Name Role Phone Alex Levin MD Primary Care Provider [phone] Allergies No known active allergies Medications aspirin [...] needed for Nausea. 20 tablet 2 Active Encounters Date Type Department Care Team Description 04/17/2025 9:28 AM CDT - 04/17/2025 11:59 PM CDT Hospital Encounter [facility] [address] [place] [address] Alex Levin MD Discharge Disposition: Home or Self Care (Routine Discharge) 04/17/2025 8:00 AM CDT - 04/17/2025 9:27 AM CDT Hospital Encounter [facility] [address] [place] [address] Alex Levin MD Discharge Disposition: Home or Self Care (Routine Discharge) 04/17/2025 Travel from Last 3 Months Social History Tobacco Use Types Packs/Day Years Used Date Smoking Tobacco: Former Cigarettes Smokeless Tobacco: Never Tobacco Cessation:Counseling Given: Not Answered Sex and Gender Information Value Date Recorded Sex Assigned at Male 11/22/2024 7:46 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 Legal Sex Male 8:59 PM FISHING ACCESSORIES MAKER Gender Identity Not on file Sexual Orientation Not on file Last Filed Vital Signs Vital Sign Reading Time Taken Comments Blood Pressure 139/85 09/20/2022 12:30 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 Pulse 62 09/20/2022 12:17 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 Temperature 36.2 C (97.2 F) 09/20/2022 12:17 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 Respiratory Rate 16 09/20/2022 12:17 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 Oxygen Saturation 98% 09/20/2022 12:45 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 Inhaled Oxygen Concentration - - Weight 83.9 kg (185 lb) 09/19/2022 9:09 PM FISHING ACCESSORIES MAKER Height 172.7 cm (5' 8) 09/19/2022 9:09 PM FISHING ACCESSORIES MAKER Body Mass Index 28.13 09/19/2022 9:09 PM FISHING ACCESSORIES MAKER Plan of Treatment Health Maintenance Due Date [...] PCV) 1996 COVID-19 Vaccine ( - season) 2025 Meningococcal B Vaccine Aged Out No l onger eligible based on patient's age to complete this topic Meningococcal Vaccine Aged Out No randy wei eligible based on patient's age to complete this topic RSV Immunizations Under 20 Months Aged Out No longer eligible based on patient's age to complete this topic Procedures Procedure Name Priority Date/Time Associated Diagnosis Comments NM PHARM NUC STRESS TEST 1DAY W TRACING Routine 04/17/2025 10:37 AM CDT Abnormal stress test STRESS TEST ONLY, EXERCISE Routine 04/17/2025 9:26 AM CDT Abnormal stress test from Last 3 Months Results * NM PHARM NUC STRESS TEST 1 DAY W TRACING (04/17/2025 10:37 AM CDT) Anatomical Region Laterality Modality Cardiac Nuclear Medicine 04/18/2025 8:53 AM CDT Impressions 04/18/2025 9:13 AM CDT IMPRESSION: 1. Fixed defect of mild severity in the basal to mid inferolateral wall consistent with infarct. On visual analysis, there is a tiny superimposed area of slightly increased severity on stress imaging at this location which could represent a small amount of superimposed ischemia. 2. Normal left ventricular size and systolic function. Ordered By: ALEX LEVIN Interpreted By: Debra Collins MD, 04/18/2025 8:53 AM Narrative 04/18/2025 9:13 AM CDT [address] [place] [address] EXAMINATION: MYOCARDIAL IMAGING (REST AND PHARMACOLOGIC-STRESS/SPECT) DATE OF STUDY: 04/17/2025 RADIOPHARMACEUTICAL: 10.7 mCi, 30.1 mCi Tc-99m sestamibi i.v. HISTORY: Abnormal stress EKG. Previous FL and CABG, coronary artery disease, family history of heart disease. Evaluate for ischemia and/or myocardial infarction. The patient's body mass index (BMI) was 28.13. The electrocardiogram during infusion of the pharmacologic agent was negative for ischemia. FINDINGS: Standard myocardial perfusion SPECT images were obtained after resting tracer injection. Subsequently, an intravenous infusion of Regadenoson (0.4 mg of A2A adenosine receptor agonist Regadenoson (Lexiscan), infused intravenously over approximately 10 seconds, followed approximately after another 20 seconds by tracer infusion) was performed. The stress test and EKG were performed under the supervision of Dr. Levin. Standard myocardial perfusion SPECT images were obtained after tracer injection at the peak effect of the drug. Images were obtained in a supine position. COMPARISON: No prior myocardial perfusion scintigraphy The projection images were reviewed for image quality, and reveal no significant artifacts. There is a fixed defect of mild severity involving the basal to mid inferolateral wall consistent with infarct. A tiny superimposed area of slightly increased severity on stress imaging is noted visually and may represent a small area of superimposed ischemia. Gated post-stress images demonstrate normal left ventricular volume, normal left ventricular wall motion and? normal ejection fraction of 58 % (normal >45%). Procedure Note Debra Collins MD - 04/18/2025 [facility] [address] [place] [address] EXAMINATION: MYOCARDIAL IMAGING (REST AND PHARMACOLOGIC-STRESS/SPECT) DATE OF STUDY: 04/17/2025 RADIOPHARMACEUTICAL: 10.7 mCi, 30.1 mCi Tc-99m sestamibi i.v. HISTORY: Abnormal stress EKG. Previous FL and CABG, coronary arterydisease, family history of heart disease. Evaluate for ischemia and/ormyocardial infarction. The patient's body mass index (BMI) was 28.13. Theelectrocardiogram during infusion of the pharmacologic agent was negativefor ischemia. FINDINGS: Standard myocardial perfusion SPECT images were obtained afterresting tracer injection. Subsequently, an intravenous infusion ofRegadenoson (0.4 mg of A2A adenosine receptor agonist Regadenoson(Lexiscan), infused intravenously over approximately 10 seconds, followedapproximately after another 20 seconds by tracer infusion) was performed.The stress test and EKG were performed under the supervision of . Standard myocardial perfusion SPECT images were obtained after tracerinjection at the peak effect of the drug. Images were obtained in asupine position. COMPARISON: No prior myocardial perfusion scintigraphy The projection images were reviewed for image quality, and reveal nosignificant artifacts. There is a fixed defect of mild severity involving the basal to midinferolateral wall consistent with infarct. A tiny superimposed area ofslightly increased severity on stress imaging is noted visually and mayrepresent a small area of superimposed ischemia. Gated post-stress images demonstrate normal left ventricular volume,normal left ventricular wall motion and? normal ejection fraction of 58 %(normal >45%). IMPRESSION: 1. Fixed defect of mild severity in the basal to mid inferolateral wallconsistent with infarct. On visual analysis, there is a tiny superimposedarea of slightly increased severity on stress imaging at this locationwhich could represent a small amount of superimposed ischemia. 2. Normal left ventricular size and systolic function. Ordered By: ALEX LEVIN Interpreted By: Debra Collins MD, 04/18/2025 8:53 AM us Alex Levin MD NUC MED Final Result from Last 3 Months Insurance [employer] [id number] Care Teams Glazier Apprentice Relationship Specialty Start Date End Date Alex Levin MD PCP - General FAMILY PRACTICE 09/19/22
--- OUTSIDE RECORDS SUMMARY | 2025-07-14 17:49 | XMS_ITS | Clinical Summary ---
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
--- OUTSIDE RECORDS SUMMARY | 2025-07-14 17:49 | XMS_ITS | Encounter Summary ---
Author Organization [employer] Address 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
--- OUTSIDE RECORDS SUMMARY | 2025-07-14 17:49 | XMS_ITS | Encounter Summary ---
Author Organization [facility] Address [address] 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
--- OUTSIDE RECORDS SUMMARY | 2025-07-14 17:49 | XMS_ITS | Clinical Summary ---
Author Organization [facility] Sylvia jessica Sage Address [address] [place] [address] Care Team Providers Care Solid State Tester Name Role Phone Mendy Fields MD Primary Care Provi rodrigo Allergies No known active allergies Medications aspirin 81 mg enteric coated tablet Take 1 tablet (81 mg total) by mouth daily 90 tablet 3 05/01/2020 Active busPIRone (BUSPAR) 10 mg tablet Take 1 tablet (10 mg total) by mouth 3 (three) times a day 04/30/2025 Active busPIRone (BUSPAR) 5 mg tablet Take 1 tablet (5 mg total) by mouth 3 (three) times a day 04/30/2025 Active irbesartan (AVAPRO) 150 mg tablet Take 1 tablet (150 mg total) by mouth daily 04/30/2025 Active sertraline (ZOLOFT) 50 mg tablet Take 1 tablet (50 mg total) by mouth daily 04/30/2025 Active tamsulosin (FLOMAX) 0.4 mg extended release capsule Take 1 capsule (0.4 mg total) by mouth daily Active traZODone (DESYREL) 100 mg tablet Take 1 tablet (100 mg total) by mouth nightly 04/30/2025 Active evolocumab 140 mg/mL pen injector Inject 1 mL (140 mg total) under the skin every 14 (fourteen) days 6 mL 3 05/27/2025 Active Active Problems Problem Noted Date Diagnosed [...] (01/16/2019): Added automatically from request for surgery [id number] Abnormal cardiovascular stress test 01/16/2019 Overview (01/16/2019): Added automatically from request for surgery [id number] Chronic thoracic back pain 05/07/2016 Overview (01/28/2017): [...] artery disease of n ative artery of [place] heart with stable angina pectoris Assessment & [...] doctor, he may benefit from seeing a painting instructor. I did encourage him to start cardiac [...] up with Dr. Newberry in 3 months. Encounters Date Type Department Care Team Description 05/27/2025 8:30 AM CDT Office Visit [facility] [address] [address] Josh Dominique MD Mixed hyperlipidemia (Primary Dx); Coronary artery disease of [place] artery of [place] heart with stable angina pectoris; S/P CABG (coronary artery bypass graft) from Last 3 Months Immunizations Immunization Administration Dates Next Due DTP 04/15/1983,05/04/1978,02/16/1978 ,1977 Influenza, Unspecified 05/25/2018(Deferred: [place] ent Refused) MMR 07/08/1992 OPV 04/15/1983,05/04/1978,02/16/1978 ,1977 Td, adsorbed 07/08/1992 Surgical History Surgery Date Site/Laterality Comments CORONARY ARTERY BYPASS GRAFT 01/18/2019 CABGx4 Medical History Medical History Date Comments Thyroid nodule Tobacco use Anxiety Coronary artery disease Hyperlipidemia Dyslipidemia Hypertension Anxiety GERD (gastroesophageal reflux disease) 8 years a go Depression Year Heart disease 2 years Arthritis Year Migraines A couple months Family History Medical History Relation Name Comments Drug abuse Brother Drug overdose Coronary artery disease Father's Brother Coronary artery disease, premature; Cancer Maternal Grandfather Bill Coronary artery disease Mother Misty Marii nary artery disease, premature; Diabetes Mother Misty Diabetes mellit us; Heart attack Mother Misty Hypertension Mother Misty Coronary artery disease Mother's Brother Coronary artery disease, premature; Coronary artery disease Paternal Grandfather Coronary artery disease, premature; Relation Name Status Comments Brother Father Alive Father's Brother Maternal Grandfather Bill Alive Mother Misty Mother's Brother Paternal Grandfather Social History Tobacco Use Types Packs/Day Years Used Date Smoking Tobacco: Former Cigarettes 1 20 0 01/17/1999 - 01/17/2019 Smokeless Tobacco: Former Chew Quit: 2022 Alcohol Use Standard Drinks/Week Comments Never 0 [...] on file 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 Gender Identity Not on file Sexual Orientation Not on file Obstetrics History Last Filed Vital Signs Vital Sign Reading Time Taken Comments Blood Pressure 134/88 05/27/2025 8:34 AM CDT Pulse 78 05/27/2025 8:34 AM CDT Temperature 37.2 C (98.9 F) 10/23/2019 9:25 AM FOOD PRODUCTION MACHINE OPERATOR Respiratory Rate 20 03/12/2020 2:05 PM CDT Oxygen Saturation 97% 05/27/2025 8:34 AM CDT Inhaled Oxygen Concentration - - Weight 81.2 kg (179 lb) 05/27/2025 8:34 AM CDT Height 167.6 cm (5' 6) 05/27/2025 8:34 AM CDT Body Mass Index 28.89 05/27/2025 8:34 AM CDT Plan of Treatment Health Maintenance Due Date Last Done Comments Colon Cancer Screening-Colonoscopy 1977 Hepatitis C Screening 1977 DTaP/Tdap/Td Vaccine (5 - Tdap) 07/09/1992 07/08/1992, 04/15/1983, 05/04/1978, Additional history exists Hepatitis B Screening 1995 Pneumococcal vaccine <65 (1 of 2 - PCV) 1996 Depression Screening 12/27/2019 12/26/2018, 05/25/20 18 Regular Well Visit/Exam 18-64 12/27/2019 12/26/2018 Influenza Vaccine Discontinued Procedures Procedure Name Priority Date/Time Associated Diagnosis Comments POCT LIPID PANEL Routine 05/27/2025 8:59 AM CDT Mixed hyperlipidemia from Last 3 Months Results * (ABNORMAL) POCT lipid panel (05/27/2025 8:59 AM CDT) Cholesterol, POC 211 <200 MG/DL HDL, POC 52 >=40 mg/dL Triglycerides, POC 217(A) <=149 mg/dL LDL Cholesterol POC 115 <=129 mg/dL Chol/HDL Ratio, POC 2.2 NONE Non-HDL Cholesterol, POC 158 NONE mg/dL Cholesterol Total, POC 211(A) 30 - 199 mg/dL Capillary blood 05/27/2025 8 :59 AM CDT us Josh Dominique MD POINT OF CARE TEST ORDER LIS Final Result from Last 3 Months Insurance [facility] Address: [place] [address] [facility]PPO Address: [place] [address] [employer] CHOICE PLUS [facility] H[facility]/PPO Address: [address] [address] [place] [address] COMMERCIAL GENERIC Advance Directives For more information, please contact: [phone] * Full Code (Latest Code Status on File) Date Activated Date Inactivated Comments 01/17/2019 1:44 PM 01/22/2019 3:15 PM * Full Code Date Activated Date Inactivated Comments 01/17/2019 11:18 AM 01/17/2019 1:31 PM Care Teams Solid State Tester Relationship Specialty Start Date End Date Mendy Fields MD PCP - General Internal Medicine 12/26/18
--- NOTE | 2025-07-14 17:54 | ED.EXTPRO ---
HPI - Extremity Problem General Chief complaint: Extremity Problem,Nontraumatic Stated complaint: hip pain Time Seen by Provider: 07/14/25 17:54 Source: patient Mode of arrival: ambulatory Limitations: no limitations History of Present Illness HPI Narrative: Patient is a 49-year-old male with a right lower extremity numbness and tingling sensation below the knee coming from the buttocks region. This has been happening for 1 week. No saddle anesthesia. No bowel or urine changes. MD Complaint: extremity pain Onset (ago): week(s) (One) Pain Consistency: constant Location: right and lower extremity Severity scale (1-10): 7 Quality: burning, sharp and constant Radiation: distal Relieving factors: nothing Exacerbating factors: range of motion, weight bearing, walking, exertion and palpation Associated symptoms: denies other symptoms Context: other (Patient having worsening right lower extremity numbness and tingling coming from the buttocks region) Related Data Home Medications ?Medication ?Instructions ?Recorded ?Confirmed ?Last Taken ?Type aspirin 325 mg tablet (Luis 325 mg PO DAILY 02/26/22 12/27/22 Unknown History Aspirin) atorvastatin 20 mg tablet 80 mg PO DAILY 02/26/22 12/27/22 Unknown History trazodone 50 mg tablet 50 mg PO QHS PRN 02/26/22 12/27/22 Unknown History tamsulosin 0.4 mg capsule 0.4 mg PO DAILY 07/01/22 12/27/22 Unknown History amitriptyline 25 mg tablet 25 mg PO QHS 12/27/22 12/27/22 Unknown History buspirone 5 mg tablet 5 mg PO BID 12/27/22 12/27/22 Unknown History metoprolol tartrate 50 mg tablet 25 mg PO BID 12/27/22 12/27/22 Unknown History pantoprazole 40 mg tablet,delayed 40 mg PO QAM 12/27/22 12/27/22 Unknown History release Allergies Allergy/AdvReac Type Severity Reaction Status Date / Time No Known Allergies Allergy Verified 07/14/25 17:51 Review of Systems Review of Systems: All systems reviewed & are unremarkable except as noted in HPI and below Constitutional: Constitutional: Reports no additional constitutional complaints Eyes: Eyes: Reports no additional eye complaints ENT: Reports system reviewed and no additional complaints, except as documented Cardiovascular: Cardiovascular: Reports no additional cardiovascular complaints Respiratory: Respiratory: Reports no additional respiratory complaints Gastrointestinal: Gastrointestinal: Reports no additional gastrointestinal complaints Genitourinary: Genitourinary: Reports no additional male genitourinary complaints Musculoskeletal: Musculoskeletal: Reports no additional musculoskeletal complaints Integumentary/Breasts: Skin/Breast: Reports system reviewed and no additional complaints, except as docu Neurologic: Reports system reviewed and no additional complaints, except as documented Psychiatric: Psychiatric: Reports no additional psychiatric complaints Endocrine: Endocrine: Reports no additional endocrine complaints Hematologic/Lymphatic: Hematologic/Lymphatic: Reports no additional hematologic/lymphatic complaints Allergic/Immunologic: Allergic/Immunologic: Reports no additional allergic/immunologic complaints PMFSH Past Medical History Medical History HLD (hyperlipidemia) HTN (hypertension) CAD (coronary artery disease) Surgical History Surgical History Hx of CABG Family History Family History Mother Acute myocardial infarction Social History Social History Smoking packs per day: 1 Smoking cigarettes per day: 20.0 Years smoked: 28 Smoking pack-years: 28.00 Smoking status: Former smoker Tobacco type: e-cigarettes/vaping Alcohol intake: current Drinks per week: 10 Alcohol use details: Twice a week Substance use: never Substance use type: does not use Living arrangements: with family Gender identity (if verbalized by the patient): Male Sexual Orientation (if Verbalized by the Patient): Straight or Heterosexual Spiritual care concerns: No Exam Const: General: healthy appearing Nutritional Appearance: well nourished Orientation/consciousness: patient oriented x3 HENMT: Head: normal to inspection Ears: external ears normal Face/Nose/Sinus: Normal external nose present Eyes: Conjunctivae: conjunctivae normal Pupils: Equal, round and reactive pupils present EOM: EOMs intact bilaterally Neck: Neck: normal visual inspection Chest: Chest palpation & inspection: normal inspection of the chest Resp: Effort & Inspection: normal respiratory effort and not labored Auscultation: clear to auscultation bilaterally and no crackles Cardio: Rate: regular rate Rhythm: regular rhythm Heart sounds: no murmurs GI: Inspection: non-distended GI Palp: Yes Soft to palpation and No Tenderness to palpation present (GI) Auscultation: normal bowel sounds : General: Yes bladder normal to palpation Back/Spine/Pelvis: Back: no CVA tenderness Skin: General skin exam: normal color Rashes: no rashes Wounds: no wounds Neuro: General: patient oriented x3, moves all extremities and no meningeal signs Other: Right lower extremity has straight leg test positive at 20?; patient limping due to pain and numbness and tingling Extrem: General: normal to inspection, no clubbing, cyanosis or edema and no pedal edema Psych: Mental Status: mental status grossly normal Affect: normal affect Attitude: cooperative Course Vital Signs Vital signs: Vital Signs Temperature 36.1 C L 07/14/25 17:44 Pulse Rate 90 07/14/25 17:44 Respiratory Rate 18 07/14/25 17:44 Pulse Oximetry 97 07/14/25 17:44 Oxygen Delivery Room Air 07/14/25 17:44 Temperature 36.1 C L 07/14/25 17:44 Pulse Rate 90 07/14/25 17:44 Respiratory Rate 18 07/14/25 17:44 Pulse Oximetry 97 07/14/25 17:44 Oxygen Delivery Room Air 07/14/25 17:44 MDM - Extremity (Nontraumatic) MDM Narrative Medical decision making narrative: Patient is a 49-year-old male with right lower extremity numbness and tingling and pain for the past week. We will treat this as a sciatic nerve impingement and give steroids and pain control. Discharge Plan Discharge Clinical Impression: Piriformis syndrome of right side Patient Disposition: Home Condition: Stable Instructions: Piriformis Syndrome (ED) Patient Language: Congolese Prescriptions: New hydrocodone-acetaminophen 5-325 mg tablet 1 tablet PO Q8H PRN (Reason: pain) Qty: 20 0RF Rx Instructions: 1-2 tabs per dose cyclobenzaprine 5 mg tablet 5 mg PO Q8H PRN (Reason: muscle spasm) Qty: 20 0RF Rx Instructions: 1-2 tabs per dose prednisone 20 mg tablet 40 mg PO DAILY 3 Days Qty: 6 0RF No Action aspirin [Luis Aspirin] 325 mg tablet 325 mg PO DAILY trazodone 50 mg tablet 50 mg PO QHS PRN atorvastatin 20 mg tablet 80 mg PO DAILY tamsulosin 0.4 mg capsule 0.4 mg PO DAILY buspirone 5 mg tablet 5 mg PO BID amitriptyline 25 mg tablet 25 mg PO QHS pantoprazole 40 mg tablet,delayed release (DR/EC) 40 mg PO QAM metoprolol tartrate 50 mg tablet 25 mg PO BID acetaminophen [Tylenol Extra Strength] 500 mg tablet 1,000 mg PO Q6H PRN (Reason: pain) Qty: 50 0RF ibuprofen 600 mg tablet 600 mg PO TID PRN (Reason: fever or pain) Qty: 30 0RF Follow-up/Referrals: Regina,Alex Ibrahim MD [Primary Care Provider]
[2025-07-14] MEDS: HYDROcodone/acetaminophen (*CRX) 5-325 MG TABLET 1 TAB PO (18:03)
[2025-07-14] MEDS: KETOROLAC (*BKC) 60 MG/2 ML VIAL IM (18:04)
--- OUTSIDE RECORDS SUMMARY | 2025-07-14 18:15 | XMS_ITS | Encounter Summary ---
Author Organization [facility] Address 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
--- OUTSIDE RECORDS SUMMARY | 2025-07-14 18:16 | XMS_ITS | Clinical Summary ---
Author Organization 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
--- OUTSIDE RECORDS SUMMARY | 2025-07-14 18:16 | XMS_ITS | Encounter Summary ---
Author Organization [facility] Address [address] 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
--- OUTSIDE RECORDS SUMMARY | 2025-07-14 18:16 | XMS_ITS | Clinical Summary ---
Author Organization [facility] Address [address] [place] [address] Care Team Providers Care Nutritional Assistant Name Role Phone Alex Levin MD Primary Care Provider [phone] Allergies No known active allergies Medications aspirin [...] - 04/17/2025 11:59 PM CDT Hospital Encounter [facility] [address] [place] [address] Alex Levin MD Discharge Disposition: Home or Self Care (Routine Discharge) 04/17/2025 8:00 AM CDT - 04/17/2025 9:27 AM CDT Hospital Encounter [facility] [address] [place] [address] Alex Levin MD Discharge Disposition: Home or Self Care (Routine Discharge) 04/17/2025 Travel from Last 3 Months Social History Tobacco Use Types Packs/Day Years Used Date Smoking Tobacco: Former Cigarettes Smokeless Tobacco: Never Tobacco Cessation:Counseling Given: Not Answered Sex and Gender Information Value Date Recorded Sex Assigned at Male 11/22/2024 7:46 AM HORTICULTURAL SPECIALTY GROWER 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 Legal Sex Male 8:59 PM HORTICULTURAL SPECIALTY GROWER INSIDE Gender Identity Not on file Sexual Orientation Not on file Last Filed Vital Signs Vital Sign Reading Time Taken Comments Blood Pressure 139/85 09/20/2022 12:30 AM HORTICULTURAL SPECIALTY GROWER INSIDE Pulse 62 09/20/2022 12:17 AM HORTICULTURAL SPECIALTY GROWER INSIDE Temperature 36.2 C (97.2 F) 09/20/2022 12:17 AM HORTICULTURAL SPECIALTY GROWER INSIDE Respiratory Rate 16 09/20/2022 12:17 AM HORTICULTURAL SPECIALTY GROWER INSIDE Oxygen Saturation 98% 09/20/2022 12:45 AM HORTICULTURAL SPECIALTY GROWER INSIDE Inhaled Oxygen Concentration - - Weight 83.9 kg (185 lb) 09/19/2022 9:09 PM HORTICULTURAL SPECIALTY GROWER INSIDE Height 172.7 cm (5' 8) 09/19/2022 9:09 PM HORTICULTURAL SPECIALTY GROWER INSIDE Body Mass Index 28.13 09/19/2022 9:09 PM HORTICULTURAL SPECIALTY GROWER INSIDE Plan of Treatment Health Maintenance Due Date [...] 8:53 AM Narrative 04/18/2025 9:13 AM CDT [address] [place] [address] EXAMINATION: MYOCARDIAL IMAGING (REST AND PHARMACOLOGIC-STRESS/SPECT) DATE OF STUDY: 04/17/2025 RADIOPHARMACEUTICAL: 10.7 mCi, 30.1 mCi Tc-99m sestamibi i.v. HISTORY: Abnormal stress EKG. Previous MS and CABG, coronary artery disease, family history [...] Procedure Note Debra Collins MD - 04/18/2025 [facility] [address] [place] [address] EXAMINATION: MYOCARDIAL IMAGING (REST AND PHARMACOLOGIC-STRESS/SPECT) DATE OF STUDY: 04/17/2025 RADIOPHARMACEUTICAL: 10.7 mCi, 30.1 mCi Tc-99m sestamibi i.v. HISTORY: Abnormal stress EKG. Previous MS and CABG, coronary arterydisease, family history of [...] Final Result from Last 3 Months Insurance [employer] [place] [id number] Care Teams Nutritional Assistant Relationship Specialty Start Date End Date Alex Levin MD PCP - General FAMILY PRACTICE 09/19/22
--- OUTSIDE RECORDS SUMMARY | 2025-07-14 18:16 | XMS_ITS | Clinical Summary ---
Author Organization [facility] Address [address] [place] [address] Care Team Providers Care Plant General Manager Name Role Phone Trang Woods HEALTH INFORMATION CODER-SECRETARY Primary Care Provide r Source Comments [facility],non-owned Affiliates and Associated Physician Practices is amultiple site organization consisting of ambulatory clinics and hospital sitesin [place], [place] and [place]. This disclosure is being madepursuant to the Care Everywhere program and may not contain all information available regarding this patient. Last updated 18.[employer] Allergies No known active allergies Medications * [...] Comments Blood Pressure 126/93 11/24/2022 9:51 AM VFX ARTIST Pulse 76 11/24/2022 9:51 AM VFX ARTIST Temperature 37.7 C (99.9 F) 11/24/2022 9:51 AM VFX ARTIST Respiratory Rate 12 08/03/2022 3:45 PM CDT Oxygen Saturation 99% 11/24/2022 9:51 AM VFX ARTIST Inhaled Oxygen Concentration - - Weight 87.2 kg (192 lb 3.2 oz) 11/24/2022 9:51 A M VFX ARTIST Height 172.7 cm (5' 8) 11/24/2022 9:51 AM VFX ARTIST Body Mass Index 29.22 11/24/2022 9:51 AM VFX ARTIST Plan of Treatment Health Maintenance Due Date [...] Management General On track( 023 10:00 AM VFX ARTIST) Yadira Hoff scalehouse attendant Procedure Name Priority Date/Time Associated Diagnosis Comments [...] and oxygen saturations were monitored continuously. The CF-UV577E was introduced through the anus and advanced to the terminal ileum. The colonoscopy was performed without difficulty. The patient tolerated the procedure well. The quality of the bowel preparation was evaluated using the BBPS ([place] Bowel Preparation Scale) with scores of: Right [...] entire procedure. Procedure Code(s): --- Professional --- 97339, Colonoscopy, flexible; with removal of tumor(s), polyp(s), or other lesion(s) by snare technique 00429, 59, Colonoscopy, flexible; with biopsy, single or multiple Diagnosis Code(s): --- Professional --- K64.1, Second degree hemorrhoids K63.5, Polyp of colon K52.9, Noninfective gastroenteritis and colitis, unspecified CPT copyright 2019 [employer]. All rights reserved. The codes documented in this report are preliminary and upon hereditary cancer program coordinator review may be revised to meet current compliance requirements. Grecia Gupta, 08/03/2022 6:05:06 PM Note Initiated On: 08/03/2022 1:48 PM Number of Addenda: [address] [address] [facility] 08/03/2022 1:48 PM CDT Grecia Gupta MD GI PROCEDURE ORDERABLES Edited R esult - Final [facility] [employer] * (ABNORMAL) BASIC METABOLIC PANEL (CALCIUM TOTAL) (07/14/2022 12:45 PM CDT) BUN 14 7 - 26 mg/dL 07/14/2022 1:53 PM [facility] Creatinine 0.94 0.71 - 1.16 mg/dL 07/14/2022 1:53 PM [facility] Sodium 140 136 - 145 mmol/L 07/14/2022 1:53 PM [facility] Potassium 5.3(H) 3.5 - 4.5 mmol/L 07/14/2022 1:53 PM [facility] [place] 105 98 - 107 mmol/L 07/14/2022 1:53 PM [facility] CO2 25 22 - 29 mmol/L 07/14/2022 1:53 PM [facility] Glucose 117(H) 70 - 115 mg/dL 07/14/2022 1:53 PM [facility] Calcium 9.4 8.4 - 10.2 mg/dL 07/14/2022 1:53 PM [facility] Anion Gap 15 8 - 18 07/14/2022 1:53 PM [facility] BUN/Creatinine Ratio 15 7 - 23 07/14/2022 1:53 PM [facility] Osmolality Calculated 292 270 - 300 mOsm/kg 07/14/2022 1:53 PM [facility] eGFR by CKD-EPI >90 >=90 mL/min/1.7 3 m2 07/14/2022 1:53 PM [facility] Blood BLOOD SPECIMEN / Unknown Lab Venipuncture / Unknown 07/14/2022 12:45 PM CDT 07/14/2022 1:22 PM T Grecia Gupta MD LAB - CHEMISTRY ORDERABLES Final Result [facility] [address] [place] [address], [facility] [phone] from Last 3 Months or Most Recently Relevant to Health Maintenance Insurance [facility] [facility] Care Teams Plant General Manager Relationship Specialty Start Date End Date Trang Woods APRN-CNP [address] [place] [id number] PCP - General Nurse Practitioner 07/14/22
--- OUTSIDE RECORDS SUMMARY | 2025-07-14 18:16 | XMS_ITS | Clinical Summary ---
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 [address] [place] [address] PCP - General Family Medicine 02/11/23 Ovidio Pierre MD [address] [place] [address] Consulting Physician Neurology 02/11/23
== END 2025-07-14 18:41 | disposition home or self-care (01) ==
PROVIDERS: Emergency Provider Emergency Medicine; PCP Family Medicine
DX: G57.01 Lesion of sciatic nerve, right lower limb (principal); I10 Essential (primary) hypertension; E78.5 Hyperlipidemia, unspecified; I25.10 Atherosclerotic heart disease of native coronary artery without angina pectoris; Z87.891 Personal history of nicotine dependence
CPT/HCPCS: 96372; 99283; A9270; J1885; J7512

== ENCOUNTER 2025-10-08 12:51 | Emergency (ER) | payer OTHER, SELFPAY ==
[2025-10-08] VITALS (21 sets, daily range): BP systolic 134–151; BP diastolic 80–99; PULSE 62–86; RESP 18; TEMP 36.4; O2SAT 94–99
--- NOTE | ~2025-10-08 | CT_ITS ---
CT abdomen pelvis w con Clinical History: abdo pain . Comparison: 07/12/2021 Technique: Axial images lung bases to symphysis pubis 100 mL Omnipaque 350 Coronal, sagittal reformats CT images acquired with automatic exposure control for dose reduction DLP: 495 mGy-cm Findings: Lung bases: Clear. Visualized heart and pericardium: Unremarkable. Liver: Steatosis. Gallbladder: Unremarkable. Spleen: Unchanged small hypodense focus, statistically benign. Pancreas: Mild surrounding stranding. Mild worsening ductal dilatation within body. Adrenal glands: Unremarkable. Kidneys: Right kidney- No hydronephrosis. No renal stones. Small cyst. Left kidney- No hydronephrosis. No renal stones. A few small cysts. Distal esophagus/stomach: Unremarkable. Small bowel loops: Normal caliber and wall thickness. Colon: A few diverticula. Normal caliber and wall thickness. Normal RLQ appendix. Nodes: No enlarged nodes. Peritoneum: No ascites. No free air. Urinary bladder: Unremarkable. Prostate: Mildly prominent. Bones: No acute bony abnormality. Sclerotic lesion right femoral neck as before. Soft tissues: Unremarkable. Aorta: No aneurysm or dissection. Atherosclerotic disease. IVC: Unremarkable. Main portal vein/SMV/splenic vein: Patent. IMPRESSION: 1. Mild acute interstitial pancreatitis. 2. Mild worsening of pancreatic duct dilatation with large probable side branch IPMN. Recommend short interval follow-up MRI abdomen for more definitive characterization. Reviewed, dictated and finalized at location R. RIZED SQUAD CAPTAIN IMPRESSION: 1. Mild acute interstitial pancreatitis. 2. Mild worsening of pancreatic duct dilatation with large probable side branc h IPMN. Recommend short interval follow-up MRI abdomen for more definitive edel acterization.
[2025-10-08] MEDS: SODIUM CHLORIDE 0.9% IV 1,000 ML 999 ML IV CONT ×2 (13:11→14:05)
--- NOTE | 2025-10-08 13:22 | ED.ABDPAIN ---
HPI - Abdominal Pain General Chief Complaint: Abdominal Pain Stated Complaint: Abdominal Pain Time Seen by Provider: 10/08/25 13:18 Source: patient Mode of arrival: ambulatory Limitations: no limitations History of Present Illness HPI narrative: Patient is a 50-year-old male with mid epigastric abdominal pain which extends above the umbilicus and across the abdomen for the past 3 days. He has had pancreatitis recurrent in the past. No major drinking alcohol at this time but did in the past. Associated nausea. MD elicited complaint: abdominal pain Pertinent past history: other (Recurrent pancreatitis) Onset (ago): day(s) (3) Pain Consistency: constant Location: epigastric Severity: moderate Pain scale (0-10): 6 Quality: cramping and sharp Radiation: none Migration to: no migration Exacerbating factors: eating and movement Relieving factors: nothing Context: confirms history of similar episodes Associated symptoms: nausea Treatments prior to arrival: other (None) Related Data Home Medications ?Medication ?Instructions ?Recorded ?Confirmed ?Last Taken ?Type aspirin 325 mg tablet (Luis 325 mg PO DAILY 02/26/22 12/27/22 Unknown History Aspirin) atorvastatin 20 mg tablet 80 mg PO DAILY 02/26/22 12/27/22 Unknown History trazodone 50 mg tablet 50 mg PO QHS PRN 02/26/22 12/27/22 Unknown History tamsulosin 0.4 mg capsule 0.4 mg PO DAILY 07/01/22 12/27/22 Unknown History amitriptyline 25 mg tablet 25 mg PO QHS 12/27/22 12/27/22 Unknown History buspirone 5 mg tablet 5 mg PO BID 12/27/22 12/27/22 Unknown History metoprolol tartrate 50 mg tablet 25 mg PO BID 12/27/22 12/27/22 Unknown History pantoprazole 40 mg tablet,delayed 40 mg PO QAM 12/27/22 12/27/22 Unknown History release Allergies Allergy/AdvReac Type Severity Reaction Status Date / Time No Known Allergies Allergy Verified 07/14/25 17:51 Review of Systems Review of Systems: All systems reviewed & are unremarkable except as noted in HPI and below Constitutional: Constitutional: Reports no additional constitutional complaints Eyes: Eyes: Reports no additional eye complaints ENT: Reports system reviewed and no additional complaints, except as documented Cardiovascular: Cardiovascular: Reports no additional cardiovascular complaints Respiratory: Respiratory: Reports no additional respiratory complaints Genitourinary: Genitourinary: Reports no additional male genitourinary complaints Musculoskeletal: Musculoskeletal: Reports no additional musculoskeletal complaints Integumentary/Breasts: Skin/Breast: Reports system reviewed and no additional complaints, except as docu Neurologic: Reports system reviewed and no additional complaints, except as documented Psychiatric: Psychiatric: Reports no additional psychiatric complaints Endocrine: Endocrine: Reports no additional endocrine complaints Hematologic/Lymphatic: Hematologic/Lymphatic: Reports no additional hematologic/lymphatic complaints Allergic/Immunologic: Allergic/Immunologic: Reports no additional allergic/immunologic complaints PMFSH Past Medical History Medical History HLD (hyperlipidemia) HTN (hypertension) CAD (coronary artery disease) Surgical History Surgical History Hx of CABG Family History Family History Mother Acute myocardial infarction Social History Social History Smoking packs per day: 1 Smoking cigarettes per day: 20.0 Years smoked: 28 Smoking pack-years: 28.00 Smoking status: Former smoker Tobacco type: e-cigarettes/vaping Alcohol intake: current Drinks per week: 10 Alcohol use details: Twice a week Substance use: never Substance use type: does not use Living arrangements: with family Gender identity (if verbalized by the patient): Male Sexual Orientation (if Verbalized by the Patient): Straight or Heterosexual Spiritual care concerns: No Exam Const: General: ill appearing; No no acute distress Nutritional Appearance: well nourished Orientation/consciousness: patient oriented x3 Limitations: no limitations HENMT: Head: normal to inspection Ears: external ears normal Face/Nose/Sinus: Normal external nose present Eyes: Conjunctivae: conjunctivae normal Pupils: Equal, round and reactive pupils present EOM: EOMs intact bilaterally Neck: Neck: normal visual inspection Chest: Chest palpation & inspection: normal inspection of the chest Resp: Effort & Inspection: not labored Auscultation: clear to auscultation bilaterally and no crackles Cardio: Rate: regular rate Rhythm: regular rhythm Heart sounds: no murmurs GI: Inspection: distended GI Palp: Yes Soft to palpation, Yes Tenderness to palpation present (GI), Yes Guarding due to palpation present (GI), No Rigid due to palpation, No Hernia present, No Palpable mass present and Yes Rebound tenderness present Auscultation: normal bowel sounds : General: Yes bladder normal to palpation, Yes Bladder palpation abnormal, Yes CVA tenderness and Yes no CVA tenderness Skin: General skin exam: normal color Rashes: no rashes Wounds: no wounds Neuro: General: patient oriented x3, moves all extremities, no meningeal signs, no focal motor deficits and CN's II-XI intact bilaterally Cranial nerves: Yes Nystagmus not present Speech: normal speech Gait exam (Neuro): Normal gait present Other: Patient is not intoxicated by my examination Extrem: General: normal to inspection, no clubbing, cyanosis or edema and pedal edema present Course Vital Signs Vital signs: Vital Signs Temperature 36.4 C L 10/08/25 12:51 Pulse Rate 86 10/08/25 12:51 Respiratory Rate 18 10/08/25 12:51 Blood Pressure 134/90 10/08/25 12:51 Pulse Oximetry 98 10/08/25 12:51 Oxygen Delivery Room Air 10/08/25 12:51 Temperature 36.4 C L 10/08/25 12:51 Pulse Rate 86 10/08/25 12:51 Respiratory Rate 18 10/08/25 12:51 Blood Pressure 137/99 H 10/08/25 15:01 Pulse Oximetry 99 10/08/25 15:01 Oxygen Delivery Room Air 10/08/25 12:51 [facility] Narrative Medical decision making narrative: Patient is a 50-year-old male with abdominal pain and recurrent pancreatitis. Patient has severe disease with recurrent pancreatitis per history. GI labs and a UA. No cardiac concerns today. IV fluids. Pain control. Patient will be transfer for higher level medical care to [facility]. Differential Diagnosis Differential Diagnosis: Pancreatitis, cholecystitis Medical Records I have reviewed the following patient records and this information was taken into consideration when formulating the assessment and plan.: previous ER visits Lab Data [facility] Lab Attestation statement: I personally reviewed the patient's lab results. 10/08/25 13:46 10/08/25 13:46 Labs: Lab Results 10/08/25 Range/Units 13:46 WBC 8.0 (4.8-10.8) K/mm3 RBC 4.86 (4.70-6.10) M/mm3 Hgb 13.8 L (14.0-18.0) g/dL Hct 42.0 (40.0-54.0) % MCV 86.4 (78.0-102.0) fL MCH 28.4 (27.0-31.0) pg MCHC 32.9 (32-36) g/dL RDW 12.5 (11.6-14.4) % Plt Count 203 (150-420) K/mm3 MPV 10.3 (8.7-11.0) fl Immature Gran % (Auto) 0.5 H (0.0-0.0) % Neut % (Auto) 74.7 H (50.0-70.0) % Lymph % (Auto) 16.5 L (18.0-42.0) % Ward % (Auto) 7.0 (2.0-11.0) % Eos % (Auto) 0.9 L (1.0-6.0) % Baso % (Auto) 0.4 (0.0-1.0) % Lymph # (Auto) 1.32 (1.10-4.50) K/mm3 Ward # (Auto) 0.56 (0.10-0.90) K/mm3 Eos # (Auto) 0.07 (0.02-0.50) K/mm3 Baso # (Auto) 0.03 (0.00-0.10) K/mm3 Abs Immat Gran (auto) 0.04 H (0.00-0.00) K/mm3 Absolute Neuts (auto) 5.96 (1.70-7.20) K/mm3 Absolute Nucleated RBC 0.00 (0.00-0.00) K/mm3 Nucleated RBC % 0.0 (0-0.0) % PT 11.0 (9.50-12.1) Seconds INR 1.0 APTT 27.8 (23.9-30.70) Sec Sodium 139 (137-145) mmol/L Potassium 3.9 (3.4-5.0) mmol/L Chloride 106 (98-107) mmol/L Carbon Dioxide 24 (22-30) mmol/L Anion Gap 9 (4-12) mmol/L BUN 12 D (9-20) mg/dL Creatinine 0.85 (0.7-1.3) mg/dL Estim Creat Clear Calc 90 ml/min Estimated GFR > 60 (59 - ) Glucose 94 (65-110) mg/dL Calculated Osmolality 287 (285-295) mOsm/kg Lactic Acid 0.8 (0.7-2.0) mmol/L Calcium 8.6 (8.4-10.2) mg/dL Total Bilirubin 0.5 (0.2-1.3) mg/dL AST 19 (17-59) U/L ALT 20 (6-50) U/L Alkaline Phosphatase 76 (38-126) U/L Total Protein 6.8 (6.3-8.2) g/dL Albumin 4.4 (3.5-5.1) g/dL Lipase > 2000 H (23-300) U/L Imaging Data Attestation: I personally reviewed and interpreted this imaging study as follows: Radiologist's impression: ITS Impressions Abdomen/Pelvis CT 10/08/25 13:39 IMPRESSION: 1. Mild acute interstitial pancreatitis. 2. Mild worsening of pancreatic duct dilatation with large probable side branch IPMN. Recommend short interval follow-up MRI abdomen for more definitive characterization. CT scan of the abdomen and pelvis with contrast shows IMPRESSION: 1. Mild acute interstitial pancreatitis. 2. Mild worsening of pancreatic duct dilatation with large probable side branch IPMN. Recommend short interval follow-up MRI abdomen for more definitive characterization. Discharge Plan Discharge Clinical Impression: Pancreatitis Patient Disposition: Acute Care Hospital Condition: Stable Patient Language: Urdu Prescriptions: No Action hydrocodone-acetaminophen 5-325 mg tablet 1 tablet PO Q8H PRN (Reason: pain) Qty: 20 0RF Rx Instructions: 1-2 tabs per dose cyclobenzaprine 5 mg tablet 5 mg PO Q8H PRN (Reason: muscle spasm) Qty: 20 0RF Rx Instructions: 1-2 tabs per dose prednisone 20 mg tablet 40 mg PO DAILY 3 Days Qty: 6 0RF aspirin [Luis Aspirin] 325 mg tablet 325 mg PO DAILY trazodone 50 mg tablet 50 mg PO QHS PRN atorvastatin 20 mg tablet 80 mg PO DAILY tamsulosin 0.4 mg capsule 0.4 mg PO DAILY buspirone 5 mg tablet 5 mg PO BID amitriptyline 25 mg tablet 25 mg PO QHS pantoprazole 40 mg tablet,delayed release (/EC) 40 mg PO QAM metoprolol tartrate 50 mg tablet 25 mg PO BID acetaminophen [Tylenol Extra Strength] 500 mg tablet 1,000 mg PO Q6H PRN (Reason: pain) Qty: 50 0RF ibuprofen 600 mg tablet 600 mg PO TID PRN (Reason: fever or pain) Qty: 30 0RF Follow-up/Referrals: Peggy,Trang Cardoza, SOCIAL WORK INSTRUCTOR [Primary Care Provider, Unknown] Time of Disposition: 15:57
--- NOTE | 2025-10-08 13:23 | PC.NURSE ---
Pt to CT scanner with radiology transport.
[2025-10-08 13:51] LABS: Hematocrit 42.0 % (40.0-54.0); Hemoglobin 13.8 g/dL (14.0-18.0); Immature Granulocyte Percent A 0.5 % (0.0-0.0); Lymphocytes Absolute Auto 1.32 K/mm3 (1.10-4.50); Mean Corpuscular HGB Conc 32.9 g/dL (32-36); Mean Corpuscular Hemoglobin 28.4 pg (27.0-31.0); Mean Corpuscular Volume 86.4 fL (78.0-102.0); Nucleated Red Blood Cells Absolute Auto 0.00 K/mm3 (0.00-0.00); Nucleated Red Blood Cells Perc 0.0 % (0-0.0); Platelet Count Result 203 K/mm3 (150-420); Red Blood Count 4.86 M/mm3 (4.70-6.10); White Blood Count 8.0 K/mm3 (4.8-10.8)
[2025-10-08 14:03] LABS: Alanine Aminotransferase 20 U/L (6-50); Albumin Level 4.4 g/dL (3.5-5.1); Alkaline Phosphatase 76 U/L (38-126); Anion Gap 9 mmol/L (4-12); Aspartate Amino Transferase 19 U/L (17-59); Bilirubin,Total 0.5 mg/dL (0.2-1.3); Blood Urea Nitrogen 12 mg/dL (9-20); Calcium 8.6 mg/dL (8.4-10.2); Carbon Dioxide 24 mmol/L (22-30); Chloride 106 mmol/L (98-107); Estimated CRCL calculation 90 ml/min; Estimated Glomerular Filt Rate > 60; Glucose 94 mg/dL (65-110); Osmolality Calculated 287 mOsm/kg (285-295); Potassium 3.9 mmol/L (3.4-5.0); Sodium 139 mmol/L (137-145); Total Protein 6.8 g/dL (6.3-8.2)
[2025-10-08 14:04] LABS: Lipase > 2000 U/L (23-300)
[2025-10-08] MEDS: PIPERACILLIN/TAZOBACTAM SOD 3.375 GM in SODIUM CHLORIDE 0.9% IV 50 ML 100 ML IVPB (14:05)
[2025-10-08 14:06] LABS: INR 1.0; Partial Thromboplastin Time 27.8 Sec (23.9-30.70); Prothrombin Time 11.0 Seconds (9.50-12.1)
[2025-10-08] MEDS: ONDANSETRON INJ 4 MG/2 ML VIAL IV PUSH (14:07)
[2025-10-08] MEDS: HYDROmorphone HCL INJ (*CRX) 2 MG/ML VIAL 0.5 MG IV PUSH (14:07)
--- OUTSIDE RECORDS SUMMARY | 2025-10-08 14:55 | XMS_ITS | Encounter Summary ---
Author Organization [facility] Address [address] [place] [address] Phone Care Team Providers Care Middleware Solutions Architect Name Role Phone Alex Tapia MD Primary Care Provider [phone] Ovidio Pierre MD Unavailable [phone] Reason for Visit * Reason Comments Medication Refill Encounter Details Date Type Department Care Team (Late st Contact Info) Description 02/24/2023 Refill [facility] - [facility]rology [facility] [address] [place] [address] Ovidio Pierre MD [address] [place] [address] Medication Refill Social History Tobacco [...] on file 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
--- OUTSIDE RECORDS SUMMARY | 2025-10-08 14:55 | XMS_ITS | Clinical Summary ---
Author Organization [facility] Address [address] [place] [address] Care Team Providers Care Drafter Detail Name Role Phone Trang Woods STRIKER OFF-CANDY ROLLER Primary Care Provide r Source Comments [facility],non-owned Affiliates and Associated Physician Practices is amultiple site organization consisting of ambulatory clinics and hospital sitesin [place], [place], [place] and [place]. This disclosure is being madepursuant to the Care Everywhere program and may not contain all information available regarding this patient. Last updated 18.[employer] Allergies No known active allergies Medications * [...] Years Used Date Smoking Tobacco: Former Cigarettes 0 Q uit: 2019 Smokeless Tobacco: Former Tobacco [...] Comments Blood Pressure 126/93 11/24/2022 9:51 AM SMOKE AND FLAME SPECIALIST Pulse 76 11/24/2022 9:51 AM SMOKE AND FLAME SPECIALIST Temperature 37.7 C (99.9 F) 11/24/2022 9:51 AM SMOKE AND FLAME SPECIALIST Respiratory Rate 12 08/03/2022 3:45 PM CDT Oxygen Saturation 99% 11/24/2022 9:51 AM SMOKE AND FLAME SPECIALIST Inhaled Oxygen Concentration - - Weight 87.2 kg (192 lb 3.2 oz) 11/24/2022 9:51 A M SMOKE AND FLAME SPECIALIST Height 172.7 cm (5' 8) 11/24/2022 9:51 AM SMOKE AND FLAME SPECIALIST Body Mass Index 29.22 11/24/2022 9:51 AM SMOKE AND FLAME SPECIALIST Plan of Treatment Health Maintenance Due [...] DEPRESSION SCREENING 10/24/2024 COVID-19 VACCINE (1 - 2024-2 6 season) 2025 INFLUENZA VACCINE (#1) 2025 SCREENING [...] Management General On track( 023 10:00 AM SMOKE AND FLAME SPECIALIST) Yadira Hoff marketing production manager Procedure Name Priority Date/Time Associated Diagnosis Comments [...] and oxygen saturations were monitored continuously. The [id number] was introduced through the anus and advanced to the terminal ileum. The colonoscopy was performed without difficulty. The patient tolerated the procedure well. The quality of the bowel preparation was evaluated using the BBPS (Hilliard Bowel Preparation Scale) with scores of: Right [...] entire procedure. Procedure Code(s): --- Professional --- 69163, Colonoscopy, flexible; with removal of tumor(s), polyp(s), or other lesion(s) by snare technique 22054, 59, Colonoscopy, flexible; with biopsy, single or multiple Diagnosis Code(s): --- Professional --- K64.1, Second degree hemorrhoids K63.5, Polyp of colon K52.9, Noninfective gastroenteritis and colitis, unspecified CPT copyright 2019 [employer]. All rights reserved. The codes documented in this report are preliminary and upon fish bait picker review may be revised to meet current compliance requirements. Grecia Gupta, 08/03/2022 6:05:06 PM Note Initiated On: 08/03/2022 1:48 PM Number of Addenda: [address] [address] [facility] 08/03/2022 1:48 PM CDT Grecia Gupta MD GI PROCEDURE ORDERABLES Edited R esult - Final [facility] * (ABNORMAL) BASIC METABOLIC PANEL (CALCIUM TOTAL) (07/14/2022 12:45 PM CDT) BUN 14 7 - 26 mg/dL 07/14/2022 1:53 PM [facility] Creatinine 0.94 0.71 - 1.16 mg/dL 07/14/2022 1:53 PM [facility] Sodium 140 136 - 145 mmol/L 07/14/2022 1:53 PM [facility] Potassium 5.3(H) 3.5 - 4.5 mmol/L 07/14/2022 1:53 PM [facility] Chloride 105 98 - 107 mmol/L 07/14/2022 1:53 PM [facility] CO2 25 22 - 29 mmol/L 07/14/2022 1:53 PM [facility] Glucose 117(H) 70 - 115 mg/dL 07/14/2022 1:53 PM [facility] Calcium 9.4 8.4 - 10.2 mg/dL 07/14/2022 1:53 PM [facility] Anion Gap 15 8 - 18 07/14/2022 1:53 PM [facility] BUN/Creatinine Ratio 15 7 - 23 07/14/2022 1:53 PM [facility] Osmolality Calculated 292 270 - 300 mOsm/kg 07/14/2022 1:53 PM [facility] eGFR by CKD-EPI >90 >=90 mL/min/1.7 3 m2 07/14/2022 1:53 PM [facility] Blood BLOOD SPECIMEN / Unknown Lab Venipuncture / Unknown 07/14/2022 12:45 PM CDT 07/14/2022 1:22 PM [facility] Grecia Gupta MD LAB - CHEMISTRY ORDERABLES Final Result [facility] [address] [place] [address], [facility] [phone] from Last 3 Months or Most Recently Relevant to Health Maintenance Insurance [facility] Care Teams Drafter Detail Relationship Specialty Start Date End Date Trang Woods APRN-CNP [address] [place] [phone] PCP - General Nurse Practitioner 07/14/22
--- OUTSIDE RECORDS SUMMARY | 2025-10-08 14:55 | XMS_ITS | Clinical Summary ---
Author Organization 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
--- OUTSIDE RECORDS SUMMARY | 2025-10-08 14:55 | XMS_ITS | Clinical Summary ---
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 Gender Identity Not on file Sexual Orientation [...] Additional history exists Human Papillomavirus (HPV) Immunization (No Doses Required) Completed Meningococcal Immunization (ACWY) Aged Out No longer eligible based on patient's age to complete this topic Pneumococcal Immunization Combined Aged Out No longer eligible based on patient's age to complete this topic Rotavirus Immunization Aged Out No lo nger eligible based on patient's age to complete this topic Insurance [facility] Care Teams Low Voltage Technician Relationship Specialty [place] [address] [facility] [address] [place] [address] PCP - General Family Medicine 02/11/23 Ovidio Pierre MD [address] [place] [address] Consulting Physician Neurology 02/11/23
--- OUTSIDE RECORDS SUMMARY | 2025-10-08 14:55 | XMS_ITS | Encounter Summary ---
Author Organization [facility] Address [address] [place] [address] Care Team Providers Care Call Center Specialist Name Role Phone Unavailable Primary Care Provider Unavailabl e Encounter Details Date Type Department Care Team (Late st Contact Info) Description 12/12/2005 Emergency [facility] STIlda Euceda MD [facility] 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
--- OUTSIDE RECORDS SUMMARY | 2025-10-08 14:55 | XMS_ITS | Clinical Summary ---
Author Organization [facility] Sylvia jessica Sage Address [address] [place] [address] Care Team Providers Care Granite Worker Name Role Phone Mendy Fields MD Primary [...] (01/16/2019): Added automatically from request for surgery [id number] Abnormal cardiovascular stress test 01/16/2019 Overview (01/16/2019): Added automatically from request for surgery [id number] Chronic thoracic back pain 05/07/2016 Overview (01/28/2017): [...] artery disease of n ative artery of [place] heart with stable angina pectoris Assessment & [...] he may benefit from seeing a paint line production supervisor. I did encourage him to start cardiac [...] disease, premature; Diabetes Mother Misty Diabetes mellit ; Heart attack Mother Misty Hypertension Mother Misty Coronary artery disease Mother's Brother Coronary artery disease, premature; Coronary artery disease Paternal Grandfather Coronary artery disease, premature; Relation Name Status Comments Brother Father Alive Father's Brother Maternal Grandfather Fan Alive Mother Misty Mother's Brother Paternal Grandfather [...] on file Legal Sex Male 7:42 PM HUMAN RESOURCES SUPPORT SPECIALIST Gender Identity Not on file Sexual Orientation Not on file Last Filed Vital Signs Vital Sign Reading Time Taken Comments Blood Pressure 134/88 05/27/2025 8:34 AM CDT Pulse 78 05/27/2025 8:34 AM CDT Temperature 37.2 C (98.9 F) 10/23/2019 9:25 AM HUMAN RESOURCES SUPPORT SPECIALIST Respiratory Rate 20 03/12/2020 2:05 PM CDT [...] Visit/Exam 18-64 12/27/2019 12/26/2018 Influenza Vaccine Discontinued Insurance [facility] PLUS [facility] PLUS [facility] PLUS COMMERCIAL GENERIC [place] [id number] Advance Directives For more information, please contact: [phone] * Full Code (Latest Code Status on File) Date Activated Date Inactivated Comments 01/17/2019 1:44 PM 01/22/2019 3:15 PM * Full Code Date Activated Date Inactivated Comments 01/17/2019 11:18 AM 01/17/2019 1:31 PM Care Teams Granite Worker Relationship Specialty Start Date End Date Mendy Fields MD PCP - General Internal Medicine 12/26/18
--- OUTSIDE RECORDS SUMMARY | 2025-10-08 14:55 | XMS_ITS | Clinical Summary ---
Author Organization [facility] Address [address] [place] [address] Care Team Providers Care Home Health Travel Pt Name Role Phone Alex Tapia MD Primary Care Provider [phone] Allergies No known active allergies Medications aspirin [...] Sex Assigned at Male 11/22/2024 7:46 AM QUOTE CLERK Legal Sex Male 8:59 PM QUOTE CLERK Gender Identity Not on file Sexual Orientation Not on file Last Filed Vital Signs Vital Sign Reading Time Taken Comments Blood Pressure 139/85 09/20/2022 12:30 AM QUOTE CLERK Pulse 62 09/20/2022 12:17 AM QUOTE CLERK Temperature 36.2 C (97.2 F) 09/20/2022 12:17 AM QUOTE CLERK Respiratory Rate 16 09/20/2022 12:17 AM QUOTE CLERK Oxygen Saturation 98% 09/20/2022 12:45 AM QUOTE CLERK Inhaled Oxygen Concentration - - Weight 83.9 kg (185 lb) 09/19/2022 9:09 PM QUOTE CLERK Height 172.7 cm (5' 8) 09/19/2022 9:09 PM QUOTE CLERK Body Mass Index 28.13 09/19/2022 9:09 PM QUOTE CLERK Plan of Treatment Health Maintenance Due Date [...] 1996 COVID-19 Vaccine ( - season) 2025 Influenza Adult (#1) 2025 Hepatitis A Vaccines Aged Out No long er eligible based on patient's age to complete this topic Meningococcal B Vaccine Aged Out No l onger eligible based on patient's age to complete this topic Meningococcal Vaccine Aged Out No randy wei eligible based on patient's age to complete this topic RSV Immunizations Under 20 Months Aged Out No longer eligible based on patient's age to complete this topic Insurance [facility] [place] [id number] Care Teams Home Health Travel Pt Relationship Specialty Start Date End Date Alex Tapia MD PCP - General FAMILY PRACTICE 09/19/22
--- OUTSIDE RECORDS SUMMARY | 2025-10-08 15:50 | XMS_ITS | Clinical Summary ---
Author Organization [facility] Address [address] [place] [address] Care Team Providers Care Industrial Technician Name Role Phone Alex Tapia MD Primary Care Provider [phone] Allergies No known active allergies Medications aspirin [...] Encounters Date Type Department Care Team Description 10/08/2025 Hospital Encounter [facility] 4th Floor Medical [address] [place] [address] Lakia Cintron MD from Last 3 Months Social History Tobacco Use Types Packs/Day Years Used Date Smoking Tobacco: Former Cigarettes Smokeless Tobacco: Never Tobacco Cessation:Counseling Given: Not Answered Sex and Gender Information Value Date Recorded Sex Assigned at Male 11/22/2024 7:46 AM EXTRUDING MACHINE OPERATOR Legal Sex Male 8:59 PM EXTRUDING MACHINE OPERATOR Gender Identity Not on file Sexual Orientation Not on file Last Filed Vital Signs Vital Sign Reading Time Taken Comments Blood Pressure 139/85 09/20/2022 12:30 AM EXTRUDING MACHINE OPERATOR Pulse 62 09/20/2022 12:17 AM EXTRUDING MACHINE OPERATOR Temperature 36.2 C (97.2 F) 09/20/2022 12:17 AM EXTRUDING MACHINE OPERATOR Respiratory Rate 16 09/20/2022 12:17 AM EXTRUDING MACHINE OPERATOR Oxygen Saturation 98% 09/20/2022 12:45 AM EXTRUDING MACHINE OPERATOR Inhaled Oxygen Concentration - - Weight 83.9 kg (185 lb) 09/19/2022 9:09 PM EXTRUDING MACHINE OPERATOR Height 172.7 cm (5' 8) 09/19/2022 9:09 PM EXTRUDING MACHINE OPERATOR Body Mass Index 28.13 09/19/2022 9:09 PM EXTRUDING MACHINE OPERATOR Plan of Treatment Health Maintenance Due [...] of 2 - PCV) 1996 COVID-19 Vaccine (1 - season) 2025 Influenza Adult (#1) 2025 [...] patient's age to complete this topic Insurance [employer] [place] [id number] Care Teams Industrial Technician Relationship Specialty Start Date End Date Alex Tapia MD PCP - General FAMILY PRACTICE 09/19/22
--- OUTSIDE RECORDS SUMMARY | 2025-10-08 15:50 | XMS_ITS | Clinical Summary ---
Author Organization [facility] Address [address] [place] [address] Care Team Providers Care Cafe Server Name Role Phone Trang Woods SHOP HAND-ELECTRICAL INTERN Primary Care Provide r Source Comments [facility],non-owned Affiliates and Associated Physician Practices is amultiple site organization consisting of ambulatory clinics and hospital sitesin [place], [place], [place] and [place]. This disclosure is being madepursuant to the Care Everywhere program and may not contain all information available regarding this patient. Last updated 18.[employer] Allergies No known active allergies Medications * [...] Comments Blood Pressure 126/93 11/24/2022 9:51 AM YARN SPINNER Pulse 76 11/24/2022 9:51 AM YARN SPINNER Temperature 37.7 C (99.9 F) 11/24/2022 9:51 AM YARN SPINNER Respiratory Rate 12 08/03/2022 3:45 PM CDT Oxygen Saturation 99% 11/24/2022 9:51 AM YARN SPINNER Inhaled Oxygen Concentration - - Weight 87.2 kg (192 lb 3.2 oz) 11/24/2022 9:51 A M YARN SPINNER Height 172.7 cm (5' 8) 11/24/2022 9:51 AM YARN SPINNER Body Mass Index 29.22 11/24/2022 9:51 AM YARN SPINNER Plan of Treatment Health Maintenance Due Date [...] Management General On track( 023 10:00 AM YARN SPINNER) 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 The CF-GD834H was introduced through the anus and advanced to the terminal ileum. The colonoscopy was performed without difficulty. The patient tolerated the procedure well. The quality of the bowel preparation was evaluated using the BBPS (Cushing Bowel Preparation Scale) with scores of: Right [...] entire procedure. Procedure Code(s): --- Professional --- 53258, Colonoscopy, flexible; with removal of tumor(s), polyp(s), or other lesion(s) by snare technique 16400, 59, Colonoscopy, flexible; with biopsy, single or multiple Diagnosis Code(s): --- Professional --- K64.1, Second degree hemorrhoids K63.5, Polyp of colon K52.9, Noninfective gastroenteritis and colitis, unspecified CPT copyright 2019 [employer]. All rights reserved. The codes documented in this report are preliminary and upon stock shaper review may be revised to meet current compliance requirements. Grecia Gupta, 08/03/2022 6:05:06 PM Note Initiated On: 08/03/2022 1:48 PM Number of Addenda: [address] [address] [facility] [employer] 08/03/2022 1:48 PM CDT Grecia Gupta MD GI PROCEDURE ORDERABLES Edited R esult - Final [facility] [employer] * (ABNORMAL) BASIC METABOLIC PANEL (CALCIUM TOTAL) (07/14/2022 12:45 PM CDT) BUN 14 7 - 26 mg/dL 07/14/2022 1:53 PM [facility] Creatinine 0.94 0.71 - 1.16 mg/dL 07/14/2022 1:53 PM [facility] Sodium 140 136 - 145 mmol/L 07/14/2022 1:53 PM [facility] Potassium 5.3(H) 3.5 - 4.5 mmol/L 07/14/2022 1:53 PM [facility] Chloride 105 98 - 107 mmol/L 07/14/2022 1:53 PM [facility] CO2 25 22 - 29 mmol/L 07/14/2022 1:53 PM [facility] Glucose 117(H) 70 - 115 mg/dL 07/14/2022 1:53 PM [facility] Calcium 9.4 8.4 - 10.2 mg/dL 07/14/2022 1:53 PM [facility] Anion Gap 15 8 - 18 07/14/2022 1:53 PM [facility] BUN/Creatinine Ratio 15 7 - 23 07/14/2022 1:53 PM [facility] Osmolality Calculated 292 270 - 300 mOsm/kg 07/14/2022 1:53 PM [facility] eGFR by CKD-EPI >90 >=90 mL/min/1.7 3 m2 07/14/2022 1:53 PM [facility] Blood BLOOD SPECIMEN / Unknown Lab Venipuncture / Unknown 07/14/2022 12:45 PM CDT 07/14/2022 1:22 PM [facility] Grecia Gupta MD LAB - CHEMISTRY ORDERABLES Final Result [facility] [address] [place] [address], [place] [phone] from Last 3 Months or Most Recently Relevant to Health Maintenance Insurance [employer] Care Teams Cafe Server Relationship Specialty Start Date End Date Trang Woods APRN-CNP [address] [place] [phone] PCP - General Nurse Practitioner 07/14/22
--- OUTSIDE RECORDS SUMMARY | 2025-10-08 15:50 | XMS_ITS | Encounter Summary ---
Author Organization [facility] Address [address] [place] [phone] Phone Care Team Providers Care Manager Human Resources Name Role Phone Alex Tapia MD Primary Care Provider Ovidio Pierre MD Unavailable [phone] Reason for Visit * Reason Comments Medication Refill Encounter Details Date Type Department Care Team (Late st Contact Info) Description 02/24/2023 Refill [facility] - [facility] [address] [place] [address] Ovidio Pierre MD [address] [place] [address] Medication Refill Social History Tobacco [...] on file 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
--- OUTSIDE RECORDS SUMMARY | 2025-10-08 15:50 | XMS_ITS | Clinical Summary ---
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
--- OUTSIDE RECORDS SUMMARY | 2025-10-08 15:50 | XMS_ITS | Encounter Summary ---
Author Organization [facility] Address [address] [place] [address] Care Team Providers Care Wirer [address] Light Name Role Phone Alex Tapia MD Primary Care Provider [phone] Encounter Details Date Type Department Care Team (Late st Contact Info) Description 10/08/2025 Hospital Encounter [facility] 4th Floor Medical [address] [place], [place] [address] Lakia Cintron MD [address] [place] [address] [phone] Social History Tobacco Use Types Packs/Day Years Used Date Smoking Tobacco: Former Cigarettes Smokeless Tobacco: Never Sex and Gender Information Value Date Recorded Sex Assigned at Male 11/22/2024 7:46 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
--- OUTSIDE RECORDS SUMMARY | 2025-10-08 15:50 | XMS_ITS | Encounter Summary ---
Author Organization [employer] Address [address] [place] [address] Care Team Providers Care Scheduling Specialist Name Role Phone Unavailable Primary Care Provider Unavailabl e Encounter Details Date Type Department Care Team (Late st Contact Info) Description 12/12/2005 Emergency [facility] STIlda Euceda MD 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
--- OUTSIDE RECORDS SUMMARY | 2025-10-08 15:50 | XMS_ITS | Clinical Summary ---
Author Organization [facility] Sylvia jessica Sage Address [address] [place] [address] Care Team Providers Care Bag Washer Name Role Phone Mendy Fields MD Primary [...] (01/16/2019): Added automatically from request for surgery [id number] Abnormal cardiovascular stress test 01/16/2019 Overview (01/16/2019): Added automatically from request for surgery [id number] Chronic thoracic back pain 05/07/2016 Overview (01/28/2017): [...] artery disease of n ative artery of [place] heart with stable angina pectoris Assessment & [...] doctor, he may benefit from seeing a barrel painter. 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 Gender Identity Not on file Sexual Orientation Not on file Last Filed Vital Signs Vital Sign Reading Time Taken Comments Blood Pressure 134/88 05/27/2025 8:34 AM CDT Pulse 78 05/27/2025 8:34 AM CDT Temperature 37.2 C (98.9 F) 10/23/2019 9:25 AM POWER TOOL REPAIRER Respiratory Rate 20 03/12/2020 2:05 PM CDT [...] 18-64 12/27/2019 12/26/2018 Influenza Vaccine Discontinued Insurance [facility] [employer] PLUS [facility] [employer] PLUS [facility] [employer] PL[employer] FATEM[employer] ALVARE[place] [id number] Advance Directives For more information, please contact: [phone] * Full Code (Latest Code Status on File) Date Activated Date Inactivated Comments 01/17/2019 1:44 PM 01/22/2019 3:15 PM * Full Code Date Activated Date Inactivated Comments 01/17/2019 11:18 AM 01/17/2019 1:31 PM Care Teams Bag Washer Relationship Specialty Start Date End Date Mendy Fields MD PCP - General Internal Medicine 12/26/18
--- OUTSIDE RECORDS SUMMARY | 2025-10-08 15:50 | XMS_ITS | Clinical Summary ---
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
[2025-10-08] MEDS: HYDROmorphone HCL INJ (*CRX) 2 MG/ML VIAL 1 MG IV PUSH (17:31)
--- NOTE | 2025-10-08 19:05 | PC.NURSE ---
Handoff report given to PAIGE Whipple.
--- NOTE | 2025-10-08 19:27 | PC.NURSE ---
ERP aware of pt's vital signs. No new orders.
== END 2025-10-08 19:31 | disposition short-term general hospital (02) ==
PROVIDERS: Emergency Provider Emergency Medicine; PCP Nurse Practitioner
DX: K85.90 Acute pancreatitis without necrosis or infection, unspecified (principal); I25.10 Atherosclerotic heart disease of native coronary artery without angina pectoris; E78.5 Hyperlipidemia, unspecified; I10 Essential (primary) hypertension; Z87.891 Personal history of nicotine dependence
CPT/HCPCS: 36415; 74177; 80053; 83605; 83690; 85025; 85610; 85730; 96361; 96365; 96375; 96376; 99285; J1171; J2405; J2543; J7030; Q9967